=== PATIENT | female | born 1950 | race Caucasian/White ===

== ENCOUNTER 2021-09-20 12:46 | Inpatient (IN) | payer MEDICARE, OTHER ==
[2021-09-20] MEDS ORDERED: ALBUTEROL HFA INHALER INHALATION STA (13:18)
[2021-09-20] MEDS ORDERED: methylPREDNISolone SOD SUCCI 125 MG/2 ML VIAL IV STA (13:18)
--- NOTE | 2021-09-20 13:40 | ED ---
General Adult HPI - General Chief complaint: Shortness of Breath Stated complaint: SERGEI Time Seen by Provider: 09/20/21 13:00 Source: patient, RN notes reviewed, old records reviewed Mode of arrival: wheelchair Limitations: physical limitation - History of Present Illness Initial comments: Patient is a 71-year-old female with past medical history remarkable for pulmonary fibrosis, COPD, rheumatoid arthritis who support historian presents emergency Department complaining of progressively worsening shortness breath. This is been ongoing for multiple weeks to months. She is on 2 L nasal cannula at home. States that she gets worse shortness of breath with any form of movement at home. She states that her son made her come today for further evaluation and she has been having worsening shortness breath over the last few days. She was found to be mildly hypoxic in triage at 89%.Patient does endorse a history of COPD states she has been feeling more short of breath lately but is unable to say exactly how long she's been more short of breath. She believes it has been weeks. She was vaccinated with the initial 2 doses of she believes whether the visor COVID-19 vaccine. Did not receive a booster shot. No known sick contacts. Denies any fevers. Endorses very mild nonproductive cough. Denies any nausea, vomiting, abdominal pain, diarrhea. Does not believe she is on blood thinners no history of blood clots. Has no other acute complaint at this time. - Related Data Home Medications Medication Instructions Recorded Confirmed Apixaban [Eliquis] 5 mg PO BID 09/20/21 09/20/21 Budesonide [Pulmicort] 0.5 mg INHALATION RT-BID 09/20/21 09/20/21 predniSONE 10 mg PO BID 09/20/21 09/20/21 Allergies Allergy/AdvReac Type Severity Reaction Status Date / Time No Known Allergies Allergy Verified 09/20/21 15:13 Review of Systems ROS Statement: Those systems with pertinent positive or pertinent negative responses have been documented in the HPI. Review of Systems: CONST: Denies fever EYES: Denies blurry vision ENT: Denies nasal congestion C/V: Denies Chest pain RESP: Endorses shortness of breath GI: Denies abdominal pain : Denies dysuria SKIN: Denies rash. MSK: Denies joint pain. NEURO: Denies headache ROS Other: All systems not noted in ROS Statement are negative. Past Medical History Past Medical History: COPD, Rheumatoid Arthritis (RA) Additional Past Medical History / Comment(s): home oxygen use History of Any Multi-Drug Resistant Organisms: None Reported Past Surgical History: Section Past Psychological History: No Psychological Hx Reported Smoking Status: Former smoker Past Alcohol Use History: None Reported Past Drug Use History: None Reported General Exam - General Exam Comments Initial Comments: General: Appears in no acute distress. HEAD: Normal with no signs of head trauma. EYES: PERRLA, EOMI, conjunctiva normal, no discharge. ENT: Hearing grossly intact, normal oropharynx. RESPIRATORY: Mildly Increased work of breathing. Hypoxic on normal nasal cannula oxygen 2 L. Mild end expiratory wheezes bilaterally. No obvious rhonchi appreciated. C/V: Regular rate and rhythm. S1 and S2 auscultated, no edema, peripheral pulses 2+ and intact throughout ABD: Abd is soft, nontender, nondistended EXT: Normal range of motion, no obvious deformity SKIN: No rashes or lesions observed on exposed skin. NEURO: Alert and oriented 4. No focal deficits. Has underlying dementia per . Limitations: physical limitation Course Vital Signs 09/20/21 09/20/21 09/20/21 12:53 13:30 13:35 Temperature 98.2 F Pulse Rate 100 Respiratory 22 Rate Blood Pressure 111/70 O2 Sat by Pulse 89 L 70 L 92 L Oximetry 09/20/21 15:42 Temperature 98 F Pulse Rate 78 Respiratory 18 Rate Blood Pressure 118/97 O2 Sat by Pulse 92 L Oximetry Medical Decision Making - Medical Decision Making Based on the patient's presentation and physical exam, I'm concerned for acute infectious etiology for her current symptoms, including COVID-19 pneumonia. Cannot rule out influenza at this time either. This could just be chronic exacerbation of her pulmonary fibrosis. We will obtain a cardiac workup in addition to fluids Covid signs. She'll be given albuterol inhaler as well as IV steroids. D-dimer, troponin, BNP will be obtained. Patient was in agreement with this plan. Respiratory therapist will be monitoring the patient, she was placed on high flow, she did have an episode where she dropped onto 70% on room air. She removed her oxygen at that time. EKG showed no signs of acute ischemia. Chest x-ray revealed diffuse mild infiltrate bilaterally. Superimposed on chronic changes. Laboratory studies remarkable for an elevated d-dimer of 4.3. Patient has a troponin within normal limits at 0.031 as well as a BNP within normal limits at 1090. Patient will be started on maintenance IV fluids. Covid swab is positive, flu swab is negative. Remainder the patient's Covid 19 laboratory studies will be obtained.BNP is relatively normal at 1000. Patient does have an elevated LDH of 1200, and CRP of 18. I reevaluated the patient multiple times throughout her stay here. I spoke with the patient regarding her laboratory studies. She is Saturating 92% on high flow nasal cannula. Like to obtain CT imaging of her chest to a pulmonary embolism due to her elevated d-dimer and she was in agreement this plan. CT PE revealed no signs of pulmonary embolus. I updated the patient. Nursing staff up to the patient's . She'll be admitted to the hospital for further treatment. Pulmonology Dr. Avalos was consulted for her acute on chronic hypoxic respiratory failure as well as Covid 19 infection. She was started on twice a day Decadron, albuterol inhalers, Lovenox. Patient was in agreement this plan. I spoke with the admitting physi rima, Dr. Chan who is covering for Dr. Granados who accepted the patient. Patient was therefore admitted in serious condition. - Lab Data Result diagrams: 09/20/21 13:26 09/20/21 14:01 Lab Results 09/20/21 09/20/21 09/20/21 Range/Units 13:26 13:26 13:26 WBC 7.7 (3.8-10.6) k/uL RBC 4.81 (3.80-5.40) m/uL Hgb 14.1 (11.4-16.0) gm/dL Hct 45.2 (34.0-46.0) % MCV 94.0 (80.0-100.0) fL MCH 29.3 (25.0-35.0) pg MCHC 31.2 (31.0-37.0) g/dL RDW 14.9 (11.5-15.5) % Plt Count 297 (150-450) k/uL MPV 8.6 Neutrophils % 93 % Lymphocytes % 3 % Monocytes % 2 % Eosinophils % 0 % Basophils % 0 % Neutrophils # 7.2 (1.3-7.7) k/uL Lymphocytes # 0.2 L (1.0-4.8) k/uL Monocytes # 0.2 (0-1.0) k/uL Eosinophils # 0.0 (0-0.7) k/uL Basophils # 0.0 (0-0.2) k/uL Hypochromasia Moderate PT 11.6 (9.0-12.0) sec INR 1.1 (<1.2) APTT 27.2 (22.0-30.0) sec D-Dimer 4.31 H (<0.60) mg/L FEU Sodium (137-145) mmol/L Potassium (3.5-5.1) mmol/L Chloride (98-107) mmol/L Carbon Dioxide (22-30) mmol/L Anion Gap mmol/L BUN (7-17) mg/dL Creatinine (0.52-1.04) mg/dL Est GFR (CKD-EPI)AfAm (>60 ml/min/1.73 sqM) Est GFR (CKD-EPI)NonAf (>60 ml/min/1.73 sqM) Glucose (74-99) mg/dL Calcium (8.4-10.2) mg/dL Magnesium (1.6-2.3) mg/dL Total Bilirubin (0.2-1.3) mg/dL AST (14-36) U/L ALT (4-34) U/L Alkaline Phosphatase (38-126) U/L Lactate Dehydrogenase (313-618) U/L Troponin I (0.000-0.034) ng/mL C-Reactive Protein (<1.0) mg/dL NT-Pro-B Natriuret Pep 1090 pg/mL Total Protein (6.3-8.2) g/dL Albumin (3.5-5.0) g/dL Coronavirus (PCR) (Not Detectd) Influenza Type A RNA (Not Detectd) Influenza Type B (PCR) (Not Detectd) 09/20/21 09/20/21 09/20/21 Range/Units 13:26 13:26 14:01 WBC (3.8-10.6) k/uL RBC (3.80-5.40) m/uL Hgb (11.4-16.0) gm/dL Hct (34.0-46.0) % MCV (80.0-100.0) fL MCH (25.0-35.0) pg MCHC (31.0-37.0) g/dL RDW (11.5-15.5) % Plt Count (150-450) k/uL MPV Neutrophils % % Lymphocytes % % Monocytes % % Eosinophils % % Basophils % % Neutrophils # (1.3-7.7) k/uL Lymphocytes # (1.0-4.8) k/uL Monocytes # (0-1.0) k/uL Eosinophils # (0-0.7) k/uL Basophils # (0-0.2) k/uL Hypochromasia PT (9.0-12.0) sec INR (<1.2) APTT (22.0-30.0) sec D-Dimer (<0.60) mg/L FEU Sodium 136 L (137-145) mmol/L Potassium 4.4 (3.5-5.1) mmol/L Chloride 104 (98-107) mmol/L Carbon Dioxide 20 L (22-30) mmol/L Anion Gap 12 mmol/L BUN 19 H (7-17) mg/dL Creatinine 1.05 H (0.52-1.04) mg/dL Est GFR (CKD-EPI)AfAm 62 (>60 ml/min/1.73 sqM) Est GFR (CKD-EPI)NonAf 54 (>60 ml/min/1.73 sqM) Glucose 184 H (74-99) mg/dL Calcium 8.5 (8.4-10.2) mg/dL Magnesium 2.2 (1.6-2.3) mg/dL Total Bilirubin 0.7 (0.2-1.3) mg/dL AST 44 H (14-36) U/L ALT 18 (4-34) U/L Alkaline Phosphatase 69 (38-126) U/L Lactate Dehydrogenase (313-618) U/L Troponin I (0.000-0.034) ng/mL C-Reactive Protein (<1.0) mg/dL NT-Pro-B Natriuret Pep pg/mL Total Protein 8.1 (6.3-8.2) g/dL Albumin 3.7 (3.5-5.0) g/dL Coronavirus (PCR) Detected A (Not Detectd) Influenza Type A RNA Not Detected (Not Detectd) Influenza Type B (PCR) Not Detected (Not Detectd) 09/20/21 09/20/21 Range/Units 14:01 14:01 WBC (3.8-10.6) k/uL RBC (3.80-5.40) m/uL Hgb (11.4-16.0) gm/dL Hct (34.0-46.0) % MCV (80.0-100.0) fL MCH (25.0-35.0) pg MCHC (31.0-37.0) g/dL RDW (11.5-15.5) % Plt Count (150-450) k/uL MPV Neutrophils % % Lymphocytes % % Monocytes % % Eosinophils % % Basophils % % Neutrophils # (1.3-7.7) k/uL Lymphocytes # (1.0-4.8) k/uL Monocytes # (0-1.0) k/uL Eosinophils # (0-0.7) k/uL Basophils # (0-0.2) k/uL Hypochromasia PT (9.0-12.0) sec INR (<1.2) APTT (22.0-30.0) sec D-Dimer (<0.60) mg/L FEU Sodium (137-145) mmol/L Potassium (3.5-5.1) mmol/L Chloride (98-107) mmol/L Carbon Dioxide (22-30) mmol/L Anion Gap mmol/L BUN (7-17) mg/dL Creatinine (0.52-1.04) mg/dL Est GFR (CKD-EPI)AfAm (>60 ml/min/1.73 sqM) Est GFR (CKD-EPI)NonAf (>60 ml/min/1.73 sqM) Glucose (74-99) mg/dL Calcium (8.4-10.2) mg/dL Magnesium (1.6-2.3) mg/dL Total Bilirubin (0.2-1.3) mg/dL AST (14-36) U/L ALT (4-34) U/L Alkaline Phosphatase (38-126) U/L Lactate Dehydrogenase 1218 H (313-618) U/L Troponin I 0.031 (0.000-0.034) ng/mL C-Reactive Protein 18.6 H (<1.0) mg/dL NT-Pro-B Natriuret Pep pg/mL Total Protein (6.3-8.2) g/dL Albumin (3.5-5.0) g/dL Coronavirus (PCR) (Not Detectd) Influenza Type A RNA (Not Detectd) Influenza Type B (PCR) (Not Detectd) - EKG Data -: EKG Interpreted by Me EKG Comments: 12-lead Electrocardiogram Interpretation Note EKG was reviewed and interpreted by myself. 12-lead ECG performed at 1311 is interpreted by me as revealing normal sinus rhythm at a rate of 86 beats per minute. [place] is normal. OK interval is 119 ms, QRS duration is 78 ms, QTc is 454 ms.. There were no ST or T wave abnormalities to suggest myocardial ischemia or injury. R wave progression across the precordium was satisfactory. By my interpretation this EKG is non-diagnostic for acute ischemia. Critical Care Time Critical Care Time: Yes Total Critical Care Time: 35 Critical Care Time: Upon my evaluation, this patient had a high probability of imminent or life- threatening deterioration due to acute on chronic hypoxic respiratory failure, COVID-19 infection, which required my direct attention, intervention, and personal management. I have personally provided 35 minutes of critical care time exclusive of time spent on separately billable procedures. Time includes review of laboratory data, radiology results, discussion with consultants, and monitoring for potential decompensation. Interventions were performed as documented in my note. Disposition Clinical Impression: Pneumonia due to COVID-19 virus, Acute on chronic respiratory failure with hypoxia Disposition: ADMITTED IP TO THIS HOSP Condition: Serious Is patient prescribed a controlled substance at d/c from ED?: No Referrals: Lamont Granados MD [Primary Care Provider] - 1-2 days
[2021-09-20 13:51] LABS: Basophils % (A) 0 %; Eosinophils % (A) 0 %; HCT 45.2 % (34.0-46.0); HGB 14.1 gm/dL (11.4-16.0); Hypochromasia Moderate; Lymphocytes # (A) 0.2 k/uL (1.0-4.8); Lymphocytes % (A) 3 %; MCH 29.3 pg (25.0-35.0); MCHC 31.2 g/dL (31.0-37.0); Mean Platelet Volume 8.6; Monocytes # (A) 0.2 k/uL (0-1.0); Monocytes % (A) 2 %; Neutrophils # (A) 7.2 k/uL (1.3-7.7); Neutrophils % (A) 93 %; Platelet Count 297 k/uL (150-450); RBC 4.81 m/uL (3.80-5.40); RDW 14.9 % (11.5-15.5); WBC 7.7 k/uL (3.8-10.6)
--- NOTE | 2021-09-20 13:58 | XR ---
EXAMINATION TYPE: XR chest 2V DATE OF EXAM: 09/20/2021 COMPARISON: 07/04/2019 INDICATION: difficulty breathing TECHNIQUE: Frontal and lateral views of the chest are obtained. FINDINGS: The heart size is normal. The pulmonary vasculature is prominent. Diffuse increased lung markings are present bilaterally. Findings are nonspecific but can be related to atypical pneumonia. Underlying chronic changes may be present. IMPRESSION: 1. Diffuse mild infiltrate present bilaterally. Correlate for pulmonary edema or atypical pneumonia. This could be superimposed some chronic changes. Follow-up is recommended
[2021-09-20] MEDS ORDERED: ACETAMINOPHEN TAB 325 MG TAB PO PRN (14:31)
[2021-09-20 14:32] LABS: INR 1.1 (<1.2); Partial Thromboplastin Time 27.2 sec (22.0-30.0); Prothrombin Time 11.6 sec (9.0-12.0)
[2021-09-20 14:33] LABS: Albumin 3.7 g/dL (3.5-5.0); Calcium 8.5 mg/dL (8.4-10.2); Magnesium 2.2 mg/dL (1.6-2.3); Potassium 4.4 mmol/L (3.5-5.1); Total Bilirubin 0.7 mg/dL (0.2-1.3); Total Protein 8.1 g/dL (6.3-8.2)
[2021-09-20] MEDS ORDERED: SODIUM CHLORIDE 0.9% 1,000 ML IV STA (15:05)
[2021-09-20 15:29] LABS: C Reactive Protein 18.6 mg/dL (<1.0)
--- NOTE | 2021-09-20 15:49 | CT ---
EXAMINATION TYPE: CT chest angio for PE DATE OF EXAM: 09/20/2021 COMPARISON: Chest x-ray 09/20/2021 HISTORY: difficulty breathing, elevated dimer, covid CT DLP: 397.8 mGycm Automated exposure control for dose reduction was used. CONTRAST: CT Chest for pulmonary embolism performed with with IV Contrast, patient injected with 80 mL of Isovu e 370. Three-dimensional reconstructions performed on an alternate workstation. FINDINGS: LUNGS: There is extensive centrilobular and paraseptal emphysematous change. Interstitial changes are also present, suspect basilar honeycombing consistent with end-stage lung disease, pulmonary fibrosi s. No pleural effusion or pneumothorax. MEDIASTINUM: There is satisfactory enhancement of the pulmonary artery and its branches, there is no CT evidence for pulmonary embolism. Subcarinal soft tissue may represent an mass, adenopathy measurin g approximately 2.7 x 1.7 x 3.4 cm. No pericardial effusion is seen. AORTA: No additional significant abnormality is seen. OTHER: There is a spinal curvature, osteoporotic compression fractures are present at the mid and lo wer thoracic spine. There is a hiatal hernia with partial intrathoracic stomach. IMPRESSION: No evident pulmonary embolism. End-stage lung disease. Subcarinal adenopathy suspected. Paraesophagea l hiatal hernia. Additional findings above.
[2021-09-20] MEDS ORDERED: NALOXONE 0.4 MG/ML 1 ML VIAL IV PRN (15:51)
[2021-09-20] MEDS ORDERED: ENOXAPARIN 40 MG/0.4 ML SYRINGE SQ SCH (16:00)
--- NOTE | 2021-09-20 17:11 | P.CNPUL ---
History of Present Illness Consult date: 09/20/21 Requesting physician: Lamont Granados Reason for consult: dyspnea, hypoxemia, abnormal CXR/CT Chief complaint: Shortness of breath, altered mental status History of present illness: This is a 71-year-old female patient who follows with Dr. Gilmore as her primary care provider. She has a history of rheumatoid arthritis, previous chronic tobacco dependence, mild COPD, DVT of the left lower extremity and history of subacute massive pulmonary embolism maintained on lifelong anticoagulation in th e form of Eliquis. She also has chronic hypoxemic respiratory failure secondary to interstitial lung disease most likely related to her rheumatoid arthritis. She was last seen in our office in February 2020. Back then she had been on Xeljanz and Eliquis. She was brought into the emergency room today with hypoxemia with O2 saturations in the 60s and 70s according to the patient's . She is n ormally on oxygen at 2 L at home. She is seen today in consultation in the emergency room. She is currently sitting up in the stretcher. She has somewhat altered. Awake and alert but confused as to why she's even here in the hospital. She is currently on 15 L high flow nasal cannula to maintain O2 saturations in the low 90s. Chest x-ray shows diffuse mild infiltrate present bilaterally. CT angiogram ruled out pulmonary embolism. She does have evidence of end-stage lung disease and evidence of pulmonary fibrosis. Subcarinal adenopathy suspected. This is measuring 2.7 x 1.7 x 3.4 cm. Paraesophageal hiatal hernia. White count 7.7. Hemoglobin 14.1. Platelets 297. Lymphocytes 0.2. D-dimer 4.31. Sodium 136. Potassium 4.4. Creatinine 1.05. Glucose 184. LDH 1218. C-reactive protein 18.6. Her BMP 1090. Troponin 0.031. Rizo virus by PCR positive. She was initiated on Decadron and Lovenox. Review of Systems ROS unobtainable: due to mental status Past Medical History Past Medical History: COPD, Rheumatoid Arthritis (RA) Additional Past Medical History / Comment(s): home oxygen use History of Any Multi-Drug Resistant Organisms: None Reported Past Surgical History: Section Past Psychological History: No Psychological Hx Reported Smoking Status: Former smoker Past Alcohol Use History: None Reported Past Drug Use History: None Reported Medications and Allergies Home Medications Medication Instructions Recorded Confirmed Type Apixaban [Eliquis] 5 mg PO BID 09/20/21 09/20/21 History Budesonide [Pulmicort] 0.5 mg INHALATION RT-BID 09/20/21 09/20/21 History predniSONE 10 mg PO BID 09/20/21 09/20/21 History Allergies Allergy/AdvReac Type Severity Reaction Status Date / Time No Known Allergies Allergy Verified 09/20/21 15:13 Physical Exam Vitals: Vital Signs Temp Pulse Resp BP Pulse Ox 09/20/21 15:42 98 F 78 18 118/97 92 L 09/20/21 13:35 92 L 09/20/21 13:30 70 L 09/20/21 12:53 98.2 F 100 22 111/70 89 L Intake and Output 09/20/21 09/20/21 09/20/21 06:59 14:59 22:59 Other: Weight 68.039 kg GENERAL EXAM: Alert, doesn't, confused 71-year-old female patient, on 15 L high flow nasal cannula,, comfortable in no apparent distress. HEAD: Normocephalic. EYES: Normal reaction of pupils, equal size. NOSE: Clear with pink turbinates. THROAT: No erythema or exudates. NECK: No masses, no JVD. CHEST: No chest wall deformity. LUNGS: Equal air entry with coarse crackles in the bilateral bases. CVS: S1 and S2 normal with no audible murmur, regular rhythm. ABDOMEN: No hepatosplenomegaly, normal bowel sounds, no guarding or rigidity. SPINE: No scoliosis or deformity SKIN: No rashes CENTRAL NERVOUS SYSTEM: No focal deficits, tone is normal in all 4 extremities. EXTREMITIES: There is no peripheral edema. No clubbing, no cyanosis. Peripheral pulses are intact. Results - Laboratory Findings CBC and BMP: 09/20/21 13:26 09/20/21 14:01 PT/INR, D-dimer PT 11.6 sec (9.0-12.0) 09/20/21 13:26 INR 1.1 (<1.2) 09/20/21 13:26 D-Dimer 4.31 mg/L FEU (<0.60) H 09/20/21 13:26 Abnormal lab findings: Abnormal Labs 09/20/21 09/20/21 09/20/21 13:26 13:26 13:26 Lymphocytes # 0.2 L D-Dimer 4.31 H Sodium Carbon Dioxide BUN Creatinine Glucose AST Lactate Dehydrogenase C-Reactive Protein Coronavirus (PCR) Detected A 09/20/21 09/20/21 14:01 14:01 Lymphocytes # D-Dimer Sodium 136 L Carbon Dioxide 20 L BUN 19 H Creatinine 1.05 H Glucose 184 H AST 44 H Lactate Dehydrogenase 1218 H C-Reactive Protein 18.6 H Coronavirus (PCR) - Diagnostic Findings Chest x-ray: image reviewed CT scan - chest: image reviewed Assessment and Plan Assessment: 1 Acute on chronic hypoxemic respiratory failure secondary to acute COVID-19 pneumonia. The patient had previously been vaccinated. No booster. Unsure as to when her symptoms started. She is a poor historian. Currently on 15 L high flow nasal cannula. 2 Chronic hypoxemic respiratory failure secondary to interstitial lung disease, suspect secondary to rheumatoid arthritis, normally on 2 L nasal cannula 3 Rheumatoid arthritis previously on Xeljanz and Humira [place] for History of sub-acute massive pulmonary embolism. Recommended long-term anticoagulation and remains on Eliquis 4 History of left lower extremity DVT, currently on Eliquis 5 Chronic obstructive pulmonary disease 6 Previous history of chronic tobacco dependence Plan: The patient was seen and evaluated in the emergency department Chest x-ray, CAT scans and labs reviewed Continue Decadron at 6 mg daily Continue her Eliquis at 5 mg twice a day Add vitamin supplements Check a pro-calcitonin May benefit from Baricitinib Titrate the FiO2 as tolerated We will continue to follow and make further recommendations based on her clinical status I, the cosigning physician, performed a history & physical examination of the patient. Lungs sounds are coarse crackles in the posterior bases. Maintaining O2 saturations in the 90s on 15 L high flow nasal cannula. I discussed the ass essment and plan of care with my nurse practitioner, Suzy Donohue. I attest to the above consultation as dictated by her. Time with Patient: Greater than 30
[2021-09-20] MEDS: ASCORBIC ACID 500 MG TAB PO SCH (17:24)
[2021-09-20] MEDS: ZINC SULFATE 220 MG CAP PO SCH (17:24)
[2021-09-20] MEDS: CHOLECALCIFEROL 125 MCG (5000 IU) TABLET PO SCH (17:24)
[2021-09-20] MEDS ORDERED: DEXAMETHASONE SOD PHOSPHATE 10 MG/ML 1 ML VIAL IVP SCH (21:00)
[2021-09-20] MEDS ORDERED: METOPROLOL TARTRATE 25 MG TAB PO STA (21:49)
[2021-09-20] MEDS: APIXABAN 5 MG TAB PO SCH (22:05)
--- NOTE | 2021-09-20 23:20 | P.HPIM ---
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 Apparently patient was found to be hypoxic with pulse ox in the 60s to 70s according to her . Patient has been having worsening shortness of breath for the past few days. Denies any fever or chills. Cough without any sputum production. No nausea vomiting abdominal pain or diarrhea. Patient is vaccinated against COVID-19 with 2 doses. Not received a booster dose yet. Chest x-ray showed diffuse mild infiltrate present bilaterally. Correlate for pulmonary edema or atypical pneumonia. This could be superimposed some chronic changes. Follow-up is recommended. Laboratory data showed D-dimer level 4.[address] angiogram was done which showed no acute pulmonary embolism. End-stage lung disease. Subcarinal adenopathy suspected. Paraesophageal hiatal hernia. Extensive centrilobular and paraseptal emphysematous change. Interstitial changes are also present. Suspected basilar honeycombing consistent with end-stage lung disease. Laboratory showed no wheezing 7.7 hemoglobin 14.1 and platelets 297. Lymphocytes 0.2 D-dimer is 4.31 Sodium 136 potassium 4.4 chloride 104 bicarb is 20 BUN 19 and creatinine 1.05 and blood sugar is 184 lactic acid 4.1 AST 44 ALT 18 alk phos 69 LDH is 1218 troponin 0 0.031 and CRP 18.6 proBNP 1090 and coronavirus PCR detected Review of Systems Constitutional: Patient denies any fever or chills . Does have generalized weakness. No weight loss. Abdomen: Patient denied nausea vomiting and diarrhea and abdominal pain. Cardiovascular: Patient denies any chest pain. Positive short of breath no palpitations. Respiratory: Patient does have cough with minimal sputum production. Shortness of breath. Neurologic: Patient denied any numbness or tingling headache. Musculoskeletal: Patient denies any complaints of joint swelling or deformity. Skin: Negative Psychiatric: Negative Endocrine: No heat or cold intolerance. No recent weight gain. Genitourinary: No dysuria or hematuria. All other 14 point ROS negative except the above Past Medical History Past Medical History: COPD, Rheumatoid Arthritis (RA) Additional Past Medical History / Comment(s): home oxygen use History of Any Multi-Drug Resistant Organisms: None Reported Past Surgical History: Section Past Psychological History: No Psychological Hx Reported Smoking Status: Former smoker Past Alcohol Use History: None Reported Past Drug Use History: None Reported Medications and Allergies Home Medications Medication Instructions Recorded Confirmed Type Apixaban [Eliquis] 5 mg PO BID 09/20/21 09/20/21 History Budesonide [Pulmicort] 0.5 mg INHALATION RT-BID 09/20/21 09/20/21 History predniSONE 10 mg PO BID 09/20/21 09/20/21 History Allergies Allergy/AdvReac Type Severity Reaction Status Date / Time No Known Allergies Allergy Verified 09/20/21 15:13 Physical Exam Vitals: Vital Signs Temp Pulse Pulse Resp BP BP Pulse Ox 09/20/21 22:02 97.8 F 70 30 H 136/85 92 L 09/20/21 19:57 86 L 09/20/21 17:36 98.6 F 86 17 115/76 90 L 09/20/21 15:42 98 F 78 18 118/97 92 L 09/20/21 13:35 92 L 09/20/21 13:30 70 L 09/20/21 12:53 98.2 F 100 22 111/70 89 L Intake and Output 09/20/21 09/20/21 09/21/21 14:59 22:59 06:59 Other: Voiding Method Bedside Commode # Voids 1 Weight 68.039 kg 68.039 kg PHYSICAL EXAMINATION: Patient is lying in the bed comfortably, no acute distress, awake alert and oriented.. HEENT: Normocephalic. Neck is supple. Pupils reactive. Nostrils clear. Oral cavity is moist. Neck reveals no JVD, carotid bruits, or thyromegaly. CHEST EXAMINATION: Trachea is central. Symmetrical expansion.Bilateral fine crackles and diminished air sounds. No wheezing. Nonlabored breathing.. CARDIAC: Normal S1, S2 with no gallops. No murmurs ABDOMEN: Soft. Bowel sounds normal. No organomegaly. No abdominal bruits. Extremities: reveal no edema. No clubbing or cyanosis Neurologically awake, alert, oriented x3 with well-coordinated movements. Mild cognitive impairment. No focal deficits noted Skin: No rash or skin lesions. Psychiatric: Cooperative. Nonsuicidal Musculoskeletal: No joint swelling or deformity. Normal range of motion. Results CBC & Chem 7: 09/20/21 13:26 09/20/21 14:01 Labs: Abnormal Lab Results - Last 24 Hours (Table) 09/20/21 09/20/21 09/20/21 Range/Units 13:26 13:26 13:26 Lymphocytes # 0.2 L (1.0-4.8) k/uL D-Dimer 4.31 H (<0.60) mg/L FEU Sodium (137-145) mmol/L Carbon Dioxide (22-30) mmol/L BUN (7-17) mg/dL Creatinine (0.52-1.04) mg/dL Glucose (74-99) mg/dL Plasma Lactic Acid Reyes (0.7-2.0) mmol/L AST (14-36) U/L Lactate Dehydrogenase (313-618) U/L C-Reactive Protein (<1.0) mg/dL Coronavirus (PCR) Detected A (Not Detectd) 09/20/21 09/20/21 09/20/21 Range/Units 14:01 14:01 14:50 Lymphocytes # (1.0-4.8) k/uL D-Dimer (<0.60) mg/L FEU Sodium 136 L (137-145) mmol/L Carbon Dioxide 20 L (22-30) mmol/L BUN 19 H (7-17) mg/dL Creatinine 1.05 H (0.52-1.04) mg/dL Glucose 184 H (74-99) mg/dL Plasma Lactic Acid Reyes 4.1 H* (0.7-2.0) mmol/L AST 44 H (14-36) U/L Lactate Dehydrogenase 1218 H (313-618) U/L C-Reactive Protein 18.6 H (<1.0) mg/dL Coronavirus (PCR) (Not Detectd) 09/20/21 Range/Units 21:25 Lymphocytes # (1.0-4.8) k/uL D-Dimer (<0.60) mg/L FEU Sodium (137-145) mmol/L Carbon Dioxide (22-30) mmol/L BUN (7-17) mg/dL Creatinine (0.52-1.04) mg/dL Glucose (74-99) mg/dL Plasma Lactic Acid Reyes 2.5 H* (0.7-2.0) mmol/L AST (14-36) U/L Lactate Dehydrogenase (313-618) U/L C-Reactive Protein (<1.0) mg/dL Coronavirus (PCR) (Not Detectd) Thrombosis Risk Factor Assmnt - DVT/VTE Prophylaxis DVT/VTE Prophylaxis: Pharmacologic Prophylaxis ordered - Choose All That Apply Each Risk Factor Represents 2 Points: Age 61-74 years Each Risk Factor Represents 3 Points: History of DVT/PE Thrombosis Risk Factor Assessment Total Risk Factor Score: 5 Thrombosis Risk Factor Assessment Level: High Risk Assessment and Plan Assessment: Acute on chronic hypoxemic respiratory failure secondary to COVID-19 pneumonia. Patient is vaccinated with 2 doses. Awaiting both discharge. Currently requiring 15 L high flow oxygen via nasal cannula. Chronic hypoxic respiratory failure secondary to interstitial lung disease due to rheumatoid arthritis on 2 L oxygen via nasal cannula. 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 with Eliquis History of DVT left lower extremity COPD Prior history of smoking Plan: Patient will be continued on oxygen supplementation and titrate down FiO2 as tolerated. Patient was started on dexamethasone and continue with Eliquis. Continue with multivitamin supplementation. Pulmonary is on board and is considering baricitinib. Prognosis guarded. Continue to follow closely. Time with Patient: Greater than 30
[2021-09-21] MEDS: ASCORBIC ACID 500 MG TAB PO SCH (08:04)
[2021-09-21] MEDS: ZINC SULFATE 220 MG CAP PO SCH (08:04)
[2021-09-21] MEDS: CHOLECALCIFEROL 125 MCG (5000 IU) TABLET PO SCH (08:04)
[2021-09-21] MEDS: APIXABAN 5 MG TAB PO SCH ×2 (08:04→20:00)
[2021-09-21] MEDS: DEXAMETHASONE SOD PHOSPHATE 10 MG/ML 1 ML VIAL IVP SCH (08:05)
[2021-09-21 09:04] LABS: Basophils # (A) 0 X 10*3/uL (0.00-0.10); Basophils % (A) 0 %; Eosinophils # (A) 0 X 10*3/uL (0.04-0.35); Eosinophils % (A) 0 %; HCT 38.1 % (37.2-46.3); HGB 11.7 g/dL (12.0-15.0); Immature Grans, Automated 0.5 %; Lymphocytes # (A) 0.48 X 10*3/uL (0.90-5.00); Lymphocytes % (A) 11.2 %; MCH 27.9 pg (27.0-32.0); MCHC 30.7 g/dL (32.0-37.0); MCV 90.9 fL (80.0-97.0); Monocytes # (A) 0.31 X 10*3/uL (0.20-1.00); Monocytes % (A) 7.2 %; NRBC Per 100 WBC 0 /100 WBCS (0.0-0.0); Neutrophils # (A) 3.49 X 10*3/uL (1.80-7.70); Neutrophils % (A) 81.1 %; Platelet Count 272 X 10*3/uL (140-440); RBC 4.19 X 10*6/uL (4.10-5.20); RDW 14.7 % (11.5-14.5)
[2021-09-21 09:14] LABS: African American GFR (CKD) 86.6 (60.0-200.0); Anion Gap 14.8 mmol/L (10.00-18.00); BUN/Creat Ratio 18.88 Ratio (12.00-20.00); Blood Urea Nitrogen 15.1 mg/dL (9.0-27.0); Carbon Dioxide 18.2 mmol/L (20.0-27.5); Non-African American GFR(CKD) 74.7 (60.0-200.0); Potassium 4.1 mmol/L (3.5-5.5)
--- NOTE | 2021-09-21 16:17 | P.PN ---
Subjective Progress Note Date: 09/21/21 Principal diagnosis: Coronavirus pneumonia. This is a 71-year-old female patient who follows with Dr. Gilmore as her primary care provider. She has a history of rheumatoid arthritis, previous chronic tobacco dependence, mild COPD, DVT of the left lower extremity and history of subacute massive pulmonary embolism maintained on lifelong anticoagulation in the form of Eliquis. She also has chronic hypoxemic respiratory failure secondary to interstitial lung disease most likely related to her rheumatoid arthritis. She was last seen in our office in February 2020. Back then she had been on Xeljanz and Eliquis. She was brought into the emergency room today with hypoxemia with O2 saturations in the 60s and 70s according to the patient's . She is normally on oxygen at 2 L at home. She is seen today in consultation in the emergency room. She is currently sitting up in the stretcher. She has somewhat altered. Awake and alert but confused as to why she's even here in the hospital. She is currently on 15 L high flow nasal cannula to maintain O2 saturations in the low 90s. Chest x-ray shows diffuse mild infiltrate present bilaterally. CT angiogram ruled out pulmonary embolism. She does have evidence of end-stage lung disease and evidence of pulmonary fibr osis. Subcarinal adenopathy suspected. This is measuring 2.7 x 1.7 x 3.4 cm. Paraesophageal hiatal hernia. White count 7.7. Hemoglobin 14.1. Platelets 297. Lymphocytes 0.2. D-dimer 4.31. Sodium 136. Potassium 4.4. Creatinine 1.05. Glucose 184. LDH 1218. C-reactive protein 18.6. Her BMP 1090. Troponin 0.031. Rizo virus by PCR positive. She was initiated on Decadron and Lovenox. Progress note dated 09/21/2021. 71-year-old female seen yesterday in consultation. The patient has a history of rheumatoid arthritis, chronic tobacco use, COPD, DVT, and subacute massive pulmonary embolism, maintained on lifelong anticoagulation. The patient was admitted with a diagnosis of acute on chronic hypoxemic respiratory failure secondary to acute coronavirus pneumonia. The patient apparently has been previously vaccinated. The patient also has a history of rheumatoid arthritis as mentioned above. Currently, the patient's on 15 L high flow nasal O2. Typically, she is on 2 L at home. She's not a practically good historian and was very difficult getting any history from her. Today's laboratory data includes a white count of 4.3, hemoglobin 11.7, hematocrit 38.1, and platelet count of 272,000. Sodium 135, potassium 4.1, chlorides 102, CO2 18, anion gap is 15, BUN 15.1, and creatinine 0.8. Objective - Vital Signs Vital signs: Vital Signs Temp 97.7 F 09/21/21 14:00 Pulse 79 09/21/21 14:00 Resp 18 09/21/21 14:00 BP 120/74 09/21/21 14:00 Pulse Ox 92 L 09/21/21 14:00 Intake & Output 09/20/21 09/21/21 09/21/21 18:59 06:59 18:59 Intake Total 480 Balance 480 Weight 68.039 kg Intake: Oral 480 Other: Voiding Method Bedside Commode # Voids 1 - Exam No acute distress, oriented 3. Currently on 15 L high flow nasal cannula. The patient appears to be a bit confused. HEENT examination is grossly unremarkable. Neck supple. Full range of motion. No adenopathy thyromegaly or neck vein distention. Cardiovascular examination reveals regular rhythm rate. S1-S2 normal. No S3 or S4. No discernible murmur noted. Heart rate 88 bpm. Heart sounds are distant. Lungs reveal bibasilar rhonchi and crackles. Breath sounds equal. There are no wheezes. Abdomen soft bowel sounds are heard. No masses or tenderness. Extremities are intact. No cyanosis clubbing or edema. Skin is without rash or lesion. Neurologic examination is brief but nonfocal. - Labs CBC & Chem 7: 09/21/21 05:47 09/21/21 05:47 Labs: Abnormal Lab Results - Last 24 Hours (Table) 09/20/21 09/20/21 09/20/21 Range/Units 14:01 14:01 14:50 WBC (4.50-10.00) X 10*3/uL Hgb (12.0-15.0) g/dL MCHC (32.0-37.0) g/dL RDW (11.5-14.5) % Lymphocytes # (0.90-5.00) X 10*3/uL Eosinophils # (0.04-0.35) X 10*3/uL Carbon Dioxide (20.0-27.5) mmol/L Glucose (70-110) mg/dL Plasma Lactic Acid Reyes 4.1 H* (0.7-2.0) mmol/L Calcium (8.7-10.3) mg/dL Ferritin 342.0 H (10.0-291.0) ng/mL Procalcitonin 0.96 H (0.02-0.09) ng/mL 09/20/21 09/21/21 09/21/21 Range/Units 21:25 05:47 05:47 WBC 4.30 L (4.50-10.00) X 10*3/uL Hgb 11.7 L (12.0-15.0) g/dL MCHC 30.7 L (32.0-37.0) g/dL RDW 14.7 H (11.5-14.5) % Lymphocytes # 0.48 L (0.90-5.00) X 10*3/uL Eosinophils # 0 L (0.04-0.35) X 10*3/uL Carbon Dioxide 18.2 L (20.0-27.5) mmol/L Glucose 159 H (70-110) mg/dL Plasma Lactic Acid Reyes 2.5 H* (0.7-2.0) mmol/L Calcium 8.0 L (8.7-10.3) mg/dL Ferritin (10.0-291.0) ng/mL Procalcitonin (0.02-0.09) ng/mL Assessment and Plan Assessment: Acute on chronic hypoxemic respiratory failure secondary to coronavirus associat ed pneumonia. Chronic hypoxemic respiratory failure, secondary to interstitial lung disease, with possible rheumatoid arthritis associated pulmonary fibrosis. History of rheumatoid arthritis. History of subacute massive pulmonary embolism, on lifelong anticoagulation. History of left lower extremity DVT. History of COPD, secondary to chronic tobacco dependence. Plan: Plan dated 09/21/2021. The patient remains on an albuterol inhaler, vitamin C, vitamin D3, Decadron, zinc, and Eliquis chronically. The patient is currently on 15 L high flow nasal O2. She does not appear to be overwhelmingly short of breath despite her high oxygen requirements. Saturations are 92%. The rest of her vital signs are stable including a heart rate of 79 bpm, and a respiratory rate of between 16-18 breaths per minute. We will continue to follow make recommendations where appropriate. Prognosis is guarded. We had considered giving the patient LAILA, but we are concerned because her pro-calcitonin level was 0.96. Time with Patient: Less than 30
[2021-09-22] MEDS: ZINC SULFATE 220 MG CAP PO SCH (07:11)
[2021-09-22] MEDS: APIXABAN 5 MG TAB PO SCH ×2 (07:11→20:24)
[2021-09-22] MEDS: ASCORBIC ACID 500 MG TAB PO SCH (07:11)
[2021-09-22] MEDS: CHOLECALCIFEROL 125 MCG (5000 IU) TABLET PO SCH (07:12)
[2021-09-22] MEDS: DEXAMETHASONE SOD PHOSPHATE 10 MG/ML 1 ML VIAL IVP SCH (08:16)
[2021-09-22] MEDS: ONDANSETRON 4 MG/2 ML VIAL IVP PRN (08:19)
[2021-09-22 09:17] LABS: Basophils # (A) 0.01 X 10*3/uL (0.00-0.10); Basophils % (A) 0.1 %; Eosinophils # (A) 0 X 10*3/uL (0.04-0.35); Eosinophils % (A) 0 %; HCT 36.6 % (37.2-46.3); Immature Grans, Automated 0.6 %; Lymphocytes # (A) 0.44 X 10*3/uL (0.90-5.00); MCH 27.6 pg (27.0-32.0); MCHC 30.1 g/dL (32.0-37.0); MCV 91.7 fL (80.0-97.0); Mean Platelet Volume 10.4 fL (9.5-12.2); Monocytes # (A) 0.52 X 10*3/uL (0.20-1.00); Monocytes % (A) 3.6 %; NRBC Per 100 WBC 0 /100 WBCS (0.0-0.0); Neutrophils # (A) 13.49 X 10*3/uL (1.80-7.70); Neutrophils % (A) 92.7 %; Platelet Count 303 X 10*3/uL (140-440); RBC 3.99 X 10*6/uL (4.10-5.20); RDW 14.6 % (11.5-14.5); WBC 14.54 X 10*3/uL (4.50-10.00)
[2021-09-22 09:25] LABS: African American GFR (CKD) 88.7 (60.0-200.0); Anion Gap 13.5 mmol/L (10.00-18.00); BUN/Creat Ratio 28.57 Ratio (12.00-20.00); Blood Urea Nitrogen 22.4 mg/dL (9.0-27.0); Carbon Dioxide 18.4 mmol/L (20.0-27.5); Non-African American GFR(CKD) 76.5 (60.0-200.0); Potassium 3.6 mmol/L (3.5-5.5)
--- NOTE | 2021-09-22 13:00 | P.CRDCN ---
History of Present Illness Consult date: 09/22/21 Chief complaint: Shortness of breath History of present illness: The patient is a pleasant 71-year-old female patient with a past medical history significant for chronic hypoxic respiratory failure and also history of pulmonary fibrosis as well as chronic obstructive pulmonary disease and also history of DVT/PE who requested to see on the fourth floor for further evaluation off cardiac arrhythmia/atrial fibrillation. The patient is somewhat is a poor historian and she is confused as well. She presented to the hospital complaining of shortness of breath and she was hypoxic. Her oxygen saturation was in the 70s when she was evaluated in the emergency department. Denies any cough or sputum or fever or chills. The patient was tested positive for COVID- 19 infection and currently she is on isolation. She does not recall having any symptoms of chest pain or chest discomfort or dizziness or lightheadedness or any presyncope or syncope. We requested to see the patient for further evaluation of atrial fibrillation. The A. fib was noted on the monitor but the time an EKG was performed she was in sinus mechanism. So overall and no documentation of atrial fibrillation by 12 please EKG. Currently the patient is in sinus rhythm and sinus tachycardia and she is also slightly hypertensive. No history of paroxysmal atrial fibrillation. She currently on oral anticoagulation for DVT/PE. She underwent a workup including sodium of 136 and potassium of 4.4 and creatinine of 1.05. Her EKG showed sinus mechanism without any significant ST or T-wave abnormalities. At this point I'm going to start the patient on Toprol-XL at 25 mg by mouth daily. We will obtain an echocardiogram to evaluate the left ventricle systolic function. We'll continue following up with her. Past Medical History Past Medical History: COPD, Rheumatoid Arthritis (RA) Additional Past Medical History / Comment(s): home oxygen use History of Any Multi-Drug Resistant Organisms: None Reported Past Surgical History: Section Past Psychological History: No Psychological Hx Reported Smoking Status: Former smoker Past Alcohol Use History: None Reported Past Drug Use History: None Reported Medications and Allergies Home Medications Medication Instructions Recorded Confirmed Type Apixaban [Eliquis] 5 mg PO BID 09/20/21 09/20/21 History Budesonide [Pulmicort] 0.5 mg INHALATION RT-BID 09/20/21 09/20/21 History predniSONE 10 mg PO BID 09/20/21 09/20/21 History Allergies Allergy/AdvReac Type Severity Reaction Status Date / Time No Known Allergies Allergy Verified 09/20/21 15:13 Physical Exam Vitals: Vital Signs Temp Pulse Resp BP Pulse Ox 09/22/21 10:00 98.7 F 71 16 161/93 96 09/22/21 05:18 98.6 F 77 22 118/66 92 L 09/22/21 02:00 97.4 F L 73 19 151/89 91 L 09/21/21 21:06 97.6 F 63 17 139/94 96 09/21/21 18:00 97.8 F 78 15 124/77 90 L 09/21/21 14:00 97.7 F 79 18 120/74 92 L Intake and Output 09/21/21 09/22/21 09/22/21 22:59 06:59 14:59 Output Total 600 Balance -600 Output: Urine 600 Other: Voiding Method Bedside Commode # Bowel Movements 2 - Constitutional General appearance: no acute distress - Respiratory Respiratory: bilateral: diminished - Cardiovascular Rhythm: regular Heart sounds: normal: S1, S2 Results 09/22/21 06:05 09/22/21 06:05 CBC 09/22/21 Range/Units 06:05 WBC 14.54 H (4.50-10.00) X 10*3/uL RBC 3.99 L (4.10-5.20) X 10*6/uL Hgb 11.0 L (12.0-15.0) g/dL Hct 36.6 L (37.2-46.3) % Plt Count 303 (140-440) X 10*3/uL Comprehensive Metabolic Panel 09/22/21 Range/Units 06:05 Sodium 139 (135-145) mmol/L Potassium 3.6 (3.5-5.5) mmol/L Chloride 107 (96-109) mmol/L Carbon Dioxide 18.4 L (20.0-27.5) mmol/L BUN 22.4 (9.0-27.0) mg/dL Creatinine 0.8 (0.6-1.5) mg/dL Glucose 145 H (70-110) mg/dL Calcium 8.0 L (8.7-10.3) mg/dL Current Medications Generic Name Dose Route Start Last Admin Trade Name Freq PRN Reason Stop Dose Admin Acetaminophen 650 mg 09/20/21 14:31 Acetaminophen Tab 325 Mg Tab PO Q4HR PRN Fever>101 Albuterol Sulfate 2 puff 09/20/21 14:31 Albuterol Hfa Inhaler INHALATION RT-Q6H PRN Shortness Of Breath Or Wheezing Apixaban 5 mg 09/20/21 21:00 09/22/21 07:11 Apixaban 5 Mg Tab PO 5 mg BID SARAHI Administration Protocol Ascorbic Acid 1,000 mg 09/20/21 17:15 09/22/21 07:11 Ascorbic Acid 500 Mg Tab PO 1,000 mg DAILY SARAHI Administration Cholecalciferol 125 mcg 09/20/21 17:15 09/22/21 07:12 Cholecalciferol 125 Mcg (5000 Iu) Tablet PO 125 mcg DAILY SARAHI Administration Dexamethasone Sodium Phosphate 6 mg 09/21/21 09:00 09/22/21 08:16 Dexamethasone Sod Phosphate 10 Mg/Ml 1 Ml Vial IVP 6 mg DAILY SARAHI Administration Naloxone HCl 0.2 mg 09/20/21 15:51 Naloxone 0.4 Mg/Ml 1 Ml Vial IV Q2M PRN Opioid Reversal Ondansetron HCl 4 mg 09/22/21 08:15 09/22/21 08:19 Ondansetron 4 Mg/2 Ml Vial IVP 4 mg Q6HR PRN Administration Nausea And Vomiting Zinc Sulfate 220 mg 09/20/21 17:15 09/22/21 07:11 Zinc Sulfate 220 Mg Cap PO 220 mg DAILY SARAHI Administration Intake and Output 09/21/21 09/22/21 09/22/21 22:59 06:59 14:59 Output Total 600 Balance -600 Output: Urine 600 Other: Voiding Method Bedside Commode # Bowel Movements 2 09/22/21 06:05 09/22/21 06:05 Assessment and Plan Assessment: Assessment #1 acute on chronic hypoxic respiratory failure #2 COVID-19 infection #3 history of DVT/PE #4 cardiac arrhythmia in the term of paroxysmal atrial fibrillation #5 multiple comorbid conditions Plan #1 the patient is already on oral anticoagulation we'll continue that #2 consider starting her on beta karsten with Toprol-XL #3 obtain an echocardiogram was Doppler #4 follow-up with the patient
--- NOTE | 2021-09-22 14:29 | P.PN ---
Subjective Progress Note Date: 09/22/21 Principal diagnosis: Coronavirus pneumonia. This is a 71-year-old female patient who follows with Dr. Gilmore as her primary care provider. She has a history of rheumatoid arthritis, previous chronic tobacco dependence, mild COPD, DVT of the left lower extremity and history of subacute massive pulmonary embolism maintained on lifelong anticoagulation in the form of Eliquis. She also has chronic hypoxemic respiratory failure secondary to interstitial lung disease most likely related to her rheumatoid arthritis. She was last seen in our office in February 2020. Back then she had been on Xeljanz and Eliquis. She was brought into the emergency room today with hypoxemia with O2 saturations in the 60s and 70s according to the patient's . She is normally on oxygen at 2 L at home. She is seen today in consultation in the emergency room. She is currently sitting up in the stretcher. She has somewhat altered. Awake and alert but confused as to why she's even here in the hospital. She is currently on 15 L high flow nasal cannula to maintain O2 saturations in the low 90s. Chest x-ray shows diffuse mild infiltrate present bilaterally. CT angiogram ruled out pulmonary embolism. She does have evidence of end-stage lung disease and evidence of pulmonary fibr osis. Subcarinal adenopathy suspected. This is measuring 2.7 x 1.7 x 3.4 cm. Paraesophageal hiatal hernia. White count 7.7. Hemoglobin 14.1. Platelets 297. Lymphocytes 0.2. D-dimer 4.31. Sodium 136. Potassium 4.4. Creatinine 1.05. Glucose 184. LDH 1218. C-reactive protein 18.6. Her BMP 1090. Troponin 0.031. Rizo virus by PCR positive. She was initiated on Decadron and Lovenox. Progress note dated 09/21/2021. 71-year-old female seen yesterday in consultation. The patient has a history of rheumatoid arthritis, chronic tobacco use, COPD, DVT, and subacute massive pulmonary embolism, maintained on lifelong anticoagulation. The patient was admitted with a diagnosis of acute on chronic hypoxemic respiratory failure secondary to acute coronavirus pneumonia. The patient apparently has been previously vaccinated. The patient also has a history of rheumatoid arthritis as mentioned above. Currently, the patient's on 15 L high flow nasal O2. Typically, she is on 2 L at home. She's not a practically good historian and was very difficult getting any history from her. Today's laboratory data includes a white count of 4.3, hemoglobin 11.7, hematocrit 38.1, and platelet count of 272,000. Sodium 135, potassium 4.1, chlorides 102, CO2 18, anion gap is 15, BUN 15.1, and creatinine 0.8. Progress note dated 09/22/2021. 71-year-old female, seen in consultation 2 days ago. The patient has a history of rheumatoid arthritis, chronic tobacco use and COPD, deep venous thrombosis, and subacute massive pulmonary embolism, maintained on lifelong blood thinners. The patient was admitted with a diagnosis of acute hypoxemic respiratory failure secondary to coronavirus associated pneumonia. The patient has been on both a 15 they're high flow nasal cannula, and a nonrebreather mask, but apparently prefers a nonrebreather mask, as the cannula dries out her nose. She is resting comfortably in the bed. She's not receiving any IV fluids. White count 14.5, hemoglobin 11, hematocrit 36.6, and platelet count 303,000. Sodium 139, potassium 3.6, chlorides 107, CO2 18, anion gap 14, BUN 22, creatinine 0.8. Calcium 8.0. Blood cultures are negative. Objective - Vital Signs Vital signs: Vital Signs Temp 98.7 F 09/22/21 10:00 Pulse 71 09/22/21 10:00 Resp 16 09/22/21 10:00 BP 161/93 09/22/21 10:00 Pulse Ox 96 09/22/21 10:00 Intake & Output 09/21/21 09/22/21 09/22/21 18:59 06:59 18:59 Output Total 600 Balance -600 Output: Urine 600 Other: Voiding Method Bedside Commode # Bowel Movements 2 - Exam No acute distress, oriented 3. Currently on nonrebreather mask. She will use a 15 L high flow nasal cannula from time to time. HEENT examination is grossly unremarkable. Neck supple. Full range of motion. No adenopathy thyromegaly or neck vein distention. Cardiovascular examination reveals regular rhythm rate. S1-S2 normal. No S3 or S4. No discernible murmur noted. Heart rate 71 bpm. Heart sounds are distant. Lungs reveal bibasilar rhonchi and crackles. Breath sounds equal. There are no wheezes. Abdomen soft bowel sounds are heard. No masses or tenderness. Extremities are intact. No cyanosis clubbing or edema. Skin is without rash or lesion. Neurologic examination is brief but nonfocal. - Labs CBC & Chem 7: 09/22/21 06:05 09/22/21 06:05 Labs: Abnormal Lab Results - Last 24 Hours (Table) 09/22/21 09/22/21 Range/Units 06:05 06:05 WBC 14.54 H (4.50-10.00) X 10*3/uL RBC 3.99 L (4.10-5.20) X 10*6/uL Hgb 11.0 L (12.0-15.0) g/dL Hct 36.6 L (37.2-46.3) % MCHC 30.1 L (32.0-37.0) g/dL RDW 14.6 H (11.5-14.5) % Immature Gran # 0.08 H (0.00-0.04) X 10*3/uL Neutrophils # 13.49 H (1.80-7.70) X 10*3/uL Lymphocytes # 0.44 L (0.90-5.00) X 10*3/uL Eosinophils # 0 L (0.04-0.35) X 10*3/uL Carbon Dioxide 18.4 L (20.0-27.5) mmol/L BUN/Creatinine Ratio 28.57 H (12.00-20.00) Ratio Glucose 145 H (70-110) mg/dL Calcium 8.0 L (8.7-10.3) mg/dL Microbiology - Last 24 Hours (Table) 09/20/21 14:57 Blood Culture - Preliminary Blood No Growth after 24 hours 09/20/21 14:47 Blood Culture - Preliminary Blood No Growth after 24 hours Assessment and Plan Assessment: Acute on chronic hypoxemic respiratory failure secondary to coronavirus associated pneumonia. Chronic hypoxemic respiratory failure, secondary to interstitial lung disease, with possible rheumatoid arthritis associated pulmonary fibrosis. History of rheumatoid arthritis. History of subacute massive pulmonary embolism, on lifelong anticoagulation. History of left lower extremity DVT. History of COPD, secondary to chronic tobacco dependence. Plan: Plan dated 09/21/2021. The patient remains on an albuterol inhaler, vitamin C, vitamin D3, Decadron, zinc, and Eliquis chronically. The patient is currently on 15 L high flow nasal O2. She does not appear to be overwhelmingly short of breath despite her high oxygen requirements. Saturations are 92%. The rest of her vital signs are stable including a heart rate of 79 bpm, and a respiratory rate of between 16-18 breaths per minute. We will continue to follow make recommendations where appropriate. Prognosis is guarded. We had considered giving the patient LAILA, but we are concerned because her pro-calcitonin level was 0.96. Plan dated 09/22/2021. The patient remains on appropriate medications albuterol inhaler, vitamin C, vitamin D3, Decadron, zinc, and Eliquis, chronically. The patient is currently on a nonrebreather mask. She will sometimes using 15 L high flow nasal cannula, but that appears to irritate her nasal mucosa. She appears relatively comfortable. She never really complaining about being short of breath. We will continue to follow make recommendations where appropriate. She was not given LAILA, because of an elevated pro calcitonin level. Prognosis is guarded. We will continue to follow. Time with Patient: Less than 30
[2021-09-23] MEDS ORDERED: DILTIAZEM 5 MG/ML 5 ML VIAL IVP STA (00:52)
[2021-09-23] MEDS ORDERED: DILTIAZEM 125 MG in SODIUM CHLORIDE 0.9% 100 ML IV SCH (01:00)
--- NOTE | 2021-09-23 01:15 | P.PN ---
Subjective Progress Note Date: 09/21/21 Patient is a 71-year-old female with a known history of rheumatoid arthritis, pulmonary fibrosis, COPD and previous history of smoking, DVT of the left lower extremity and history of subacute massive pulmonary embolism maintained on lifelong anticoagulation with Eliquis and chronic hypoxic respiratory failure on home oxygen at 2 L due to interstitial lung disease related to rheumatoid arthritis presents to ER with complaints of hypoxia. Apparently patient was found to be hypoxic with pulse ox in the 60s to 70s according to her . Patient has been having worsening shortness of breath for the past few days. Denies any fever or chills. Cough without any sputum production. No nausea vomiting abdominal pain or diarrhea. Patient is vaccinated against COVID-19 with 2 doses. Not received a booster dose yet. Chest x-ray showed diffuse mild infiltrate present bilaterally. Correlate for pulmonary edema or atypical pneumonia. This could be superimposed some chronic changes. Follow-up is recommended. Laboratory data showed D-dimer level 4.[address] angiogram was done which showed no acute pulmonary embolism. End-stage lung disease. Subcarinal adenopathy suspected. Paraesophageal hiatal hernia. Extensive centrilobular and paraseptal emphysematous change. Interstitial changes are also present. Suspected basilar honeycombing consistent with end-stage lung disease. Laboratory showed no wheezing 7.7 hemoglobin 14.1 and platelets 297. Lymphocytes 0.2 D-dimer is 4.31 Sodium 136 potassium 4.4 chloride 104 bicarb is 20 BUN 19 and creatinine 1.05 and blood sugar is 184 lactic acid 4.1 AST 44 ALT 18 alk phos 69 LDH is 1218 troponin 0 0.031 and CRP 18.6 proBNP 1090 and coronavirus PCR detected 09/21/2021 Patient is currently in the surgical unit. Awake alert oriented x3. Admit to hospital due to acute hypoxic rest mylene failure secondary to COVID-19 pneumonia. Patient does have rheumatoid arthritis and chronic interstitial lung disease secondary to above Patient is currently requiring 15 L high flow oxygen via nasal cannula. Does have minimal cough. No chest pain. Patient has been afebrile. No headache or dizziness or lightheadedness. Tolerating oral diet slowly. Laboratory data showed WBC 4.3 hemoglobin 11.7 and platelets 272 Sodium 135 potassium 4.1 chloride 102 bicarb is 18.2 BUN 15.1 and creatinine 0.8 and calcium 8.0 Patient is being continued on dexamethasone, apixaban and multivitamins. Pulmonary is on board. Current medications reviewed. Objective - Vital Signs Vital signs: Vital Signs Temp 97.8 F 09/21/21 18:00 Pulse 78 09/21/21 18:00 Resp 15 09/21/21 18:00 BP 124/77 09/21/21 18:00 Pulse Ox 90 L 09/21/21 18:00 Intake & Output 09/21/21 09/21/21 09/22/21 06:59 18:59 06:59 Intake Total 480 Balance 480 Intake: Oral 480 Other: Voiding Method Bedside Commode # Voids 1 - Exam PHYSICAL EXAMINATION: Patient is lying in the bed comfortably, no acute distress, awake alert and oriented.. HEENT: Normocephalic. Neck is supple. Pupils reactive. Nostrils clear. Oral cavity is moist. Neck reveals no JVD, carotid bruits, or thyromegaly. CHEST EXAMINATION: Trachea is central. Symmetrical expansion.Bilateral fine crackles and diminished air sounds. No wheezing. Nonlabored breathing.. CARDIAC: Normal S1, S2 with no gallops. No murmurs ABDOMEN: Soft. Bowel sounds normal. No organomegaly. No abdominal bruits. Extremities: reveal no edema. No clubbing or cyanosis Neurologically awake, alert, oriented x3 with well-coordinated movements. Mild cognitive impairment. No focal deficits noted Skin: No rash or skin lesions. Psychiatric: Cooperative. Nonsuicidal Musculoskeletal: No joint swelling or deformity. Normal range of motion. - Labs CBC & Chem 7: 09/22/21 06:05 09/22/21 06:05 Labs: Abnormal Lab Results - Last 24 Hours (Table) 09/20/21 09/20/21 09/20/21 Range/Units 14:01 14:01 14:50 WBC (4.50-10.00) X 10*3/uL Hgb (12.0-15.0) g/dL MCHC (32.0-37.0) g/dL RDW (11.5-14.5) % Lymphocytes # (0.90-5.00) X 10*3/uL Eosinophils # (0.04-0.35) X 10*3/uL Carbon Dioxide (20.0-27.5) mmol/L Glucose (70-110) mg/dL Plasma Lactic Acid Reyes 4.1 H* (0.7-2.0) mmol/L Calcium (8.7-10.3) mg/dL Ferritin 342.0 H (10.0-291.0) ng/mL Procalcitonin 0.96 H (0.02-0.09) ng/mL 09/20/21 09/21/21 09/21/21 Range/Units 21:25 05:47 05:47 WBC 4.30 L (4.50-10.00) X 10*3/uL Hgb 11.7 L (12.0-15.0) g/dL MCHC 30.7 L (32.0-37.0) g/dL RDW 14.7 H (11.5-14.5) % Lymphocytes # 0.48 L (0.90-5.00) X 10*3/uL Eosinophils # 0 L (0.04-0.35) X 10*3/uL Carbon Dioxide 18.2 L (20.0-27.5) mmol/L Glucose 159 H (70-110) mg/dL Plasma Lactic Acid Reyes 2.5 H* (0.7-2.0) mmol/L Calcium 8.0 L (8.7-10.3) mg/dL Ferritin (10.0-291.0) ng/mL Procalcitonin (0.02-0.09) ng/mL Microbiology - Last 24 Hours (Table) 09/20/21 14:57 Blood Culture - Preliminary Blood No Growth after 24 hours 09/20/21 14:47 Blood Culture - Preliminary Blood No Growth after 24 hours Assessment and Plan Assessment: Acute on chronic hypoxemic respiratory failure secondary to COVID-19 pneumonia. Patient is vaccinated with 2 doses. Awaiting both discharge. Currently requiring 15 L high flow oxygen via nasal cannula. Chronic hypoxic respiratory failure secondary to interstitial lung disease due to rheumatoid arthritis on 2 L oxygen via nasal cannula. 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 with Eliquis History of DVT left lower extremity COPD Prior history of smoking Plan: Patient will be continued on oxygen supplementation and titrate down FiO2 as tolerated. Patient was started on dexamethasone and continue with Eliquis. Continue with multivitamin supplementation. Pulmonary is on board and is considering baricitinib. Prognosis guarded. Continue to follow closely. Time with Patient: Greater than 30
--- NOTE | 2021-09-23 01:18 | P.PN ---
Subjective Progress Note Date: 09/22/21 Patient is a 71-year-old female with a known history of rheumatoid arthritis, pulmonary fibrosis, COPD and previous history of smoking, DVT of the left lower extremity and history of subacute massive pulmonary embolism maintained on lifelong anticoagulation with Eliquis and chronic hypoxic respiratory failure on home oxygen at 2 L due to interstitial lung disease related to rheumatoid arthritis presents to ER with complaints of hypoxia. Apparently patient was found to be hypoxic with pulse ox in the 60s to 70s according to her . Patient has been having worsening shortness of breath for the past few days. Denies any fever or chills. Cough without any sputum production. No nausea vomiting abdominal pain or diarrhea. Patient is vaccinated against COVID-19 with 2 doses. Not received a booster dose yet. Chest x-ray showed diffuse mild infiltrate present bilaterally. Correlate for pulmonary edema or atypical pneumonia. This could be superimposed some chronic changes. Follow-up is recommended. Laboratory data showed D-dimer level 4.[address] angiogram was done which showed no acute pulmonary embolism. End-stage lung disease. Subcarinal adenopathy suspected. Paraesophageal hiatal hernia. Extensive centrilobular and paraseptal emphysematous change. Interstitial changes are also present. Suspected basilar honeycombing consistent with end-stage lung disease. Laboratory showed no wheezing 7.7 hemoglobin 14.1 and platelets 297. Lymphocytes 0.2 D-dimer is 4.31 Sodium 136 potassium 4.4 chloride 104 bicarb is 20 BUN 19 and creatinine 1.05 and blood sugar is 184 lactic acid 4.1 AST 44 ALT 18 alk phos 69 LDH is 1218 troponin 0 0.031 and CRP 18.6 proBNP 1090 and coronavirus PCR detected 09/21/2021 Patient is currently in the surgical unit. Awake alert oriented x3. Admit to hospital due to acute hypoxic rest mylene failure secondary to COVID-19 pneumonia. Patient does have rheumatoid arthritis and chronic interstitial lung disease secondary to above Patient is currently requiring 15 L high flow oxygen via nasal cannula. Does have minimal cough. No chest pain. Patient has been afebrile. No headache or dizziness or lightheadedness. Tolerating oral diet slowly. Laboratory data showed WBC 4.3 hemoglobin 11.7 and platelets 272 Sodium 135 potassium 4.1 chloride 102 bicarb is 18.2 BUN 15.1 and creatinine 0.8 and calcium 8.0 Patient is being continued on dexamethasone, apixaban and multivitamins. Pulmonary is on board. 09/22/2021 Patient is currently resting in the bed. Still requiring high flow oxygen 50 L via nasal cannula. Patient was admitted to the hospital due to acute on chronic hypoxic respiratory failure secondary to COVID-19 pneumonia. Patient has been afebrile. No headache or dizziness or lightheadedness. No fever no chills. No cough or sputum production. No chest pain. Patient went into atrial fibrillation with rapid A. Cardiology was consulted. Patient was started on Cardizem drip. Laboratory data showed WBC 14.54 hemoglobin 11.0 and platelets 303 sodium 139 potassium 3.6 chloride 107 bicarb is 18.4 BUN 22.4 and creatinine 0.8 Patient is being continued dexamethasone, Eliquis and multivitamins. Current medications reviewed. Objective - Vital Signs Vital signs: Vital Signs Temp 98.7 F 09/22/21 10:00 Pulse 71 09/22/21 10:00 Resp 16 09/22/21 10:00 BP 161/93 09/22/21 10:00 Pulse Ox 96 09/22/21 10:00 Intake & Output 09/21/21 09/22/21 09/22/21 18:59 06:59 18:59 Output Total 600 Balance -600 Output: Urine 600 Other: Voiding Method Bedside Commode # Bowel Movements 2 - Exam PHYSICAL EXAMINATION: Patient is lying in the bed comfortably, no acute distress, awake alert and oriented.. HEENT: Normocephalic. Neck is supple. Pupils reactive. Nostrils clear. Oral cavity is moist. Neck reveals no JVD, carotid bruits, or thyromegaly. CHEST EXAMINATION: Trachea is central. Symmetrical expansion.Bilateral fine crackles and diminished air sounds. No wheezing. Nonlabored breathing.. CARDIAC: Normal S1, S2 with no gallops. No murmurs ABDOMEN: Soft. Bowel sounds normal. No organomegaly. No abdominal bruits. Extremities: reveal no edema. No clubbing or cyanosis Neurologically awake, alert, oriented x3 with well-coordinated movements. Mild cognitive impairment. No focal deficits noted Skin: No rash or skin lesions. Psychiatric: Cooperative. Nonsuicidal Musculoskeletal: No joint swelling or deformity. Normal range of motion. - Labs CBC & Chem 7: 09/22/21 06:05 09/22/21 06:05 Labs: Abnormal Lab Results - Last 24 Hours (Table) 09/22/21 09/22/21 Range/Units 06:05 06:05 WBC 14.54 H (4.50-10.00) X 10*3/uL RBC 3.99 L (4.10-5.20) X 10*6/uL Hgb 11.0 L (12.0-15.0) g/dL Hct 36.6 L (37.2-46.3) % MCHC 30.1 L (32.0-37.0) g/dL RDW 14.6 H (11.5-14.5) % Immature Gran # 0.08 H (0.00-0.04) X 10*3/uL Neutrophils # 13.49 H (1.80-7.70) X 10*3/uL Lymphocytes # 0.44 L (0.90-5.00) X 10*3/uL Eosinophils # 0 L (0.04-0.35) X 10*3/uL Carbon Dioxide 18.4 L (20.0-27.5) mmol/L BUN/Creatinine Ratio 28.57 H (12.00-20.00) Ratio Glucose 145 H (70-110) mg/dL Calcium 8.0 L (8.7-10.3) mg/dL Microbiology - Last 24 Hours (Table) 09/20/21 14:57 Blood Culture - Preliminary Blood No Growth after 24 hours 09/20/21 14:47 Blood Culture - Preliminary Blood No Growth after 24 hours Assessment and Plan Assessment: Acute on chronic hypoxemic respiratory failure secondary to COVID-19 pneumonia. Patient is vaccinated with 2 doses. Awaiting both discharge. Currently requiring 15 L high flow oxygen via nasal cannula. Atrial fibrillation new onset. Chronic hypoxic respiratory failure secondary to interstitial lung disease due to rheumatoid arthritis on 2 L oxygen via nasal cannula. 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 with Eliquis History of DVT left lower extremity COPD Prior history of smoking Plan: Patient will be continued on oxygen supplementation and titrate down FiO2 as tolerated. Patient was started on dexamethasone and continue with Eliquis. Patient was started on Cardizem drip due to new onset atrial fibrillation with rapid ventricular rate. Cardiology was consulted.. Continue with multivitamin supplementation. Pulmonary is on board and is considering baricitinib. Prognosis guarded. Continue to follow closely. Time with Patient: Greater than 30
--- NOTE | 2021-09-23 07:26 | XR ---
EXAMINATION TYPE: XR chest 1V portable DATE OF EXAM: 09/23/2021 Comparison: 09/20/2021 Clinical History: 71-year-old female CoVID pneumonia Findings: Heart normal size. Atherosclerotic arch calcifications. Interstitial infiltrates and specially in the periphery of the mid and lower lungs persist. Interstitial changes in the upper lungs may be slightl y improved. No pleural effusion. Impression: Continued peripheral interstitial COVID infiltrates in the mid and lower lungs. Aeration in the upper lungs may be slightly improved.
[2021-09-23] MEDS: ALBUTEROL HFA INHALER INHALATION PRN (07:48)
[2021-09-23] MEDS: APIXABAN 5 MG TAB PO SCH ×2 (09:05→21:05)
[2021-09-23] MEDS: CHOLECALCIFEROL 125 MCG (5000 IU) TABLET PO SCH (09:05)
[2021-09-23] MEDS: ASCORBIC ACID 500 MG TAB PO SCH (09:05)
[2021-09-23] MEDS: METOPROLOL SUCCINATE (ER) 25 MG TAB.ER.24H PO SCH (09:05)
[2021-09-23] MEDS: DEXAMETHASONE SOD PHOSPHATE 10 MG/ML 1 ML VIAL IVP SCH (09:06)
[2021-09-23] MEDS: ZINC SULFATE 220 MG CAP PO SCH (09:06)
[2021-09-23 10:56] LABS: African American GFR (CKD) >90 (>60 ml/min/1.73 sqM); Anion Gap 6 mmol/L; Blood Urea Nitrogen 14 mg/dL (7-17); C Reactive Protein 3.7 mg/dL (<1.0); Calcium 8.1 mg/dL (8.4-10.2); Carbon Dioxide 25 mmol/L (22-30); Chloride 106 mmol/L (98-107); Glucose 137 mg/dL (74-99); LDH 1058 U/L (313-618); Non-African American GFR(CKD) 80 (>60 ml/min/1.73 sqM); Potassium 3.9 mmol/L (3.5-5.1); Sodium 137 mmol/L (137-145)
[2021-09-23 11:00] LABS: Basophils % (A) 0 %; Eosinophils % (A) 0 %; Hypochromasia Marked; Lymphocytes # (A) 0.4 k/uL (1.0-4.8); Lymphocytes % (A) 4 %; MCV 93.7 fL (80.0-100.0); Mean Platelet Volume 8.2; Monocytes # (A) 0.4 k/uL (0-1.0); Monocytes % (A) 4 %; Neutrophils # (A) 9.1 k/uL (1.3-7.7); Neutrophils % (A) 90 %; Platelet Count 281 k/uL (150-450); RBC 3.74 m/uL (3.80-5.40); RDW 14.8 % (11.5-15.5); WBC 10.1 k/uL (3.8-10.6)
[2021-09-23 11:15] LABS: HGB 10.8 gm/dL (11.4-16.0)
[2021-09-23 14:14] LABS: T4, Free (Free Thyroxine) 1.41 ng/dL (0.78-2.19)
--- NOTE | 2021-09-23 14:21 | P.PN ---
Subjective Progress Note Date: 09/23/21 CHIEF COMPLAINT: SOB HISTORY OF PRESENT ILLNESS: The patient is a pleasant 71-year-old female patient with a past medical history significant for chronic hypoxic respiratory failure and also history of pulmonary fibrosis as well as chronic obstructive pulmonary disease and also history of DVT/PE who requested to see on the fourth floor for further evaluation off cardiac arrhythmia/atrial fibrillation. The patient is somewhat is a poor historian and she is confused as well. She presented to the hospital complaining of shortness of breath and she was hypoxic. Her oxygen saturation was in the 70s when she was evaluated in the emergency department. Denies any cough or sputum or fever or chills. The patient was tested positive for COVID- 19 infection and currently she is on isolation. She does not recall having any symptoms of chest pain or chest discomfort or dizziness or lightheadedness or any presyncope or syncope. We requested to see the patient for further evaluation of atrial fibrillation. The A. fib was noted on the monitor but the time an EKG was performed she was in sinus mechanism. So overall and no documentation of atrial fibrillation by 12 please EKG. Currently the patient is in sinus rhythm and sinus tachycardia and she is also slightly hypertensive. No history of paroxysmal atrial fibrillation. She currently on oral anticoagulation for DVT/PE. She underwent a workup including sodium of 136 and potassium of 4.4 and creatinine of 1.05. Her EKG showed sinus mechanism without any significant ST or T-wave abnormalities. At this point I'm going to start the patient on Toprol-XL at 25 mg by mouth daily. We will obtain an echocardiogram to evaluate the left ventricle systolic function. We'll continue following up with her. 09/23/2021 Patient remains hospitalized on 3S. Telemetry reveals sinus mechanism. She denies chest pain or pressure. She is on high flow nasal cannula. Blood pressure stable. She is anticoagulated with Eliquis. PHYSICAL EXAM: Thorough physical exam not completed secondary to limited evaluation/examination and due to Covid19 ASSESSMENT: Covid 19 New-onset paroxysmal atrial fibrillation with RVR, currently maintaining sinus mechanism Acute on chronic hypoxic respiratory failure Pulmonary fibrosis COPD History of DVT/PE PLAN: Obtain 2-D echo to assess cardiac structure and function Obtain TSH Continue Eliquis Continue metoprolol Continue telemetry monitoring Further recommendations pending patient course Nurse practitioner note has been reviewed by physician. Signing provider agrees with the documented findings, assessment, and plan of care. Objective - Vital Signs Vital signs: Vital Signs Temp 97.0 F L 09/23/21 12:00 Pulse 58 L 09/23/21 12:00 Resp 18 09/23/21 12:00 BP 133/72 09/23/21 12:00 Pulse Ox 96 09/23/21 12:00 Intake & Output 09/22/21 09/23/21 09/23/21 18:59 06:59 18:59 Intake Total 900 Balance 900 Intake: Oral 900 Other: Voiding Method Bedpan # Voids 3 - Labs CBC & Chem 7: 09/23/21 10:03 09/23/21 10:03 Labs: Abnormal Lab Results - Last 24 Hours (Table) 09/23/21 09/23/21 09/23/21 Range/Units 10:03 10:03 10:03 RBC 3.74 L (3.80-5.40) m/uL Hgb 10.8 L D (11.4-16.0) gm/dL Neutrophils # 9.1 H (1.3-7.7) k/uL Lymphocytes # 0.4 L (1.0-4.8) k/uL Glucose 137 H (74-99) mg/dL Calcium 8.1 L (8.4-10.2) mg/dL Lactate Dehydrogenase 1058 H (313-618) U/L C-Reactive Protein 3.7 H (<1.0) mg/dL TSH 0.224 L (0.465-4.680) mIU/L Microbiology - Last 24 Hours (Table) 09/20/21 14:57 Blood Culture - Preliminary Blood No Growth after 48 hours 09/20/21 14:47 Blood Culture - Preliminary Blood No Growth after 48 hours
--- NOTE | 2021-09-23 14:52 | P.PN ---
Subjective Progress Note Date: 09/23/21 This is a 71-year-old female admitted with acute Covid pneumonia, acute on chronic hypoxic respiratory failure, new onset atrial fibrillation and multiple other medical issues. Patient developed atrial fibrillation with RVR last night transferred to telemetry and converted back to sinus rhythm prior to initiation of Cardizem drip. Anticoagulated with Eliquis. Denies chest pain, palpitations or chest pressure. Maintained on covid cocktail. Continues on 15 L high flow nasal cannula to maintain O2 sats in the 90s. Afebrile. Labs pending. Objective - Vital Signs Vital signs: Vital Signs Temp 97.0 F L 09/23/21 12:00 Pulse 58 L 09/23/21 12:00 Resp 18 09/23/21 12:00 BP 133/72 09/23/21 12:00 Pulse Ox 96 09/23/21 12:00 Intake & Output 09/22/21 09/23/21 09/23/21 18:59 06:59 18:59 Intake Total 900 Output Total 425 Balance 475 Intake: Oral 900 Output: Urine 425 Other: Voiding Method Bedpan # Voids 3 - Exam PHYSICAL EXAMINATION: Patient is lying in the bed comfortably, no acute distress, awake alert and oriented. HEENT: Normocephalic. Neck is supple. Pupils reactive. Wearing mask. Neck: Supple, no JVD CHEST EXAMINATION: Nonlabored, Symmetrical expansion.Bilateral fine crackles and diminished air sounds. No wheezing. Loose congested cough CARDIAC: Normal S1, S2 with no gallops. No murmurs. ABDOMEN: Soft. Bowel sounds normal. No organomegaly. No abdominal bruits. +BS. Extremities: no edema. No clubbing or cyanosis. Neurologically awake, alert, oriented x3 with well-coordinated movements. No focal deficits noted Skin: No rash, warm and dry - Labs CBC & Chem 7: 09/23/21 10:03 09/23/21 10:03 Labs: Abnormal Lab Results - Last 24 Hours (Table) 09/23/21 09/23/21 09/23/21 Range/Units 10:03 10:03 10:03 RBC 3.74 L (3.80-5.40) m/uL Hgb 10.8 L D (11.4-16.0) gm/dL Neutrophils # 9.1 H (1.3-7.7) k/uL Lymphocytes # 0.4 L (1.0-4.8) k/uL Glucose 137 H (74-99) mg/dL Calcium 8.1 L (8.4-10.2) mg/dL Lactate Dehydrogenase 1058 H (313-618) U/L C-Reactive Protein 3.7 H (<1.0) mg/dL TSH 0.224 L (0.465-4.680) mIU/L Microbiology - Last 24 Hours (Table) 09/20/21 14:57 Blood Culture - Preliminary Blood No Growth after 48 hours 09/20/21 14:47 Blood Culture - Preliminary Blood No Growth after 48 hours Assessment and Plan Assessment: Acute on chronic hypoxemic respiratory failure secondary to COVID-19 pneumonia. Patient is vaccinated with 2 doses. Currently requiring 15 L high flow oxygen via nasal cannula. Atrial fibrillation new onset. Chronic hypoxic respiratory failure secondary to interstitial lung disease due to rheumatoid arthritis on 2 L oxygen via nasal cannula. 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 Maintain Covid Cocktail, follow closely with pulmonary. Antiarrhythmics as per cardiology. Prognosis guarded given multiple complex medical issues. The impression and plan of care has been dictated as directed. : I performed a history and examination of this patient, discussed the same with the dictator. I agree with the dictator's note ,documented as a scribe. Any additional findings or plans will be noted.
--- NOTE | 2021-09-23 15:00 | P.PN ---
Subjective Progress Note Date: 09/23/21 09/23/2021, seeing this patient for a follow-up. The patient is a case of pulmonary fibrosis secondary to underlying rheumatoid arthritis and the patient has chronic interstitial lung disease/fibrosis involving the lung bases. The patient also has had a previous history of masses/submassive unprovoked p ulmonary embolism requiring catheter directed thrombolytic therapy and the patient has been on long-term and coagulation since. The patient is also known to have COPD, previous history of pulmonary embolism, produces 7 left lower extremity DVT for which she has been maintained on long-term medical condition with Eliquis. In terms of her rheumatoid arthritis, due to financial problems, she has been on a combination of Humira and Xaljenz pparently both of these medications have been discontinued.. The patient is currently hospitalized for an acute hypoxic respiratory failure secondary to COVID 19 related infection with interval worsening in her oxygenation. She is currently on Decadron. S he'll phone and to coagulation with Lovenox. The patient had negative blood cultures. Blood work is essentially stable with a normal renal function. The patient remains on a 10 L oxygen by nasal cannula in addition to the 100% nonrebreather facemask on her current pulse ox on a 96%. She is afebrile. The white cell count is at 10.1 with hemoglobin of 10.8 and a platelet count of 281. BUN is at 14 with a creatinine of 0.7. Sodium level is at 137 . The TSH is at 0.224 with a free T4 of 1.4. LDH level was 1058 with a CRP level of 3.7. Rest of the blood work and electrodes are all within normal limits. the BUN is a 40 with a creatinine of 0.76. Objective - Vital Signs Vital signs: Vital Signs Temp 97.0 F L 09/23/21 12:00 Pulse 58 L 09/23/21 12:00 Resp 18 09/23/21 12:00 BP 133/72 09/23/21 12:00 Pulse Ox 96 09/23/21 12:00 Intake & Output 09/22/21 09/23/21 09/23/21 18:59 06:59 18:59 Intake Total 900 Output Total 425 Balance 475 Intake: Oral 900 Output: Urine 425 Other: Voiding Method Bedpan # Voids 3 - Exam No acute distress, oriented 3. Currently on nonrebreather mask. She will use a 10 L nasal cannula without with 100% nonrebreather facemask. HEENT examination is grossly unremarkable. Neck supple. Full range of motion. No adenopathy thyromegaly or neck vein di stention. Cardiovascular examination reveals regular rhythm rate. S1-S2 normal. No S3 or S4. No discernible murmur noted. Heart rate 71 bpm. Heart sounds are distant. Lungs reveal bibasilar rhonchi and crackles. The patient has coarse crackles in lung bases bilaterally especially in the lower lung uhrt bilaterally. Breath sounds equal. There are no wheezes. Abdomen soft bowel sounds are heard. No masses or tenderness. Extremities are intact. No cyanosis clubbing or edema. The patient has joint deformities related to rheumatoid arthritis. Skin is without rash or lesion. Neurologic examination is brief but nonfocal. - Labs CBC & Chem 7: 09/23/21 10:03 09/23/21 10:03 Labs: Abnormal Lab Results - Last 24 Hours (Table) 09/23/21 09/23/21 09/23/21 Range/Units 10:03 10:03 10:03 RBC 3.74 L (3.80-5.40) m/uL Hgb 10.8 L D (11.4-16.0) gm/dL Neutrophils # 9.1 H (1.3-7.7) k/uL Lymphocytes # 0.4 L (1.0-4.8) k/uL Glucose 137 H (74-99) mg/dL Calcium 8.1 L (8.4-10.2) mg/dL Lactate Dehydrogenase 1058 H (313-618) U/L C-Reactive Protein 3.7 H (<1.0) mg/dL TSH 0.224 L (0.465-4.680) mIU/L Microbiology - Last 24 Hours (Table) 09/20/21 14:57 Blood Culture - Preliminary Blood No Growth after 48 hours 09/20/21 14:47 Blood Culture - Preliminary Blood No Growth after 48 hours Assessment and Plan Plan: Acute on chronic hypoxemic respiratory failure secondary to coronavirus associated pneumonia. The patient has evidence of chronic interstitial lung disease and there has been interval worsening in her oxygenation. The COVID 19 related infection/pneumonia. As such, her hypoxic respiratory failure is multifactorial and a decompensating fact that is the acute community related pneumonia. Note that the patient is also been immunosuppressed with a combination of Humira and Xalgenz on outpatient basis. Currently on Decadron. Currently on anticoagulation with Lovenox. Chronic hypoxemic respiratory failure, secondary to interstitial lung disease, with possible rheumatoid arthritis associated pulmonary fibrosis. History of rheumatoid arthritis. History of subacute massive pulmonary embolism, on lifelong anticoagulation. The patient to maintain on Eliquis on outpatient basis History of left lower extremity DVT. History of COPD, secondary to chronic tobacco dependence. Plan: Continue Decadron 6 mg IV every 24 hours Continue to coagulation with Eliquis Monitor oxygenation gradually wean off the oxygen flow to maintain a saturation above 90% Chest x-ray from today showing peripheral interstitial pulmonary infiltrates consistent with community related infection. Aeration in the upper lobes have improved Patient is a full CODE STATUS Inflammatory markers show some improvement in the LDH. CRP level is low. D- dimer is at 4.31 We'll continue to follow
[2021-09-23 20:40] LABS: Glucose,Whole Blood 166 mg/dL (75-99)
[2021-09-23] MEDS: INSULIN ASPART (NovoLOG) 100 UNIT/ML VIAL SQ SCH (21:05)
[2021-09-24 06:25] LABS: Glucose,Whole Blood 133 mg/dL (75-99)
[2021-09-24] MEDS: INSULIN ASPART (NovoLOG) 100 UNIT/ML VIAL SQ SCH ×4 (06:44→20:16)
[2021-09-24] MEDS: ASCORBIC ACID 500 MG TAB PO SCH (09:19)
[2021-09-24] MEDS: APIXABAN 5 MG TAB PO SCH ×2 (09:19→20:16)
[2021-09-24] MEDS: CHOLECALCIFEROL 125 MCG (5000 IU) TABLET PO SCH (09:20)
[2021-09-24] MEDS: ZINC SULFATE 220 MG CAP PO SCH (09:20)
[2021-09-24] MEDS: METOPROLOL SUCCINATE (ER) 25 MG TAB.ER.24H PO SCH (09:20)
[2021-09-24] MEDS: DEXAMETHASONE SOD PHOSPHATE 10 MG/ML 1 ML VIAL IVP SCH (09:20)
--- NOTE | 2021-09-24 11:10 | ECHOF ---
Referral Reason:Lv function, afib MEASUREMENTS -------- HEIGHT: 157.5 cm WEIGHT: 68.0 kg BP: RVIDd: 3.2 cm (< 3.3) IVSd: 1.1 cm (0.6 - 1.1) LVIDd: 3.7 cm (3.9 - 5.3) LVPWd: 0.9 cm (0.6 - 1.1) IVSs: 1.4 cm LVIDs: 3.7 cm LVPWs: 1.4 cm LA Diam: 3.0 cm (2.7 - 3.8) RAP: 5.00 mmHg RVSP: 17.74 mmHg FINDINGS -------- Sinus rhythm. Limited study due to Covid 19 exposure. LV size, wall thickness and systolic function are normal, with an EF greater than 55%. The left carolyn tricular size is normal. The right ventricle is mild to moderately enlarged. The left atrial size is normal. Echo free space indicative of a pericardial fat pad. CONCLUSIONS -------- 1. Limited study due to Covid 19 exposure. 2. LV size, wall thickness and systolic function are normal, with an EF greater than 55%. 3. The left ventricular size is normal. 4. The right ventricle is mild to moderately enlarged. 5. The left atrial size is normal. 6. Echo free space indicative of a pericardial fat pad. [employer]: Lynette Chawla RDCS
--- NOTE | 2021-09-24 11:31 | P.PN ---
Subjective Progress Note Date: 09/24/21 09/23/2021, seeing this patient for a follow-up. The patient is a case of pulmonary fibrosis secondary to underlying rheumatoid arthritis and the patient has chronic interstitial lung disease/fibrosis involving the lung bases. The patient also has had a previous history of masses/submassive unprovoked p ulmonary embolism requiring catheter directed thrombolytic therapy and the patient has been on long-term and coagulation since. The patient is also known to have COPD, previous history of pulmonary embolism, produces 7 left lower extremity DVT for which she has been maintained on long-term medical condition with Eliquis. In terms of her rheumatoid arthritis, due to financial problems, she has been on a combination of Humira and Xaljenz pparently both of these medications have been discontinued.. The patient is currently hospitalized for an acute hypoxic respiratory failure secondary to COVID 19 related infection with interval worsening in her oxygenation. She is currently on Decadron. S he'll phone and to coagulation with Lovenox. The patient had negative blood cultures. Blood work is essentially stable with a normal renal function. The patient remains on a 10 L oxygen by nasal cannula in addition to the 100% nonrebreather facemask on her current pulse ox on a 96%. She is afebrile. The white cell count is at 10.1 with hemoglobin of 10.8 and a platelet count of 281. BUN is at 14 with a creatinine of 0.7. Sodium level is at 137 . The TSH is at 0.224 with a free T4 of 1.4. LDH level was 1058 with a CRP level of 3.7. Rest of the blood work and electrodes are all within normal limits. the BUN is a 40 with a creatinine of 0.76. 09/24/2021, the patient is quite stable. She remains on high flow oxygen at 15 L along with 100% on facemask. The patient denies having any worsening shortness of breath. She has occasional cough. No significant sputum production. The patient is known to me. The patient has history of ILD, rheumatoid lung and the patient also has history of unprovoked submassive pulmonary embolism. She was receiving Imuran suppression outpatient basis. For now, the patient remains on Decadron 6 mg IV every 24 hours. The patient is also on long-term medical condition with Eliquis 5 mg by mouth twice a day. The patient has a LDH level of 1058 with a CRP level of 3.7. No altered mentation. No other new complaints otherwise for now. His resting comfortably in bed. I made the suggestion suspicious patient to high flow oxygen and discontinue the 100% nonrebreather facemask. Objective - Vital Signs Vital signs: Vital Signs Temp 97.1 F L 09/24/21 08:00 Pulse 77 09/24/21 08:00 Resp 18 09/24/21 08:00 BP 112/54 09/24/21 08:00 Pulse Ox 92 L 09/24/21 08:06 Intake & Output 09/23/21 09/24/21 09/24/21 18:59 06:59 18:59 Intake Total 1440 Output Total 425 775 Balance 1015 -775 Intake: Oral 1440 Output: Urine 425 775 Other: Voiding Method Bedside Commode Bedside Commode Bedside Commode - Exam No acute distress, oriented 3. Currently on nonrebreather mask. She will use a 10 L nasal cannula without with 100% nonrebreather facemask. HEENT examination is grossly unremarkable. Neck supple. Full range of motion. No adenopathy thyromegaly or neck vein distention. Cardiovascular examination reveals regular rhythm rate. S1-S2 normal. No S3 or S4. No discernible murmur noted. Heart rate 71 bpm. Heart sounds are distant. Lungs reveal bibasilar rhonchi and crackles. The patient has coarse crackles in lung bases bilaterally especially in the lower lung hurt bilaterally. Breath sounds equal. There are no wheezes. Abdomen soft bowel sounds are heard. No masses or tenderness. Extremities are intact. No cyanosis clubbing or edema. The patient has joint deformities related to rheumatoid arthritis. Skin is without rash or lesion. Neurologic examination is brief but nonfocal. - Labs CBC & Chem 7: 09/23/21 10:03 09/23/21 10:03 Labs: Abnormal Lab Results - Last 24 Hours (Table) 09/23/21 09/23/21 09/23/21 Range/Units 10:03 10:03 20:39 POC Glucose (mg/dL) 166 H (75-99) mg/dL Procalcitonin 0.21 H (0.02-0.09) ng/mL TSH 0.224 L (0.465-4.680) mIU/L 09/24/21 Range/Units 06:24 POC Glucose (mg/dL) 133 H (75-99) mg/dL Procalcitonin (0.02-0.09) ng/mL TSH (0.465-4.680) mIU/L Microbiology - Last 24 Hours (Table) 09/20/21 14:57 Blood Culture - Preliminary Blood No Growth after 72 hours 09/20/21 14:47 Blood Culture - Preliminary Blood No Growth after 72 hours Assessment and Plan Plan: Acute on chronic hypoxemic respiratory failure secondary to coronavirus associated pneumonia. The patient has evidence of chronic interstitial lung disease and there has been interval worsening in her oxygenation. The COVID 19 related infection/pneumonia. As such, her hypoxic respiratory failure is multifactorial and a decompensating fact that is the acute community related pneumonia. Note that the patient is also been immunosuppressed with a combination of Humira and Xalgenz on outpatient basis. Currently on Decadron. Currently on anticoagulation with Lovenox. The patient is clinically stable. The patient remains on 100% nonrebreather facemask along with oxygen at 10 L. I felt it was reasonable to switch the patient unable. Chronic hypoxemic respiratory failure, secondary to interstitial lung disease, with possible rheumatoid arthritis associated pulmonary fibrosis. History of rheumatoid arthritis. History of subacute massive pulmonary embolism, on lifelong anticoagulation. The patient to maintain on Eliquis on outpatient basis History of left lower extremity DVT. History of COPD, secondary to chronic tobacco dependence. Plan: Switch this patient to Airvo, high flow oxygen and make appropriate adjustments. We are going to start up with a flow of 55 L and FiO2 will be titrated to maintain a saturation above 90%. Continue Decadron 6 mg IV every 24 hours Continue to coagulation with Eliquis Monitor oxygenation gradually wean off the oxygen flow to maintain a saturation above 90% Chest x-ray from today showing peripheral interstitial pulmonary infiltrates consistent with COVID 19 related infection. Aeration in the upper lobes have improved Patient is a full CODE STATUS Inflammatory markers show some improvement in the LDH. CRP level is low. D- dimer is at 4.31 Repeat chest x-ray with next 24 hours We'll continue to follow
[2021-09-24 11:44] LABS: Glucose,Whole Blood 157 mg/dL (75-99)
--- NOTE | 2021-09-24 12:15 | P.PN ---
Subjective Progress Note Date: 09/24/21 CHIEF COMPLAINT: SOB HISTORY OF PRESENT ILLNESS: The patient is a pleasant 71-year-old female patient with a past medical history significant for chronic hypoxic respiratory failure and also history of pulmonary fibrosis as well as chronic obstructive pulmonary disease and also history of DVT/PE who requested to see on the fourth floor for further evaluation off cardiac arrhythmia/atrial fibrillation. The patient is somewhat is a poor historian and she is confused as well. She presented to the hospital complaining of shortness of breath and she was hypoxic. Her oxygen saturation was in the 70s when she was evaluated in the emergency department. Denies any cough or sputum or fever or chills. The patient was tested positive for COVID- 19 infection and currently she is on isolation. She does not recall having any symptoms of chest pain or chest discomfort or dizziness or lightheadedness or any presyncope or syncope. We requested to see the patient for further evaluation of atrial fibrillation. The A. fib was noted on the monitor but the time an EKG was performed she was in sinus mechanism. So overall and no documentation of atrial fibrillation by 12 please EKG. Currently the patient is in sinus rhythm and sinus tachycardia and she is also slightly hypertensive. No history of paroxysmal atrial fibrillation. She currently on oral anticoagulation for DVT/PE. She underwent a workup including sodium of 136 and potassium of 4.4 and creatinine of 1.05. Her EKG showed sinus mechanism without any significant ST or T-wave abnormalities. At this point I'm going to start the patient on Toprol-XL at 25 mg by mouth daily. We will obtain an echocardiogram to evaluate the left ventricle systolic function. We'll continue following up with her. 09/23/2021 Patient remains hospitalized on 3S. Telemetry reveals sinus mechanism. She denies chest pain or pressure. She is on high flow nasal cannula. Blood pressure stable. She is anticoagulated with Eliquis. 09/24/2021 Patient remains hospitalized on 3S. She denies chest pain or pressure. She is on high flow nasal cannula. She reports SOB. Telemetry reveals sinus mechanism. Blood pressure stable. She is anticoagulated with Eliquis. TSH 0.224. Free T4 1 0.41. Echocardiogram completed revealing ejection fraction 55%, right ventricle mild to moderately enlarged. PHYSICAL EXAM: Thorough physical exam not completed secondary to limited evaluation/examination and due to Covid19 ASSESSMENT: Covid 19 New-onset paroxysmal atrial fibrillation with RVR, currently maintaining sinus mechanism Acute on chronic hypoxic respiratory failure Pulmonary fibrosis COPD History of DVT/PE PLAN: Continue Eliquis and metoprolol Continue telemetry monitoring Patient currently stable from a cardiac standpoint Further recommendations pending patient course Nurse practitioner note has been reviewed by physician. Signing provider agrees with the documented findings, assessment, and plan of care. Objective - Vital Signs Vital signs: Vital Signs Temp 97.1 F L 09/24/21 08:00 Pulse 77 09/24/21 08:00 Resp 18 09/24/21 08:00 BP 112/54 09/24/21 08:00 Pulse Ox 92 L 09/24/21 08:06 Intake & Output 09/23/21 09/24/21 09/24/21 18:59 06:59 18:59 Intake Total 1440 Output Total 425 775 Balance 1015 -775 Intake: Oral 1440 Output: Urine 425 775 Other: Voiding Method Bedside Commode Bedside Commode Bedside Commode - Labs CBC & Chem 7: 09/23/21 10:03 09/23/21 10:03 Labs: Abnormal Lab Results - Last 24 Hours (Table) 09/23/21 09/23/21 09/23/21 Range/Units 10:03 10:03 20:39 POC Glucose (mg/dL) 166 H (75-99) mg/dL Procalcitonin 0.21 H (0.02-0.09) ng/mL TSH 0.224 L (0.465-4.680) mIU/L 09/24/21 09/24/21 Range/Units 06:24 11:43 POC Glucose (mg/dL) 133 H 157 H (75-99) mg/dL Procalcitonin (0.02-0.09) ng/mL TSH (0.465-4.680) mIU/L Microbiology - Last 24 Hours (Table) 09/20/21 14:57 Blood Culture - Preliminary Blood No Growth after 72 hours 09/20/21 14:47 Blood Culture - Preliminary Blood No Growth after 72 hours
[2021-09-24 13:00] VITALS: BMI 27.4
[2021-09-24 16:53] LABS: Glucose,Whole Blood 199 mg/dL (75-99)
--- NOTE | 2021-09-24 17:38 | P.PN ---
Subjective Progress Note Date: 09/24/21 This is a 71-year-old female admitted with acute Covid pneumonia, acute on chronic hypoxic respiratory failure, new onset atrial fibrillation and multiple other medical issues. Patient developed atrial fibrillation with RVR last night transferred to telemetry and converted back to sinus rhythm prior to initiation of Cardizem drip. Anticoagulated with Eliquis. Denies chest pain, palpitations or chest pressure. Maintained on covid cocktail. Continues on 15 L high flow nasal cannula to maintain O2 sats in the 90s. Afebrile. Labs pending. 09/24/2021 maintained on COVID cocktail. Anticoagulated with Eliquis. continues on high flow nasal cannula 15 L/100% facemask maintaining O2 sats in the low 9 0s. Reports nonproductive cough. Denies increased shortness of breath.LDL decreased to 1058, CRP down to 3.7. Maintain sinus rhythm. Denies chest pain, chest pressure or palpitations. Echo pending. Objective - Vital Signs Vital signs: Vital Signs Temp 97.4 F L 09/24/21 15:53 Pulse 71 09/24/21 15:53 Resp 18 09/24/21 15:53 BP 130/75 09/24/21 15:53 Pulse Ox 94 L 09/24/21 16:20 Intake & Output 09/23/21 09/24/21 09/24/21 18:59 06:59 18:59 Intake Total 1440 Output Total 425 775 Balance 1015 -775 Weight 68.039 kg Intake: Oral 1440 Output: Urine 425 775 Other: Voiding Method Bedside Commode Bedside Commode Bedside Commode # Voids 2 - Exam PHYSICAL EXAMINATION: Patient is sitting up in bed comfortably, no acute distress, awake alert and oriented. HEENT: Normocephalic. Neck is supple. Pupils reactive. Neck: Supple, no JVD CHEST EXAMINATION: Nonlabored, Symmetrical expansion.scattered rhonchi with Bilateral crackles and diminished air sounds. No wheezing. CARDIAC: Normal S1, S2 with no gallops. No murmurs. ABDOMEN: Soft. Bowel sounds normal. No organomegaly. No abdominal bruits. +BS. Extremities: no edema. No clubbing or cyanosis. Neurologically awake, alert, oriented x3 with well-coordinated movements. No focal deficits noted Skin: No rash, warm and dry - Labs CBC & Chem 7: 09/23/21 10:03 09/23/21 10:03 Labs: Abnormal Lab Results - Last 24 Hours (Table) 09/23/21 09/24/21 09/24/21 Range/Units 20:39 06:24 11:43 POC Glucose (mg/dL) 166 H 133 H 157 H (75-99) mg/dL 09/24/21 Range/Units 16:52 POC Glucose (mg/dL) 199 H (75-99) mg/dL Microbiology - Last 24 Hours (Table) 09/20/21 14:57 Blood Culture - Preliminary Blood No Growth after 96 hours 09/20/21 14:47 Blood Culture - Preliminary Blood No Growth after 96 hours Assessment and Plan Assessment: Acute on chronic hypoxemic respiratory failure secondary to COVID-19 pneumonia. Patient is vaccinated with 2 doses. Currently requiring 15 L high flow oxygen via nasal cannula. Atrial fibrillation new onset. Chronic hypoxic respiratory failure secondary to interstitial lung disease due to rheumatoid arthritis on 2 L oxygen via nasal cannula. 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 Maintain Covid Cocktail. Echo pending. Prognosis guarded given multiple complex medical issues. The impression and plan of care has been dictated as directed. : I performed a history and examination of this patient, discussed the same with the dictator. I agree with the dictator's note ,documented as a scribe. Any a dditional findings or plans will be noted.
[2021-09-24 19:55] LABS: Glucose,Whole Blood 250 mg/dL (75-99)
[2021-09-24] MEDS: ONDANSETRON 4 MG/2 ML VIAL IVP PRN (21:31)
[2021-09-25 06:24] LABS: Glucose,Whole Blood 118 mg/dL (75-99)
[2021-09-25] MEDS: INSULIN ASPART (NovoLOG) 100 UNIT/ML VIAL SQ SCH ×4 (06:42→20:11)
[2021-09-25] MEDS: ASCORBIC ACID 500 MG TAB PO SCH (09:13)
[2021-09-25] MEDS: CHOLECALCIFEROL 125 MCG (5000 IU) TABLET PO SCH (09:14)
[2021-09-25] MEDS: APIXABAN 5 MG TAB PO SCH ×2 (09:14→20:11)
[2021-09-25] MEDS: ZINC SULFATE 220 MG CAP PO SCH (09:14)
[2021-09-25] MEDS: DEXAMETHASONE SOD PHOSPHATE 10 MG/ML 1 ML VIAL IVP SCH (09:14)
[2021-09-25] MEDS: METOPROLOL SUCCINATE (ER) 25 MG TAB.ER.24H PO SCH (09:14)
--- NOTE | 2021-09-25 11:26 | P.PN ---
Subjective Progress Note Date: 09/25/21 This is a 71-year-old female admitted with acute Covid pneumonia, acute on chronic hypoxic respiratory failure, new onset atrial fibrillation and multiple other medical issues. Patient developed atrial fibrillation with RVR last night transferred to telemetry and converted back to sinus rhythm prior to initiation of Cardizem drip. Anticoagulated with Eliquis. Denies chest pain, palpitations or chest pressure. Maintained on covid cocktail. Continues on 15 L high flow nasal cannula to maintain O2 sats in the 90s. Afebrile. Labs pending. 09/24/2021 maintained on COVID cocktail. Anticoagulated with Eliquis. continues on high flow nasal cannula 15 L/100% facemask maintaining O2 sats in the low 9 0s. Reports nonproductive cough. Denies increased shortness of breath.LDL decreased to 1058, CRP down to 3.7. Maintain sinus rhythm. Denies chest pain, chest pressure or palpitations. Echo pending. 09/25/21 maintaining O2 sats in the low 90s on airflow 55/75 FIO2. Continues on covid cocktail. Sitting up in bed, denies chest pain, chest pressure, or cough. Denies nausea vomiting or diarrhea. Reports she's freezing -room is cold. Afebrile. Limited echo reporting normal LV function, right ventricle mild to moderately enlarged. Objective - Vital Signs Vital signs: Vital Signs Temp 97.9 F 09/25/21 08:00 Pulse 97 09/25/21 08:00 Resp 18 09/25/21 08:00 BP 102/71 09/25/21 08:00 Pulse Ox 94 L 09/25/21 08:04 Intake & Output 09/24/21 09/25/21 09/25/21 18:59 06:59 18:59 Weight 68.039 kg Other: Voiding Method Bedside Commode Bedside Commode # Voids 2 2 - Exam PHYSICAL EXAMINATION: GENERAL: Alert and oriented 3 ,sitting up in bed comfortably. HEENT: Normocephalic. Neck is supple. Pupils reactive. Neck: Supple, no JVD CHEST EXAMINATION: Nonlabored, Symmetrical expansion. Diminished air sounds. CARDIAC: Normal S1, S2 with no gallops. No murmurs. ABDOMEN: Soft. Bowel sounds normal. No organomegaly. No guarding, +BS. Extremities: no edema. No clubbing or cyanosis. Neurological: Cranial nerves II-12 grossly intact .No focal deficits noted Skin: No rash, warm and dry - Labs CBC & Chem 7: 09/23/21 10:03 09/23/21 10:03 Labs: Abnormal Lab Results - Last 24 Hours (Table) 09/24/21 09/24/21 09/24/21 Range/Units 11:43 16:52 19:53 POC Glucose (mg/dL) 157 H 199 H 250 H (75-99) mg/dL 09/25/21 Range/Units 06:21 POC Glucose (mg/dL) 118 H (75-99) mg/dL Microbiology - Last 24 Hours (Table) 09/20/21 14:57 Blood Culture - Preliminary Blood No Growth after 96 hours 09/20/21 14:47 Blood Culture - Preliminary Blood No Growth after 96 hours Assessment and Plan Assessment: Acute on chronic hypoxemic respiratory failure secondary to COVID-19 pneumonia. Patient is vaccinated X 2 doses. Currently requiring 15 L high flow oxygen via nasal cannula. Atrial fibrillation new onset. Chronic hypoxic respiratory failure secondary to interstitial lung disease due to rheumatoid arthritis on 2 L oxygen via nasal cannula. 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 Maintain Covid Cocktail. Patient encouraged to sit up in chair today. Prognosis guarded given multiple complex medical issues. The impression and plan of care has been dictated as directed. : I performed a history and examination of this patient, discussed the same with the dictator. I agree with the dictator's note ,documented as a scribe. Any additional findings or plans will be noted.
[2021-09-25 11:30] LABS: Glucose,Whole Blood 218 mg/dL (75-99)
--- NOTE | 2021-09-25 12:19 | P.PN ---
Subjective Progress Note Date: 09/25/21 CHIEF COMPLAINT: SOB HISTORY OF PRESENT ILLNESS: The patient is a pleasant 71-year-old female patient with a past medical history significant for chronic hypoxic respiratory failure and also history of pulmonary fibrosis as well as chronic obstructive pulmonary disease and also history of DVT/PE who requested to see on the fourth floor for further evaluation off cardiac arrhythmia/atrial fibrillation. The patient is somewhat is a poor historian and she is confused as well. She presented to the hospital complaining of shortness of breath and she was hypoxic. Her oxygen saturation was in the 70s when she was evaluated in the emergency department. Denies any cough or sputum or fever or chills. The patient was tested positive for COVID- 19 infection and currently she is on isolation. She does not recall having any symptoms of chest pain or chest discomfort or dizziness or lightheadedness or any presyncope or syncope. We requested to see the patient for further evaluation of atrial fibrillation. The A. fib was noted on the monitor but the time an EKG was performed she was in sinus mechanism. So overall and no documentation of atrial fibrillation by 12 please EKG. Currently the patient is in sinus rhythm and sinus tachycardia and she is also slightly hypertensive. No history of paroxysmal atrial fibrillation. She currently on oral anticoagulation for DVT/PE. She underwent a workup including sodium of 136 and potassium of 4.4 and creatinine of 1.05. Her EKG showed sinus mechanism without any significant ST or T-wave abnormalities. At this point I'm going to start the patient on Toprol-XL at 25 mg by mouth daily. We will obtain an echocardiogram to evaluate the left ventricle systolic function. We'll continue following up with her. 09/23/2021 Patient remains hospitalized on 3S. Telemetry reveals sinus mechanism. She denies chest pain or pressure. She is on high flow nasal cannula. Blood pressure stable. She is anticoagulated with Eliquis. 09/24/2021 Patient remains hospitalized on 3S. She denies chest pain or pressure. She is on high flow nasal cannula. She reports SOB. Telemetry reveals sinus mechanism. Blood pressure stable. She is anticoagulated with Eliquis. TSH 0.224. Free T4 1 0.41. Echocardiogram completed revealing ejection fraction 55%, right ventricle mild to moderately enlarged. 09/25/2021 Patient remains hospitalized on 3S. She denies chest pain or pressure. She is on AIRVO. Telemetry reveals sinus mechanism. Patient remains on Eliquis. She is also receiving metoprolol. PHYSICAL EXAM: Thorough physical exam not completed secondary to limited evaluation/examination and due to Covid19 ASSESSMENT: Covid 19 New-onset paroxysmal atrial fibrillation with RVR, currently maintaining sinus mechanism Acute on chronic hypoxic respiratory failure Pulmonary fibrosis COPD History of DVT/PE PLAN: Continue Eliquis and metoprolol Continue telemetry monitoring Patient currently stable from a cardiac standpoint We will sign off. Please reconsult if needed. Nurse practitioner note has been reviewed by physician. Signing provider agrees with the documented findings, assessment, and plan of care. Objective - Vital Signs Vital signs: Vital Signs Temp 97.8 F 09/25/21 12:00 Pulse 94 09/25/21 12:00 Resp 18 09/25/21 12:03 BP 108/64 09/25/21 12:00 Pulse Ox 98 09/25/21 12:00 Intake & Output 09/24/21 09/25/21 09/25/21 18:59 06:59 18:59 Weight 68.039 kg Other: Voiding Method Bedside Commode Bedside Commode # Voids 2 2 - Labs CBC & Chem 7: 09/23/21 10:03 09/23/21 10:03 Labs: Abnormal Lab Results - Last 24 Hours (Table) 09/24/21 09/24/21 09/25/21 Range/Units 16:52 19:53 06:21 POC Glucose (mg/dL) 199 H 250 H 118 H (75-99) mg/dL 09/25/21 Range/Units 11:28 POC Glucose (mg/dL) 218 H (75-99) mg/dL Microbiology - Last 24 Hours (Table) 09/20/21 14:57 Blood Culture - Preliminary Blood No Growth after 96 hours 09/20/21 14:47 Blood Culture - Preliminary Blood No Growth after 96 hours
--- NOTE | 2021-09-25 15:26 | P.PN ---
Subjective Progress Note Date: 09/25/21 09/23/2021, seeing this patient for a follow-up. The patient is a case of pulmonary fibrosis secondary to underlying rheumatoid arthritis and the patient has chronic interstitial lung disease/fibrosis involving the lung bases. The patient also has had a previous history of masses/submassive unprovoked p ulmonary embolism requiring catheter directed thrombolytic therapy and the patient has been on long-term and coagulation since. The patient is also known to have COPD, previous history of pulmonary embolism, produces 7 left lower extremity DVT for which she has been maintained on long-term medical condition with Eliquis. In terms of her rheumatoid arthritis, due to financial problems, she has been on a combination of Humira and Xaljenz pparently both of these medications have been discontinued.. The patient is currently hospitalized for an acute hypoxic respiratory failure secondary to COVID 19 related infection with interval worsening in her oxygenation. She is currently on Decadron. S he'll phone and to coagulation with Lovenox. The patient had negative blood cultures. Blood work is essentially stable with a normal renal function. The patient remains on a 10 L oxygen by nasal cannula in addition to the 100% nonrebreather facemask on her current pulse ox on a 96%. She is afebrile. The white cell count is at 10.1 with hemoglobin of 10.8 and a platelet count of 281. BUN is at 14 with a creatinine of 0.7. Sodium level is at 137 . The TSH is at 0.224 with a free T4 of 1.4. LDH level was 1058 with a CRP level of 3.7. Rest of the blood work and electrodes are all within normal limits. the BUN is a 40 with a creatinine of 0.76. 09/24/2021, the patient is quite stable. She remains on high flow oxygen at 15 L along with 100% on facemask. The patient denies having any worsening shortness of breath. She has occasional cough. No significant sputum production. The patient is known to me. The patient has history of ILD, rheumatoid lung and the patient also has history of unprovoked submassive pulmonary embolism. She was receiving Imuran suppression outpatient basis. For now, the patient remains on Decadron 6 mg IV every 24 hours. The patient is also on long-term medical condition with Eliquis 5 mg by mouth twice a day. The patient has a LDH level of 1058 with a CRP level of 3.7. No altered mentation. No other new complaints otherwise for now. His resting comfortably in bed. I made the suggestion suspicious patient to high flow oxygen and discontinue the 100% nonrebreather facemask. 09/25/2021, seeing the patient for a follow-up. The patient is currently on Airvo and the patient has been placed on Airvo at 55 L with an FiO2 of 70%. Her current pulse ox around 94-98%. She seems to be much more comfortable on Airvo compared to the 100% on a beta facemask. The patient is not having any worsening shortness of breath. She has labored breathing but she is not any worse compared to yesterday. The patient is afebrile. The patient's h emodynamically stable. The patient is able to sit up on a chair. No new labs are available from today. Blood sugars of 218. No recent chest x-ray. Inflammatory markers and the blood work and a chest x-ray will be repeated for tomorrow. Remains on Decadron 6 mg IV every 24 hours. He remains on Eliquis 5 mg by mouth twice a day. Remains on examination of vitamin C and vitamin D and zinc. No other significant events overnight pH is communicating and altered mentation. Objective - Vital Signs Vital signs: Vital Signs Temp 97.8 F 09/25/21 12:00 Pulse 94 09/25/21 12:00 Resp 18 09/25/21 12:03 BP 108/64 09/25/21 12:00 Pulse Ox 98 09/25/21 12:00 Intake & Output 09/24/21 09/25/21 09/25/21 18:59 06:59 18:59 Weight 68.039 kg Other: Voiding Method Bedside Commode Bedside Commode # Voids 2 2 - Exam No acute distress, oriented 3. Currently on nonrebreather mask. She will use Airvo 55 L with an FiO2 of 70%. HEENT examination is grossly unremarkable. Neck supple. Full range of motion. No adenopathy thyromegaly or neck vein distention. Cardiovascular examination reveals regular rhythm rate. S1-S2 normal. No S3 or S4. No discernible murmur noted. Heart rate 71 bpm. Heart sounds are distant. Lungs reveal bibasilar rhonchi and crackles. The patient has coarse crackles in lung bases bilaterally especially in the lower lung hurt bilaterally. Breath sounds equal. There are no wheezes. Abdomen soft bowel sounds are heard. No masses or tenderness. Extremities are intact. No cyanosis clubbing or edema. The patient has joint deformities related to rheumatoid arthritis. Skin is without rash or lesion. Neurologic examination is brief but nonfocal. - Labs CBC & Chem 7: 09/23/21 10:03 09/23/21 10:03 Labs: Abnormal Lab Results - Last 24 Hours (Table) 09/24/21 09/24/21 09/25/21 Range/Units 16:52 19:53 06:21 POC Glucose (mg/dL) 199 H 250 H 118 H (75-99) mg/dL 09/25/21 Range/Units 11:28 POC Glucose (mg/dL) 218 H (75-99) mg/dL Microbiology - Last 24 Hours (Table) 09/20/21 14:57 Blood Culture - Preliminary Blood No Growth after 96 hours 09/20/21 14:47 Blood Culture - Preliminary Blood No Growth after 96 hours Assessment and Plan Plan: Acute on chronic hypoxemic respiratory failure secondary to coronavirus associated pneumonia. The patient has evidence of chronic interstitial lung disease and there has been interval worsening in her oxygenation. The COVID 19 related infection/pneumonia. As such, her hypoxic respiratory failure is multifactorial and a decompensating fact that is the acute community related pneumonia. Note that the patient is also been immunosuppressed with a combination of Humira and Xalgenz on outpatient basis. Currently on Decadron. Currently on anticoagulation with Lovenox. The patient is clinically stable. The patient was taken off the 100% on a beta facemask and the patient was placed on Airvo with a flow of 55 L an FiO2 of 70%. The patient is comfortable on the setting. Pulse ox is ranging between 94 and 98%. Inflammatory markers and the chest exit needs to be repeated for tomorrow. He remains on Decadron. She is on long-term anticoagulation with Eliquis. Chronic hypoxemic respiratory failure, secondary to interstitial lung disease, with possible rheumatoid arthritis associated pulmonary fibrosis. History of rheumatoid arthritis. History of subacute massive pulmonary embolism, on lifelong anticoagulation. The patient to maintain on Eliquis on outpatient basis History of left lower extremity DVT. History of COPD, secondary to chronic tobacco dependence. Plan: Continue Airvo for now with a flow of 6 L an FiO2 of 70% repeat chest x-ray in the morning Repeat inflammatory markers in the morning Continue Decadron 6 mg IV every 24 hours Continue to coagulation with Eliquis Patient is a full CODE STATUS Repeat chest x-ray with next 24 hours We'll continue to follow
[2021-09-25 16:32] LABS: Glucose,Whole Blood 166 mg/dL (75-99)
[2021-09-25 19:58] LABS: Glucose,Whole Blood 236 mg/dL (75-99)
[2021-09-26 06:37] LABS: Glucose,Whole Blood 92 mg/dL (75-99)
[2021-09-26] MEDS: INSULIN ASPART (NovoLOG) 100 UNIT/ML VIAL SQ SCH ×4 (06:39→21:51)
--- NOTE | 2021-09-26 07:44 | XR ---
EXAMINATION TYPE: XR chest 1V DATE OF EXAM: 09/26/2021 COMPARISON: 09/23/2021 HISTORY: 71 year-old female follow-up pneumonia TECHNIQUE: Single frontal view of the chest is obtained. FINDINGS: Heart normal size. Interstitial prominence and reticular infiltrates in the periphery of t he lungs and at the lung bases, left greater than right. Overall unchanged. IMPRESSION: Similar interstitial infiltrates, left greater than right.
[2021-09-26 08:43] LABS: ALT 33 U/L (4-34); AST 30 U/L (14-36); African American GFR (CKD) >90 (>60 ml/min/1.73 sqM); Albumin 3.2 g/dL (3.5-5.0); Alkaline Phosphatase 70 U/L (38-126); Anion Gap 4 mmol/L; Blood Urea Nitrogen 24 mg/dL (7-17); C Reactive Protein 0.7 mg/dL (<1.0); Calcium 8.8 mg/dL (8.4-10.2); Carbon Dioxide 29 mmol/L (22-30); Chloride 102 mmol/L (98-107); Glucose 88 mg/dL (74-99); LDH 853 U/L (313-618); Non-African American GFR(CKD) 78 (>60 ml/min/1.73 sqM); Potassium 4.4 mmol/L (3.5-5.1); Sodium 135 mmol/L (137-145); Total Bilirubin 0.5 mg/dL (0.2-1.3); Total Protein 6.7 g/dL (6.3-8.2)
[2021-09-26 08:57] LABS: Basophils % (A) 0 %; Eosinophils % (A) 0 %; HCT 37.9 % (34.0-46.0); HGB 11.8 gm/dL (11.4-16.0); Hypochromasia Moderate; Lymphocytes # (A) 0.8 k/uL (1.0-4.8); Lymphocytes % (A) 7 %; MCH 28.9 pg (25.0-35.0); MCHC 31.1 g/dL (31.0-37.0); MCV 92.9 fL (80.0-100.0); Mean Platelet Volume 8.5; Monocytes # (A) 0.6 k/uL (0-1.0); Monocytes % (A) 5 %; Neutrophils # (A) 9.3 k/uL (1.3-7.7); Neutrophils % (A) 85 %; Platelet Count 312 k/uL (150-450); RBC 4.08 m/uL (3.80-5.40)
[2021-09-26] MEDS: DEXAMETHASONE SOD PHOSPHATE 10 MG/ML 1 ML VIAL IVP SCH (11:50)
[2021-09-26] MEDS: CHOLECALCIFEROL 125 MCG (5000 IU) TABLET PO SCH (11:50)
[2021-09-26] MEDS: ASCORBIC ACID 500 MG TAB PO SCH (11:50)
[2021-09-26] MEDS: ZINC SULFATE 220 MG CAP PO SCH (11:50)
[2021-09-26] MEDS: APIXABAN 5 MG TAB PO SCH ×2 (11:50→21:50)
[2021-09-26] MEDS: METOPROLOL SUCCINATE (ER) 25 MG TAB.ER.24H PO SCH (11:50)
[2021-09-26 11:57] LABS: Glucose,Whole Blood 186 mg/dL (75-99)
--- NOTE | 2021-09-26 14:48 | P.PN ---
Subjective Progress Note Date: 09/26/21 09/23/2021, seeing this patient for a follow-up. The patient is a case of pulmonary fibrosis secondary to underlying rheumatoid arthritis and the patient has chronic interstitial lung disease/fibrosis involving the lung bases. The patient also has had a previous history of masses/submassive unprovoked p ulmonary embolism requiring catheter directed thrombolytic therapy and the patient has been on long-term and coagulation since. The patient is also known to have COPD, previous history of pulmonary embolism, produces 7 left lower extremity DVT for which she has been maintained on long-term medical condition with Eliquis. In terms of her rheumatoid arthritis, due to financial problems, she has been on a combination of Humira and Xaljenz pparently both of these medications have been discontinued.. The patient is currently hospitalized for an acute hypoxic respiratory failure secondary to COVID 19 related infection with interval worsening in her oxygenation. She is currently on Decadron. S he'll phone and to coagulation with Lovenox. The patient had negative blood cultures. Blood work is essentially stable with a normal renal function. The patient remains on a 10 L oxygen by nasal cannula in addition to the 100% nonrebreather facemask on her current pulse ox on a 96%. She is afebrile. The white cell count is at 10.1 with hemoglobin of 10.8 and a platelet count of 281. BUN is at 14 with a creatinine of 0.7. Sodium level is at 137 . The TSH is at 0.224 with a free T4 of 1.4. LDH level was 1058 with a CRP level of 3.7. Rest of the blood work and electrodes are all within normal limits. the BUN is a 40 with a creatinine of 0.76. 09/24/2021, the patient is quite stable. She remains on high flow oxygen at 15 L along with 100% on facemask. The patient denies having any worsening shortness of breath. She has occasional cough. No significant sputum production. The patient is known to me. The patient has history of ILD, rheumatoid lung and the patient also has history of unprovoked submassive pulmonary embolism. She was receiving Imuran suppression outpatient basis. For now, the patient remains on Decadron 6 mg IV every 24 hours. The patient is also on long-term medical condition with Eliquis 5 mg by mouth twice a day. The patient has a LDH level of 1058 with a CRP level of 3.7. No altered mentation. No other new complaints otherwise for now. His resting comfortably in bed. I made the suggestion suspicious patient to high flow oxygen and discontinue the 100% nonrebreather facemask. 09/25/2021, seeing the patient for a follow-up. The patient is currently on Airvo and the patient has been placed on Airvo at 55 L with an FiO2 of 70%. Her current pulse ox around 94-98%. She seems to be much more comfortable on Airvo compared to the 100% on a beta facemask. The patient is not having any worsening shortness of breath. She has labored breathing but she is not any worse compared to yesterday. The patient is afebrile. The patient's h emodynamically stable. The patient is able to sit up on a chair. No new labs are available from today. Blood sugars of 218. No recent chest x-ray. Inflammatory markers and the blood work and a chest x-ray will be repeated for tomorrow. Remains on Decadron 6 mg IV every 24 hours. He remains on Eliquis 5 mg by mouth twice a day. Remains on examination of vitamin C and vitamin D and zinc. No other significant events overnight pH is communicating and altered mentation. 09/26/2021, the patient is being seen for a follow-up. The patient remains on high flow oxygen with Airvo 55 L and FiO2 of 70% and the same setting as yesterday. Pulse ox is ranging between 88-91%. She reports essentially being the same. No worsening shortness of breath since yesterday. Currently stable. Breathing is nonlabored according to her. The patient remains on treatment with Decadron 6 mg IV every 24 hours. She is also on long-term medical condition with Eliquis 5 mg by mouth twice a day. Her white cell count is at 11 with a hemoglobin of 11.8. D-dimer is at 5.2. Sodium is at 135 with a potassium level of 4.4 and a mean of 24 with a creatinine of 0.7. LFTs are normal. LDH level is at a 853 and this is improved from 1058 on 09/23/2021. CRP level is down to 0.7 which is also improved. She is afebrile. She is hemodynamically stable. She is known to fibrosis related to ILD/RA. She has noticed immunosuppression treatment on outpatient basis. She has also COPD. Objective - Vital Signs Vital signs: Vital Signs Temp 97.8 F 09/26/21 11:55 Pulse 82 09/26/21 11:55 Resp 20 09/26/21 11:55 BP 108/74 09/26/21 11:55 Pulse Ox 88 L 09/26/21 11:55 Intake & Output 09/25/21 09/26/21 09/26/21 18:59 06:59 18:59 Intake Total 400 120 Balance 400 120 Intake: Oral 400 120 Other: Voiding Method Bedside Commode Bedside Commode # Voids 2 - Exam No acute distress, oriented 3. Currently on nonrebreather mask. She will use Airvo 55 L with an FiO2 of 70%. HEENT examination is grossly unremarkable. Neck supple. Full range of motion. No adenopathy thyromegaly or neck vein distention. Cardiovascular examination reveals regular rhythm rate. S1-S2 normal. No S3 or S4. No discernible murmur noted. Heart rate 71 bpm. Heart sounds are distant. Lungs reveal bibasilar rhonchi and crackles. The patient has coarse crackles in lung bases bilaterally especially in the lower lung hurt bilaterally. Breath sounds equal. There are no wheezes. Abdomen soft bowel sounds are heard. No masses or tenderness. Extremities are intact. No cyanosis clubbing or edema. The patient has joint deformities related to rheumatoid arthritis. Skin is without rash or lesion. Neurologic examination is brief but nonfocal. - Labs CBC & Chem 7: 09/26/21 07:33 09/26/21 07:33 Labs: Abnormal Lab Results - Last 24 Hours (Table) 09/25/21 09/25/21 09/26/21 Range/Units 16:31 19:56 07:33 WBC 11.0 H (3.8-10.6) k/uL Neutrophils # 9.3 H (1.3-7.7) k/uL Lymphocytes # 0.8 L (1.0-4.8) k/uL D-Dimer (<0.60) mg/L FEU Sodium (137-145) mmol/L BUN (7-17) mg/dL POC Glucose (mg/dL) 166 H 236 H (75-99) mg/dL Lactate Dehydrogenase (313-618) U/L Albumin (3.5-5.0) g/dL 09/26/21 09/26/21 09/26/21 Range/Units 07:33 07:33 11:56 WBC (3.8-10.6) k/uL Neutrophils # (1.3-7.7) k/uL Lymphocytes # (1.0-4.8) k/uL D-Dimer 5.20 H (<0.60) mg/L FEU Sodium 135 L (137-145) mmol/L BUN 24 H (7-17) mg/dL POC Glucose (mg/dL) 186 H (75-99) mg/dL Lactate Dehydrogenase 853 H (313-618) U/L Albumin 3.2 L (3.5-5.0) g/dL Microbiology - Last 24 Hours (Table) 09/20/21 14:47 Blood Culture - Preliminary Blood No Growth after 120 hours 09/20/21 14:57 Blood Culture - Preliminary Blood No Growth after 120 hours Assessment and Plan Plan: Acute on chronic hypoxemic respiratory failure secondary to coronavirus associated pneumonia. The patient has evidence of chronic interstitial lung disease and there has been interval worsening in her oxygenation. The COVID 19 related infection/pneumonia. As such, her hypoxic respiratory failure is multifactorial and a decompensating fact that is the acute community related pneumonia. Note that the patient is also been immunosuppressed with a combination of Humira and Xalgenz on outpatient basis. Currently on Decadron. Currently on anticoagulation with Lovenox. The patient is clinically stable. The patient placed on Airvo with a flow of 55 L an FiO2 of 70%. The patient is comfortable on the setting. Clinically stable and unchanged compared to . Inflammatory markers are all improving and the patient remains on anticoagulation with Eliquis. Chronic hypoxemic respiratory failure, secondary to interstitial lung disease, with possible rheumatoid arthritis associated pulmonary fibrosis. History of rheumatoid arthritis. History of subacute massive pulmonary embolism, on lifelong anticoagulation. The patient to maintain on Eliquis on outpatient basis History of left lower extremity DVT. History of COPD, secondary to chronic tobacco dependence. Plan: Continue Airvo for now with a flow of 55 L an FiO2 of 70% repeat chest x-ray from today was noted and shows similar interstitial infi ltrates left more than right, essentially unchanged Repeat inflammatory markers in the morning, levels are improving Continue Decadron 6 mg IV every 24 hours Continue to coagulation with Eliquis Patient is a full CODE STATUS We'll continue to follow
[2021-09-26] MEDS: ALBUTEROL HFA INHALER INHALATION PRN (15:18)
--- NOTE | 2021-09-26 16:00 | P.PN ---
Subjective Progress Note Date: 09/26/21 This is a 71-year-old female admitted with acute Covid pneumonia, acute on chronic hypoxic respiratory failure, new onset atrial fibrillation and multiple other medical issues. Patient developed atrial fibrillation with RVR last night transferred to telemetry and converted back to sinus rhythm prior to initiation of Cardizem drip. Anticoagulated with Eliquis. Denies chest pain, palpitations or chest pressure. Maintained on covid cocktail. Continues on 15 L high flow nasal cannula to maintain O2 sats in the 90s. Afebrile. Labs pending. 09/24/2021 maintained on COVID cocktail. Anticoagulated with Eliquis. continues on high flow nasal cannula 15 L/100% facemask maintaining O2 sats in the low 9 0s. Reports nonproductive cough. Denies increased shortness of breath.LDL decreased to 1058, CRP down to 3.7. Maintain sinus rhythm. Denies chest pain, chest pressure or palpitations. Echo pending. 09/25/21 maintaining O2 sats in the low 90s on airflow 55/75 FIO2. Continues on covid cocktail. Sitting up in bed, denies chest pain, chest pressure, or cough. Denies nausea vomiting or diarrhea. Reports she's freezing -room is cold. Afebrile. Limited echo reporting normal LV function, right ventricle mild to moderately enlarged. 09/26/2021 continues on Covid Cocktail. continues to feel well, denies cough. Afebrile, denies any chills. Maintaining O2 sats in the low 90s to high 80s on airvo 55 L/70% Fio2. Denies any chest pain, chest pressure palpitations or increasing shortness of breath. Afebrile, d-dimer 5.2 LDH, CRP improving. Chest x-ray reports unchanged. Objective - Vital Signs Vital signs: Vital Signs Temp 97.8 F 09/26/21 11:55 Pulse 82 09/26/21 11:55 Resp 20 09/26/21 11:55 BP 108/74 09/26/21 11:55 Pulse Ox 88 L 09/26/21 11:55 Intake & Output 09/25/21 09/26/21 09/26/21 18:59 06:59 18:59 Intake Total 400 120 Balance 400 120 Intake: Oral 400 120 Other: Voiding Method Bedside Commode Bedside Commode # Voids 2 - Exam PHYSICAL EXAMINATION: GENERAL: Alert and oriented 3 ,sitting up in bed comfortably. HEENT: Normocephalic. Neck is supple. Pupils reactive. Neck: Supple, no JVD CHEST EXAMINATION: Nonlabored, Symmetrical expansion. Diminished air sounds. Coarse bibasilar crackles CARDIAC: Normal S1, S2 with no gallops. No murmurs. ABDOMEN: Soft. Bowel sounds normal. No organomegaly. No guarding, +BS. Extremities: no edema. No clubbing or cyanosis. Neurological: Cranial nerves II-12 grossly intact .No focal deficits noted Skin: No rash, warm and dry - Labs CBC & Chem 7: 09/26/21 07:33 09/26/21 07:33 Labs: Abnormal Lab Results - Last 24 Hours (Table) 09/25/21 09/25/21 09/26/21 Range/Units 16:31 19:56 07:33 WBC 11.0 H (3.8-10.6) k/uL Neutrophils # 9.3 H (1.3-7.7) k/uL Lymphocytes # 0.8 L (1.0-4.8) k/uL D-Dimer (<0.60) mg/L FEU Sodium (137-145) mmol/L BUN (7-17) mg/dL POC Glucose (mg/dL) 166 H 236 H (75-99) mg/dL Lactate Dehydrogenase (313-618) U/L Albumin (3.5-5.0) g/dL 09/26/21 09/26/21 09/26/21 Range/Units 07:33 07:33 11:56 WBC (3.8-10.6) k/uL Neutrophils # (1.3-7.7) k/uL Lymphocytes # (1.0-4.8) k/uL D-Dimer 5.20 H (<0.60) mg/L FEU Sodium 135 L (137-145) mmol/L BUN 24 H (7-17) mg/dL POC Glucose (mg/dL) 186 H (75-99) mg/dL Lactate Dehydrogenase 853 H (313-618) U/L Albumin 3.2 L (3.5-5.0) g/dL Microbiology - Last 24 Hours (Table) 09/20/21 14:47 Blood Culture - Preliminary Blood No Growth after 120 hours 09/20/21 14:57 Blood Culture - Preliminary Blood No Growth after 120 hours Assessment and Plan Assessment: Acute on chronic hypoxemic respiratory failure secondary to COVID-19 pneumonia. Patient is vaccinated X 2 doses. Currently requiring 15 L high flow oxygen via nasal cannula. Atrial fibrillation new onset. Chronic hypoxic respiratory failure secondary to interstitial lung disease due to rheumatoid arthritis on 2 L oxygen via nasal cannula. 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 Maintain Covid Cocktail,Airvo. Anticoagulated with eliquis. Patient encouraged to sit up in chair today. Prognosis guarded given multiple complex medical issues. The impression and plan of care has been dictated as directed. : I performed a history and examination of this patient, discussed the same with the dictator. I agree with the dictator's note ,documented as a scribe. Any additional findings or plans will be noted.
[2021-09-26 16:42] LABS: Glucose,Whole Blood 159 mg/dL (75-99)
[2021-09-26 20:11] LABS: Glucose,Whole Blood 370 mg/dL (75-99)
[2021-09-26] MEDS ORDERED: INSULIN DETEMIR (LEVEMIR) 100 UNIT/ML SYR SQ SCH (21:00)
[2021-09-27] MEDS: INSULIN ASPART (NovoLOG) 100 UNIT/ML VIAL SQ SCH ×4 (06:19→20:00)
[2021-09-27 06:22] LABS: Glucose,Whole Blood 120 mg/dL (75-99)
[2021-09-27] MEDS: ALBUTEROL HFA INHALER INHALATION PRN ×2 (07:30→11:35)
[2021-09-27] MEDS: METOPROLOL SUCCINATE (ER) 25 MG TAB.ER.24H PO SCH (10:28)
[2021-09-27] MEDS: CHOLECALCIFEROL 125 MCG (5000 IU) TABLET PO SCH (10:29)
[2021-09-27] MEDS: ASCORBIC ACID 500 MG TAB PO SCH (10:29)
[2021-09-27] MEDS: DEXAMETHASONE SOD PHOSPHATE 10 MG/ML 1 ML VIAL IVP SCH (10:29)
[2021-09-27] MEDS: APIXABAN 5 MG TAB PO SCH ×2 (10:29→20:00)
[2021-09-27] MEDS: ZINC SULFATE 220 MG CAP PO SCH (10:29)
[2021-09-27 11:38] LABS: HCT 39.6 % (34.0-46.0); HGB 12.3 gm/dL (11.4-16.0); Hypochromasia Moderate; MCH 29.1 pg (25.0-35.0); MCHC 31.2 g/dL (31.0-37.0); MCV 93.4 fL (80.0-100.0); Mean Platelet Volume 9.3; Platelet Count 333 k/uL (150-450); RBC 4.24 m/uL (3.80-5.40); RDW 14.6 % (11.5-15.5); WBC 16.1 k/uL (3.8-10.6)
[2021-09-27 11:47] LABS: Calcium 9.4 mg/dL (8.4-10.2); Potassium 4.3 mmol/L (3.5-5.1)
[2021-09-27 11:49] LABS: Glucose,Whole Blood 204 mg/dL (75-99)
--- NOTE | 2021-09-27 15:23 | P.PN ---
Subjective Progress Note Date: 09/27/21 09/23/2021, seeing this patient for a follow-up. The patient is a case of pulmonary fibrosis secondary to underlying rheumatoid arthritis and the patient has chronic interstitial lung disease/fibrosis involving the lung bases. The patient also has had a previous history of masses/submassive unprovoked p ulmonary embolism requiring catheter directed thrombolytic therapy and the patient has been on long-term and coagulation since. The patient is also known to have COPD, previous history of pulmonary embolism, produces 7 left lower extremity DVT for which she has been maintained on long-term medical condition with Eliquis. In terms of her rheumatoid arthritis, due to financial problems, she has been on a combination of Humira and Xaljenz pparently both of these medications have been discontinued.. The patient is currently hospitalized for an acute hypoxic respiratory failure secondary to COVID 19 related infection with interval worsening in her oxygenation. She is currently on Decadron. S he'll phone and to coagulation with Lovenox. The patient had negative blood cultures. Blood work is essentially stable with a normal renal function. The patient remains on a 10 L oxygen by nasal cannula in addition to the 100% nonrebreather facemask on her current pulse ox on a 96%. She is afebrile. The white cell count is at 10.1 with hemoglobin of 10.8 and a platelet count of 281. BUN is at 14 with a creatinine of 0.7. Sodium level is at 137 . The TSH is at 0.224 with a free T4 of 1.4. LDH level was 1058 with a CRP level of 3.7. Rest of the blood work and electrodes are all within normal limits. the BUN is a 40 with a creatinine of 0.76. 09/24/2021, the patient is quite stable. She remains on high flow oxygen at 15 L along with 100% on facemask. The patient denies having any worsening shortness of breath. She has occasional cough. No significant sputum production. The patient is known to me. The patient has history of ILD, rheumatoid lung and the patient also has history of unprovoked submassive pulmonary embolism. She was receiving Imuran suppression outpatient basis. For now, the patient remains on Decadron 6 mg IV every 24 hours. The patient is also on long-term medical condition with Eliquis 5 mg by mouth twice a day. The patient has a LDH level of 1058 with a CRP level of 3.7. No altered mentation. No other new complaints otherwise for now. His resting comfortably in bed. I made the suggestion suspicious patient to high flow oxygen and discontinue the 100% nonrebreather facemask. 09/25/2021, seeing the patient for a follow-up. The patient is currently on Airvo and the patient has been placed on Airvo at 55 L with an FiO2 of 70%. Her current pulse ox around 94-98%. She seems to be much more comfortable on Airvo compared to the 100% on a beta facemask. The patient is not having any worsening shortness of breath. She has labored breathing but she is not any worse compared to yesterday. The patient is afebrile. The patient's h emodynamically stable. The patient is able to sit up on a chair. No new labs are available from today. Blood sugars of 218. No recent chest x-ray. Inflammatory markers and the blood work and a chest x-ray will be repeated for tomorrow. Remains on Decadron 6 mg IV every 24 hours. He remains on Eliquis 5 mg by mouth twice a day. Remains on examination of vitamin C and vitamin D and zinc. No other significant events overnight pH is communicating and altered mentation. 09/26/2021, the patient is being seen for a follow-up. The patient remains on high flow oxygen with Airvo 55 L and FiO2 of 70% and the same setting as yesterday. Pulse ox is ranging between 88-91%. She reports essentially being the same. No worsening shortness of breath since yesterday. Currently stable. Breathing is nonlabored according to her. The patient remains on treatment with Decadron 6 mg IV every 24 hours. She is also on long-term medical condition with Eliquis 5 mg by mouth twice a day. Her white cell count is at 11 with a hemoglobin of 11.8. D-dimer is at 5.2. Sodium is at 135 with a potassium level of 4.4 and a mean of 24 with a creatinine of 0.7. LFTs are normal. LDH level is at a 853 and this is improved from 1058 on 09/23/2021. CRP level is down to 0.7 which is also improved. She is afebrile. She is hemodynamically stable. She is known to fibrosis related to ILD/RA. She has noticed immunosuppression treatment on outpatient basis. She has also COPD. 09/27/2021, seeing the patient for a follow-up. The patient remains on high flow oxygen 55 L with an FiO2 of 70% which is essentially the same setting as yesterday. Doing well. Pulse ox and order of 93%. No worsening shortness of breath. Resting comfortable. She feels clinically improved. Oxygenation remains unchanged however. The blood work from today shows a sodium 133, BUN is at 33 with a creatinine of 0.8 and a blood sugars at 28. The white cell count is 16. Most recent LDH level is at a 53. CRP level is at 0.7. D-dimer is at 5.2. She remains on Decadron. She remains on Eliquis 5 mg by mouth twice a day. She has previous history of DVT and pulmonary embolism, unprovoked and the patient has been lifelong anticoagulation. Objective - Vital Signs Vital signs: Vital Signs Temp 97.3 F L 09/27/21 12:00 Pulse 75 09/27/21 12:00 Resp 19 09/27/21 12:00 BP 115/74 09/27/21 12:00 Pulse Ox 93 L 09/27/21 12:00 Intake & Output 09/26/21 09/27/21 09/27/21 18:59 06:59 18:59 Intake Total 480 360 Output Total 300 Balance 180 360 Intake: Oral 480 360 Output: Urine 300 Other: Voiding Method Bedside Commode Bedside Commode Bedside Commode # Voids 1 - Exam No acute distress, oriented 3. Currently on nonrebreather mask. She will use Airvo 55 L with an FiO2 of 70%. HEENT examination is grossly unremarkable. Neck supple. Full range of motion. No adenopathy thyromegaly or neck vein distention. Cardiovascular examination reveals regular rhythm rate. S1-S2 normal. No S3 or S4. No discernible murmur noted. Heart rate 71 bpm. Heart sounds are distant. Lungs reveal bibasilar rhonchi and crackles. The patient has coarse crackles in lung bases bilaterally especially in the lower lung hurt bilaterally. Breath sounds equal. There are no wheezes. Abdomen soft bowel sounds are heard. No masses or tenderness. Extremities are intact. No cyanosis clubbing or edema. The patient has joint deformities related to rheumatoid arthritis. Skin is without rash or lesion. Neurologic examination is brief but nonfocal. - Labs CBC & Chem 7: 09/27/21 11:28 09/27/21 11:28 Labs: Abnormal Lab Results - Last 24 Hours (Table) 09/26/21 09/26/21 09/27/21 Range/Units 16:41 20:09 06:18 WBC (3.8-10.6) k/uL Sodium (137-145) mmol/L BUN (7-17) mg/dL Glucose (74-99) mg/dL POC Glucose (mg/dL) 159 H 370 H 120 H (75-99) mg/dL 09/27/21 09/27/21 09/27/21 Range/Units 11:28 11:28 11:47 WBC 16.1 H (3.8-10.6) k/uL Sodium 133 L (137-145) mmol/L BUN 33 H (7-17) mg/dL Glucose 208 H (74-99) mg/dL POC Glucose (mg/dL) 204 H (75-99) mg/dL Microbiology - Last 24 Hours (Table) 09/20/21 14:57 Blood Culture - Final Blood No Growth after 144 hours 09/20/21 14:47 Blood Culture - Final Blood No Growth after 144 hours Assessment and Plan Plan: Acute on chronic hypoxemic respiratory failure secondary to coronavirus assoc iated pneumonia. The patient has evidence of chronic interstitial lung disease and there has been interval worsening in her oxygenation. The COVID 19 related infection/pneumonia. As such, her hypoxic respiratory failure is multifactorial and a decompensating fact that is the acute community related pneumonia. Note that the patient is also been immunosuppressed with a combination of Humira and Xalgenz on outpatient basis. Currently on Decadron. Currently on anticoagulation with Lovenox. The patient is clinically stable. The patient placed on Airvo with a flow of 55 L an FiO2 of 70%. The patient is comfortable on the setting. Clinically stable and unchanged compared to yesterday. I nflammatory markers are all improving and the patient remains on anticoagulation with Eliquis. Chronic hypoxemic respiratory failure, secondary to interstitial lung disease, with possible rheumatoid arthritis associated pulmonary fibrosis. History of rheumatoid arthritis. History of subacute massive pulmonary embolism, on lifelong anticoagulation. The patient to maintain on Eliquis on outpatient basis History of left lower extremity DVT. History of COPD, secondary to chronic tobacco dependence. Plan: Continue Airvo for now with a flow of 55 L an FiO2 of 70% , continue the same oxygen flow P is clinically unchanged compared to yesterday. Her condition is stable maintaining saturation above 90% on this high flow oxygen setting. repeat chest x-ray from yesterday was noted and shows similar interstitial infiltrates left more than right, essentially unchanged Repeat inflammatory markers in the morning, levels are improving Continue Decadron 6 mg IV every 24 hours Continue to coagulation with Eliquis Patient is a full CODE STATUS We'll continue to follow
[2021-09-27] MEDS ORDERED: CALCIUM CARBONATE 500 MG CHEWABLE PO PRN (16:05)
[2021-09-27 16:31] LABS: Glucose,Whole Blood 266 mg/dL (75-99)
--- NOTE | 2021-09-27 17:12 | P.PN ---
Subjective Progress Note Date: 09/27/21 This is a 71-year-old female admitted with acute Covid pneumonia, acute on chronic hypoxic respiratory failure, new onset atrial fibrillation and multiple other medical issues. Patient developed atrial fibrillation with RVR last night transferred to telemetry and converted back to sinus rhythm prior to initiation of Cardizem drip. Anticoagulated with Eliquis. Denies chest pain, palpitations or chest pressure. Maintained on covid cocktail. Continues on 15 L high flow nasal cannula to maintain O2 sats in the 90s. Afebrile. Labs pending. 09/24/2021 maintained on COVID cocktail. Anticoagulated with Eliquis. continues on high flow nasal cannula 15 L/100% facemask maintaining O2 sats in the low 9 0s. Reports nonproductive cough. Denies increased shortness of breath.LDL decreased to 1058, CRP down to 3.7. Maintain sinus rhythm. Denies chest pain, chest pressure or palpitations. Echo pending. 09/25/21 maintaining O2 sats in the low 90s on airflow 55/75 FIO2. Continues on covid cocktail. Sitting up in bed, denies chest pain, chest pressure, or cough. Denies nausea vomiting or diarrhea. Reports she's freezing -room is cold. Afebrile. Limited echo reporting normal LV function, right ventricle mild to moderately enlarged. 09/26/2021 continues on Covid Cocktail. continues to feel well, denies cough. Afebrile, denies any chills. Maintaining O2 sats in the low 90s to high 80s on airvo 55 L/70% Fio2. Denies any chest pain, chest pressure palpitations or increasing shortness of breath. Afebrile, d-dimer 5.2 LDH, CRP improving. Chest x-ray reports unchanged. 09/27/2021 Feels better today ,reports able to deep breath easier. Denies cough.Maintaining O2 sats in the 90s on flow rate 55/ 70 Fio2. Continues on Covid cocktail .Afebrile, WBC 16.1. Anticoagulated on Eliquis. Objective - Vital Signs Vital signs: Vital Signs Temp 98.1 F 09/27/21 08:00 Pulse 76 09/27/21 08:00 Resp 18 09/27/21 08:00 BP 102/64 09/27/21 08:00 Pulse Ox 93 L 09/27/21 08:00 Intake & Output 09/26/21 09/27/21 09/27/21 18:59 06:59 18:59 Intake Total 480 360 Output Total 300 Balance 180 360 Intake: Oral 480 360 Output: Urine 300 Other: Voiding Method Bedside Commode Bedside Commode Bedside Commode # Voids 1 - Exam PHYSICAL EXAMINATION: GENERAL: Alert and oriented 3 ,sitting up in bed comfortably. HEENT: Normocephalic. Neck is supple. Pupils reactive. Neck: Supple, no JVD CHEST EXAMINATION: Nonlabored, Symmetrical expansion. Diminished air sounds. Coarse bibasilar crackles CARDIAC: Normal S1, S2 with no gallops. No murmurs. ABDOMEN: Soft. Bowel sounds normal. No organomegaly. No guarding, +BS. Extremities: no edema. No clubbing or cyanosis. Neurological: Cranial nerves II-12 grossly intact .No focal deficits noted Skin: No rash, warm and dry - Labs CBC & Chem 7: 09/27/21 11:28 09/27/21 11:28 Labs: Abnormal Lab Results - Last 24 Hours (Table) 09/26/21 09/26/21 09/27/21 Range/Units 16:41 20:09 06:18 WBC (3.8-10.6) k/uL Sodium (137-145) mmol/L BUN (7-17) mg/dL Glucose (74-99) mg/dL POC Glucose (mg/dL) 159 H 370 H 120 H (75-99) mg/dL 09/27/21 09/27/21 09/27/21 Range/Units 11:28 11:28 11:47 WBC 16.1 H (3.8-10.6) k/uL Sodium 133 L (137-145) mmol/L BUN 33 H (7-17) mg/dL Glucose 208 H (74-99) mg/dL POC Glucose (mg/dL) 204 H (75-99) mg/dL Microbiology - Last 24 Hours (Table) 09/20/21 14:57 Blood Culture - Final Blood No Growth after 144 hours 09/20/21 14:47 Blood Culture - Final Blood No Growth after 144 hours Assessment and Plan Assessment: Acute on chronic hypoxemic respiratory failure secondary to COVID-19 pneumonia. Patient is vaccinated X 2 doses. Currently requiring 15 L high flow oxygen via nasal cannula. Atrial fibrillation new onset. Chronic hypoxic respiratory failure secondary to interstitial lung disease due to rheumatoid arthritis on 2 L oxygen via nasal cannula. 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 Covid Cocktail,Airvo, anticoagulation with eliquis.encouraged to sit up in chair more compared to sitting up in bed.Prognosis guarded given multiple complex medical issues. The impression and plan of care has been dictated as directed. : I performed a history and examination of this patient, discussed the same with the dictator. I agree with the dictator's note ,documented as a scribe. Any additional findings or plans will be noted.
[2021-09-27 19:52] LABS: Glucose,Whole Blood 280 mg/dL (75-99)
[2021-09-27] MEDS: INSULIN DETEMIR (LEVEMIR) 100 UNIT/ML SYR SQ SCH (21:20)
[2021-09-28] MEDS ORDERED: METOPROLOL TARTRATE 25 MG TAB PO STA (05:53)
[2021-09-28] MEDS: INSULIN ASPART (NovoLOG) 100 UNIT/ML VIAL SQ SCH ×4 (05:58→20:39)
[2021-09-28 06:30] LABS: Glucose,Whole Blood 122 mg/dL (75-99)
[2021-09-28] MEDS: ASCORBIC ACID 500 MG TAB PO SCH (08:10)
[2021-09-28] MEDS: CHOLECALCIFEROL 125 MCG (5000 IU) TABLET PO SCH (08:10)
[2021-09-28] MEDS: DEXAMETHASONE SOD PHOSPHATE 10 MG/ML 1 ML VIAL IVP SCH (08:10)
[2021-09-28] MEDS: METOPROLOL SUCCINATE (ER) 25 MG TAB.ER.24H PO SCH (08:10)
[2021-09-28] MEDS: ZINC SULFATE 220 MG CAP PO SCH (08:10)
[2021-09-28] MEDS: APIXABAN 5 MG TAB PO SCH ×2 (08:11→20:39)
[2021-09-28] MEDS: ALBUTEROL HFA INHALER INHALATION PRN ×3 (08:15→16:02)
[2021-09-28 11:34] LABS: Glucose,Whole Blood 256 mg/dL (75-99)
--- NOTE | 2021-09-28 13:07 | P.PN ---
Subjective 09/28/2021 Patient is admitted for: 90 pneumonia and patient remains on airvo with the oxygen flow rate of 55 L/m and FiO2 of 70%. Patient feels much better. Constitutional: Denied any fatigue denied any fever. Cardio vascular: denied any chest pain, palpitations Gastrointestinal denied any nausea vomiting Pulmonary: Denied any shortness of breath cough Neurologic denied any new focal deficits All inpatient medications were reviewed and appropriate changes in these medications as dictated in the interval history and assessment and plan. PHYSICAL EXAMINATION: GENERAL: The patient is alert and oriented x3, not in any acute distress. Well developed, well nourished. On oxygen as mentioned above HEENT: Pupils are round and equally reacting to light. EOMI. No scleral icterus. No conjunctival pallor. Normocephalic, atraumatic. No pharyngeal erythema. No thyromegaly. CARDIOVASCULAR: S1 and S2 present. No murmurs, rubs, or gallops. PULMONARY: Chest is clear to auscultation, no wheezing or crackles. ABDOMEN: Soft, nontender, nondistended, normoactive bowel sounds. No palpable organomegaly. MUSCULOSKELETAL: No joint swelling or deformity. EXTREMITIES: No cyanosis, clubbing, or pedal edema. NEUROLOGICAL: Gross neurological examination did not reveal any focal deficits. SKIN: No rashes. Assessment and plan Acute on chronic hypoxic respiratory failure secondary to COVID-19 pneumonia. On above-mentioned oxygen Atrial fibrillation new onset. On anticoagulation Chronic hypoxic respiratory failure secondary to interstitial lung disease due to rheumatoid arthritis on 2 L oxygen via nasal cannula. 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 with Eliquis History of DVT left lower extremity COPD, without any acute exacerbation Objective - Vital Signs Vital signs: Vital Signs Temp 97.8 F 09/28/21 12:00 Pulse 67 09/28/21 12:00 Resp 20 09/28/21 12:00 BP 103/60 09/28/21 12:00 Pulse Ox 90 L 09/28/21 12:00 Intake & Output 09/27/21 09/28/21 09/28/21 18:59 06:59 18:59 Intake Total 360 Output Total 500 Balance -140 Intake: Oral 360 Output: Urine 500 Other: Voiding Method Bedside Commode Bedside Commode # Voids 0 - Labs CBC & Chem 7: 09/27/21 11:28 09/27/21 11:28 Labs: Abnormal Lab Results - Last 24 Hours (Table) 09/27/21 09/27/21 09/28/21 Range/Units 16:27 19:51 05:49 POC Glucose (mg/dL) 266 H 280 H 122 H (75-99) mg/dL 09/28/21 Range/Units 11:33 POC Glucose (mg/dL) 256 H (75-99) mg/dL
--- NOTE | 2021-09-28 13:38 | P.PN ---
Subjective Progress Note Date: 09/28/21 09/23/2021, seeing this patient for a follow-up. The patient is a case of pulmonary fibrosis secondary to underlying rheumatoid arthritis and the patient has chronic interstitial lung disease/fibrosis involving the lung bases. The patient also has had a previous history of masses/submassive unprovoked p ulmonary embolism requiring catheter directed thrombolytic therapy and the patient has been on long-term and coagulation since. The patient is also known to have COPD, previous history of pulmonary embolism, produces 7 left lower extremity DVT for which she has been maintained on long-term medical condition with Eliquis. In terms of her rheumatoid arthritis, due to financial problems, she has been on a combination of Humira and Xaljenz pparently both of these medications have been discontinued.. The patient is currently hospitalized for an acute hypoxic respiratory failure secondary to COVID 19 related infection with interval worsening in her oxygenation. She is currently on Decadron. S he'll phone and to coagulation with Lovenox. The patient had negative blood cultures. Blood work is essentially stable with a normal renal function. The patient remains on a 10 L oxygen by nasal cannula in addition to the 100% nonrebreather facemask on her current pulse ox on a 96%. She is afebrile. The white cell count is at 10.1 with hemoglobin of 10.8 and a platelet count of 281. BUN is at 14 with a creatinine of 0.7. Sodium level is at 137 . The TSH is at 0.224 with a free T4 of 1.4. LDH level was 1058 with a CRP level of 3.7. Rest of the blood work and electrodes are all within normal limits. the BUN is a 40 with a creatinine of 0.76. 09/24/2021, the patient is quite stable. She remains on high flow oxygen at 15 L along with 100% on facemask. The patient denies having any worsening shortness of breath. She has occasional cough. No significant sputum production. The patient is known to me. The patient has history of ILD, rheumatoid lung and the patient also has history of unprovoked submassive pulmonary embolism. She was receiving Imuran suppression outpatient basis. For now, the patient remains on Decadron 6 mg IV every 24 hours. The patient is also on long-term medical condition with Eliquis 5 mg by mouth twice a day. The patient has a LDH level of 1058 with a CRP level of 3.7. No altered mentation. No other new complaints otherwise for now. His resting comfortably in bed. I made the suggestion suspicious patient to high flow oxygen and discontinue the 100% nonrebreather facemask. 09/25/2021, seeing the patient for a follow-up. The patient is currently on Airvo and the patient has been placed on Airvo at 55 L with an FiO2 of 70%. Her current pulse ox around 94-98%. She seems to be much more comfortable on Airvo compared to the 100% on a beta facemask. The patient is not having any worsening shortness of breath. She has labored breathing but she is not any worse compared to yesterday. The patient is afebrile. The patient's h emodynamically stable. The patient is able to sit up on a chair. No new labs are available from today. Blood sugars of 218. No recent chest x-ray. Inflammatory markers and the blood work and a chest x-ray will be repeated for tomorrow. Remains on Decadron 6 mg IV every 24 hours. He remains on Eliquis 5 mg by mouth twice a day. Remains on examination of vitamin C and vitamin D and zinc. No other significant events overnight pH is communicating and altered mentation. 09/26/2021, the patient is being seen for a follow-up. The patient remains on high flow oxygen with Airvo 55 L and FiO2 of 70% and the same setting as yesterday. Pulse ox is ranging between 88-91%. She reports essentially being the same. No worsening shortness of breath since yesterday. Currently stable. Breathing is nonlabored according to her. The patient remains on treatment with Decadron 6 mg IV every 24 hours. She is also on long-term medical condition with Eliquis 5 mg by mouth twice a day. Her white cell count is at 11 with a hemoglobin of 11.8. D-dimer is at 5.2. Sodium is at 135 with a potassium level of 4.4 and a mean of 24 with a creatinine of 0.7. LFTs are normal. LDH level is at a 853 and this is improved from 1058 on 09/23/2021. CRP level is down to 0.7 which is also improved. She is afebrile. She is hemodynamically stable. She is known to fibrosis related to ILD/RA. She has noticed immunosuppression treatment on outpatient basis. She has also COPD. 09/27/2021, seeing the patient for a follow-up. The patient remains on high flow oxygen 55 L with an FiO2 of 70% which is essentially the same setting as yesterday. Doing well. Pulse ox and order of 93%. No worsening shortness of breath. Resting comfortable. She feels clinically improved. Oxygenation remains unchanged however. The blood work from today shows a sodium 133, BUN is at 33 with a creatinine of 0.8 and a blood sugars at 28. The white cell count is 16. Most recent LDH level is at a 53. CRP level is at 0.7. D-dimer is at 5.2. She remains on Decadron. She remains on Eliquis 5 mg by mouth twice a day. She has previous history of DVT and pulmonary embolism, unprovoked and the patient has been lifelong anticoagulation. 09/28/2021, the patient is stable. Remains on Airvo 55 L an FiO2 of 70%. No change in her condition in general. She is still in bed. She remains on Decadron 6 g IV every 24 hours. She is also on multivitamins pH is taking Levemir insulin 10 units for blood sugar control and she is also on a sliding scale coverage. No other significant events overnight. Her pulse ox is currently at 90%. She is afebrile. No new labs. Labs from yesterday was noted. LDH wasn't a 53 with a CRP of 0.7. D-dimer was at 5.2. She remains on long-term articulation with Eliquis. Essentially, no major change in her condition. Objective - Vital Signs Vital signs: Vital Signs Temp 97.8 F 09/28/21 12:00 Pulse 67 09/28/21 12:00 Resp 20 09/28/21 12:00 BP 103/60 09/28/21 12:00 Pulse Ox 90 L 09/28/21 12:00 Intake & Output 09/27/21 09/28/21 09/28/21 18:59 06:59 18:59 Intake Total 360 Output Total 500 Balance -140 Intake: Oral 360 Output: Urine 500 Other: Voiding Method Bedside Commode Bedside Commode # Voids 0 - Exam No acute distress, oriented 3. Currently on nonrebreather mask. She will use Airvo 55 L with an FiO2 of 70%. HEENT examination is grossly unremarkable. Neck supple. Full range of motion. No adenopathy thyromegaly or neck vein distention. Cardiovascular examination reveals regular rhythm rate. S1-S2 normal. No S3 or S4. No discernible murmur noted. Heart rate 71 bpm. Heart sounds are distant. Lungs reveal bibasilar rhonchi and crackles. The patient has coarse crackles in lung bases bilaterally especially in the lower lung hurt bilaterally. Breath sounds equal. There are no wheezes. Abdomen soft bowel sounds are heard. No masses or tenderness. Extremities are intact. No cyanosis clubbing or edema. The patient has joint deformities related to rheumatoid arthritis. Skin is without rash or lesion. Neurologic examination is brief but nonfocal. - Labs CBC & Chem 7: 09/27/21 11:28 09/27/21 11:28 Labs: Abnormal Lab Results - Last 24 Hours (Table) 09/27/21 09/27/21 09/28/21 Range/Units 16:27 19:51 05:49 POC Glucose (mg/dL) 266 H 280 H 122 H (75-99) mg/dL 09/28/21 Range/Units 11:33 POC Glucose (mg/dL) 256 H (75-99) mg/dL Assessment and Plan Plan: Acute on chronic hypoxemic respiratory failure secondary to coronavirus associat ed pneumonia. The patient has evidence of chronic interstitial lung disease and there has been interval worsening in her oxygenation. The COVID 19 related infection/pneumonia. As such, her hypoxic respiratory failure is multifactorial and a decompensating fact that is the acute community related pneumonia. Note that the patient is also been immunosuppressed with a combination of Humira and Xalgenz on outpatient basis. Currently on Decadron. Currently on anticoagulation with Lovenox. The patient is clinically stable. The patient placed on Airvo with a flow of 55 L an FiO2 of 70%. The patient is comfortable on the setting. Clinically stable and unchanged compared to yesterday. Infl ammatory markers are all improving and the patient remains on anticoagulation with Eliquis. She remains clinically stable on today's evaluation without a change in her condition Chronic hypoxemic respiratory failure, secondary to interstitial lung disease, with possible rheumatoid arthritis associated pulmonary fibrosis. History of rheumatoid arthritis. History of subacute massive pulmonary embolism, on lifelong anticoagulation. The patient to maintain on Eliquis on outpatient basis History of left lower extremity DVT. History of COPD, secondary to chronic tobacco dependence. Plan: Continue Airvo for now with a flow of 55 L an FiO2 of 70% , may try to attempt to wean the FiO2 slightly Repeat inflammatory markers in the morning, levels are improving Continue Decadron 6 mg IV every 24 hours Continue to coagulation with Eliquis Patient is a full CODE STATUS We'll continue to follow
[2021-09-28 17:06] LABS: Glucose,Whole Blood 190 mg/dL (75-99)
[2021-09-28] MEDS: INSULIN DETEMIR (LEVEMIR) 100 UNIT/ML SYR SQ SCH (20:39)
[2021-09-28 20:43] LABS: Glucose,Whole Blood 240 mg/dL (75-99)
[2021-09-29 06:42] LABS: Glucose,Whole Blood 83 mg/dL (75-99)
[2021-09-29] MEDS: INSULIN ASPART (NovoLOG) 100 UNIT/ML VIAL SQ SCH ×4 (06:56→20:56)
[2021-09-29] MEDS: ZINC SULFATE 220 MG CAP PO SCH (07:57)
[2021-09-29] MEDS: APIXABAN 5 MG TAB PO SCH ×2 (07:57→20:38)
[2021-09-29] MEDS: DEXAMETHASONE SOD PHOSPHATE 10 MG/ML 1 ML VIAL IVP SCH (07:57)
[2021-09-29] MEDS: METOPROLOL SUCCINATE (ER) 25 MG TAB.ER.24H PO SCH (07:57)
[2021-09-29] MEDS: ASCORBIC ACID 500 MG TAB PO SCH (07:57)
[2021-09-29] MEDS: CHOLECALCIFEROL 125 MCG (5000 IU) TABLET PO SCH (07:57)
--- NOTE | 2021-09-29 09:42 | P.PN ---
Subjective 09/28/2021 Patient is admitted for: 90 pneumonia and patient remains on airvo with the oxygen flow rate of 55 L/m and FiO2 of 70%. Patient feels much better. 09/29/2021 Patient has slight improvement in oxygen requirements I'm expecting that patient was significantly improved next 3-4 days and probably bring her oxygen down to around 5 L. Patient is bit hyponatremic will be started on gentle hydration. Constitutional: Denied any fatigue denied any fever. Cardio vascular: denied any chest pain, palpitations Gastrointestinal denied any nausea vomiting Pulmonary: Denied any shortness of breath cough Neurologic denied any new focal deficits All inpatient medications were reviewed and appropriate changes in these medications as dictated in the interval history and assessment and plan. PHYSICAL EXAMINATION: GENERAL: The patient is alert and oriented x3, not in any acute distress. Well developed, well nourished. On oxygen as mentioned above HEENT: Pupils are round and equally reacting to light. EOMI. No scleral icterus. No conjunctival pallor. Normocephalic, atraumatic. No pharyngeal erythema. No thyromegaly. CARDIOVASCULAR: S1 and S2 present. No murmurs, rubs, or gallops. PULMONARY: Chest is clear to auscultation, no wheezing or crackles. ABDOMEN: Soft, nontender, nondistended, normoactive bowel sounds. No palpable or ganomegaly. MUSCULOSKELETAL: No joint swelling or deformity. EXTREMITIES: No cyanosis, clubbing, or pedal edema. NEUROLOGICAL: Gross neurological examination did not reveal any focal deficits. SKIN: No rashes. Assessment and plan Acute on chronic hypoxic respiratory failure secondary to COVID-19 pneumonia. On above-mentioned oxygen Atrial fibrillation new onset. On anticoagulation Chronic hypoxic respiratory failure secondary to interstitial lung disease due to rheumatoid arthritis on 2 L oxygen via nasal cannula. 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 with Eliquis History of DVT left lower extremity COPD, without any acute exacerbation Objective - Vital Signs Vital signs: Vital Signs Temp 97.7 F 09/29/21 03:30 Pulse 58 L 09/29/21 03:30 Resp 20 09/29/21 03:30 BP 115/63 09/29/21 03:30 Pulse Ox 95 09/29/21 03:30 Intake & Output 09/28/21 09/29/21 09/29/21 18:59 06:59 18:59 Other: Voiding Method Bedside Commode # Voids 2 1 - Labs CBC & Chem 7: 09/27/21 11:28 09/27/21 11:28 Labs: Abnormal Lab Results - Last 24 Hours (Table) 09/28/21 09/28/21 09/28/21 Range/Units 11:33 17:05 20:36 POC Glucose (mg/dL) 256 H 190 H 240 H (75-99) mg/dL
[2021-09-29] MEDS: ALBUTEROL HFA INHALER INHALATION PRN ×2 (10:50→15:28)
[2021-09-29 11:43] LABS: Glucose,Whole Blood 118 mg/dL (75-99)
--- NOTE | 2021-09-29 14:32 | P.PN ---
Subjective Progress Note Date: 09/29/21 09/23/2021, seeing this patient for a follow-up. The patient is a case of pulmonary fibrosis secondary to underlying rheumatoid arthritis and the patient has chronic interstitial lung disease/fibrosis involving the lung bases. The patient also has had a previous history of masses/submassive unprovoked p ulmonary embolism requiring catheter directed thrombolytic therapy and the patient has been on long-term and coagulation since. The patient is also known to have COPD, previous history of pulmonary embolism, produces 7 left lower extremity DVT for which she has been maintained on long-term medical condition with Eliquis. In terms of her rheumatoid arthritis, due to financial problems, she has been on a combination of Humira and Xaljenz pparently both of these medications have been discontinued.. The patient is currently hospitalized for an acute hypoxic respiratory failure secondary to COVID 19 related infection with interval worsening in her oxygenation. She is currently on Decadron. S he'll phone and to coagulation with Lovenox. The patient had negative blood cultures. Blood work is essentially stable with a normal renal function. The patient remains on a 10 L oxygen by nasal cannula in addition to the 100% nonrebreather facemask on her current pulse ox on a 96%. She is afebrile. The white cell count is at 10.1 with hemoglobin of 10.8 and a platelet count of 281. BUN is at 14 with a creatinine of 0.7. Sodium level is at 137 . The TSH is at 0.224 with a free T4 of 1.4. LDH level was 1058 with a CRP level of 3.7. Rest of the blood work and electrodes are all within normal limits. the BUN is a 40 with a creatinine of 0.76. 09/24/2021, the patient is quite stable. She remains on high flow oxygen at 15 L along with 100% on facemask. The patient denies having any worsening shortness of breath. She has occasional cough. No significant sputum production. The patient is known to me. The patient has history of ILD, rheumatoid lung and the patient also has history of unprovoked submassive pulmonary embolism. She was receiving Imuran suppression outpatient basis. For now, the patient remains on Decadron 6 mg IV every 24 hours. The patient is also on long-term medical condition with Eliquis 5 mg by mouth twice a day. The patient has a LDH level of 1058 with a CRP level of 3.7. No altered mentation. No other new complaints otherwise for now. His resting comfortably in bed. I made the suggestion suspicious patient to high flow oxygen and discontinue the 100% nonrebreather facemask. 09/25/2021, seeing the patient for a follow-up. The patient is currently on Airvo and the patient has been placed on Airvo at 55 L with an FiO2 of 70%. Her current pulse ox around 94-98%. She seems to be much more comfortable on Airvo compared to the 100% on a beta facemask. The patient is not having any worsening shortness of breath. She has labored breathing but she is not any worse compared to yesterday. The patient is afebrile. The patient's h emodynamically stable. The patient is able to sit up on a chair. No new labs are available from today. Blood sugars of 218. No recent chest x-ray. Inflammatory markers and the blood work and a chest x-ray will be repeated for tomorrow. Remains on Decadron 6 mg IV every 24 hours. He remains on Eliquis 5 mg by mouth twice a day. Remains on examination of vitamin C and vitamin D and zinc. No other significant events overnight pH is communicating and altered mentation. 09/26/2021, the patient is being seen for a follow-up. The patient remains on high flow oxygen with Airvo 55 L and FiO2 of 70% and the same setting as yesterday. Pulse ox is ranging between 88-91%. She reports essentially being the same. No worsening shortness of breath since yesterday. Currently stable. Breathing is nonlabored according to her. The patient remains on treatment with Decadron 6 mg IV every 24 hours. She is also on long-term medical condition with Eliquis 5 mg by mouth twice a day. Her white cell count is at 11 with a hemoglobin of 11.8. D-dimer is at 5.2. Sodium is at 135 with a potassium level of 4.4 and a mean of 24 with a creatinine of 0.7. LFTs are normal. LDH level is at a 853 and this is improved from 1058 on 09/23/2021. CRP level is down to 0.7 which is also improved. She is afebrile. She is hemodynamically stable. She is known to fibrosis related to ILD/RA. She has noticed immunosuppression treatment on outpatient basis. She has also COPD. 09/27/2021, seeing the patient for a follow-up. The patient remains on high flow oxygen 55 L with an FiO2 of 70% which is essentially the same setting as yesterday. Doing well. Pulse ox and order of 93%. No worsening shortness of breath. Resting comfortable. She feels clinically improved. Oxygenation remains unchanged however. The blood work from today shows a sodium 133, BUN is at 33 with a creatinine of 0.8 and a blood sugars at 28. The white cell count is 16. Most recent LDH level is at a 53. CRP level is at 0.7. D-dimer is at 5.2. She remains on Decadron. She remains on Eliquis 5 mg by mouth twice a day. She has previous history of DVT and pulmonary embolism, unprovoked and the patient has been lifelong anticoagulation. 09/28/2021, the patient is stable. Remains on Airvo 55 L an FiO2 of 70%. No change in her condition in general. She is still in bed. She remains on Decadron 6 g IV every 24 hours. She is also on multivitamins pH is taking Levemir insulin 10 units for blood sugar control and she is also on a sliding scale coverage. No other significant events overnight. Her pulse ox is currently at 90%. She is afebrile. No new labs. Labs from yesterday was noted. LDH wasn't a 53 with a CRP of 0.7. D-dimer was at 5.2. She remains on long-term articulation with Eliquis. Essentially, no major change in her condition. 09/29/2021, the patient is on Airvo 50 L of an FiO2 of 60%. Doing well. No significant shortness of breath and she feels that she is gradually improving. She remains on Decadron 6 mg IV every 24 hours. No new complaints otherwise for now. She remains on long-term articulation with Eliquis. No significant hyperglycemia. No new labs otherwise from today. No altered mentation. No chest pain. No cough or sputum production. Objective - Vital Signs Vital signs: Vital Signs Temp 97.8 F 09/29/21 08:00 Pulse 68 09/29/21 12:00 Resp 20 09/29/21 12:00 BP 120/62 09/29/21 12:00 Pulse Ox 90 L 09/29/21 12:00 Intake & Output 09/28/21 09/29/21 09/29/21 18:59 06:59 18:59 Other: Voiding Method Bedside Commode # Voids 2 1 - Exam No acute distress, oriented 3. Currently on nonrebreather mask. She will use Airvo 15 L with an FiO2 of 60% HEENT examination is grossly unremarkable. Neck supple. Full range of motion. No adenopathy thyromegaly or neck vein distention. Cardiovascular examination reveals regular rhythm rate. S1-S2 normal. No S3 or S4. No discernible murmur noted. Heart sounds are distant. Lungs reveal bibasilar rhonchi and crackles. The patient has coarse crackles in lung bases bilaterally especially in the lower lung hurt bilaterally. Breath sounds equal. There are no wheezes. Abdomen soft bowel sounds are heard. No masses or tenderness. Extremities are intact. No cyanosis clubbing or edema. The patient has joint deformities related to rheumatoid arthritis. Skin is without rash or lesion. Neurologic examination is brief but nonfocal. - Labs CBC & Chem 7: 09/27/21 11:28 09/27/21 11:28 Labs: Abnormal Lab Results - Last 24 Hours (Table) 09/28/21 09/28/21 09/29/21 Range/Units 17:05 20:36 11:42 POC Glucose (mg/dL) 190 H 240 H 118 H (75-99) mg/dL Assessment and Plan Plan: Acute on chronic hypoxemic respiratory failure secondary to coronavirus associ ated pneumonia. The patient has evidence of chronic interstitial lung disease and there has been interval worsening in her oxygenation. The COVID 19 related infection/pneumonia. As such, her hypoxic respiratory failure is multifactorial and a decompensating fact that is the acute community related pneumonia. Note that the patient is also been immunosuppressed with a combination of Humira and Xalgenz on outpatient basis. Currently on Decadron. Currently on anticoagulation with Lovenox. The patient is clinically stable. The patient placed on Airvo with a flow of 50 L with an FiO2 of 60%. The patient is comfortable on the setting. Clinically stable and unchanged compared to yesterday. Inflammatory markers are all improving and the patient remains on anticoagulation with Eliquis. She remains clinically stable on today's evaluation without a change in her condition. The patient overall is doing well although recovery has been slow. Chronic hypoxemic respiratory failure, secondary to interstitial lung disease, with possible rheumatoid arthritis associated pulmonary fibrosis. History of rheumatoid arthritis. History of subacute massive pulmonary embolism, on lifelong anticoagulation. The patient to maintain on Eliquis on outpatient basis History of left lower extremity DVT. History of COPD, secondary to chronic tobacco dependence. Plan: Continue Airvo for now with a flow of 50 L with an FiO2 of 60%, may try to attempt to wean the FiO2 slightly Repeat inflammatory markers in the morning, levels are improving Continue Decadron 6 mg IV every 24 hours Continue to coagulation with Eliquis Patient is a full CODE STATUS We'll continue to follow
[2021-09-29 16:40] LABS: Glucose,Whole Blood 347 mg/dL (75-99)
[2021-09-29] MEDS: SODIUM CHLORIDE 0.9% 1,000 ML IV SCH ×2 (18:05→22:57)
[2021-09-29] MEDS: INSULIN DETEMIR (LEVEMIR) 100 UNIT/ML SYR SQ SCH (20:56)
[2021-09-29 21:19] LABS: Glucose,Whole Blood 99 mg/dL (75-99)
[2021-09-30 06:20] LABS: Glucose,Whole Blood 102 mg/dL (75-99)
[2021-09-30] MEDS: INSULIN ASPART (NovoLOG) 100 UNIT/ML VIAL SQ SCH ×4 (06:22→21:13)
[2021-09-30] MEDS: METOPROLOL SUCCINATE (ER) 25 MG TAB.ER.24H PO SCH (08:41)
[2021-09-30] MEDS: APIXABAN 5 MG TAB PO SCH ×2 (08:41→21:13)
[2021-09-30] MEDS: DEXAMETHASONE SOD PHOSPHATE 10 MG/ML 1 ML VIAL IVP SCH (08:41)
[2021-09-30] MEDS: ZINC SULFATE 220 MG CAP PO SCH (08:41)
[2021-09-30] MEDS: ASCORBIC ACID 500 MG TAB PO SCH (08:41)
[2021-09-30] MEDS: CHOLECALCIFEROL 125 MCG (5000 IU) TABLET PO SCH (08:41)
[2021-09-30] MEDS: ALBUTEROL HFA INHALER INHALATION PRN ×3 (09:14→20:49)
--- NOTE | 2021-09-30 11:44 | P.PN ---
Subjective Progress Note Date: 09/30/21 This is a 71-year-old female admitted with acute Covid pneumonia, acute on chronic hypoxic respiratory failure, new onset atrial fibrillation and multiple other medical issues. Patient developed atrial fibrillation with RVR last night transferred to telemetry and converted back to sinus rhythm prior to initiation of Cardizem drip. Anticoagulated with Eliquis. Denies chest pain, palpitations or chest pressure. Maintained on covid cocktail. Continues on 15 L high flow nasal cannula to maintain O2 sats in the 90s. Afebrile. Labs pending. 09/24/2021 maintained on COVID cocktail. Anticoagulated with Eliquis. continues on high flow nasal cannula 15 L/100% facemask maintaining O2 sats in the low 9 0s. Reports nonproductive cough. Denies increased shortness of breath.LDL decreased to 1058, CRP down to 3.7. Maintain sinus rhythm. Denies chest pain, chest pressure or palpitations. Echo pending. 09/25/21 maintaining O2 sats in the low 90s on airflow 55/75 FIO2. Continues on covid cocktail. Sitting up in bed, denies chest pain, chest pressure, or cough. Denies nausea vomiting or diarrhea. Reports she's freezing -room is cold. Afebrile. Limited echo reporting normal LV function, right ventricle mild to moderately enlarged. 09/26/2021 continues on Covid Cocktail. continues to feel well, denies cough. Afebrile, denies any chills. Maintaining O2 sats in the low 90s to high 80s on airvo 55 L/70% Fio2. Denies any chest pain, chest pressure palpitations or increasing shortness of breath. Afebrile, d-dimer 5.2 LDH, CRP improving. Chest x-ray reports unchanged. 09/27/2021 Feels better today ,reports able to deep breath easier. Denies cough.Maintaining O2 sats in the 90s on flow rate 55/ 70 Fio2. Continues on Covid cocktail .Afebrile, WBC 16.1. Anticoagulated on Eliquis. 09/30/2021 maintained on airflow, flow rate 50, FiO2 55%, maintaining O2 sat in the low 90s. Denies any increased shortness of breath.Denies nausea vomiting, denies cough. Afebrile. Complains of constipation. Denies chest pain, palpitations or chest pressure. Denies lightheadedness dizziness or focal deficits. Objective - Vital Signs Vital signs: Vital Signs Temp 97.6 F 09/30/21 08:00 Pulse 84 09/30/21 08:00 Resp 18 09/30/21 08:00 BP 111/63 09/30/21 08:00 Pulse Ox 92 L 09/30/21 08:00 Intake & Output 09/29/21 09/30/21 09/30/21 18:59 06:59 18:59 Intake Total 660 Output Total 500 Balance -500 660 Intake: Oral 660 Output: Urine 500 Other: Voiding Method Bedside Commode # Voids 1 1 # Bowel Movements 1 - Exam PHYSICAL EXAMINATION: GENERAL: Alert and oriented 3 ,sitting up in bed comfortably. HEENT: Normocephalic. Neck is supple. Pupils reactive. Neck: Supple, no JVD CHEST EXAMINATION: Nonlabored, Symmetrical expansion. Diminished air sounds. CARDIAC: Normal S1, S2 with no gallops. No murmurs. ABDOMEN: Soft. Bowel sounds normal. No organomegaly. No guarding, +BS. Extremities: no edema. No clubbing or cyanosis. Neurological: Cranial nerves II-12 grossly intact .No focal deficits noted Skin: No rash, warm and dry - Labs CBC & Chem 7: 09/27/21 11:28 09/27/21 11:28 Labs: Abnormal Lab Results - Last 24 Hours (Table) 09/29/21 09/29/21 09/30/21 Range/Units 11:42 16:38 06:10 POC Glucose (mg/dL) 118 H 347 H 102 H (75-99) mg/dL Assessment and Plan Assessment: Acute on chronic hypoxemic respiratory failure secondary to COVID-19 pneumonia. Patient is vaccinated X 2 doses. Currently requiring 15 L high flow oxygen via nasal cannula. Atrial fibrillation new onset. Chronic hypoxic respiratory failure secondary to interstitial lung disease due to rheumatoid arthritis on 2 L oxygen via nasal cannula. 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 Follow labs ordered for a.m. Maintain Covid Cocktail,Airvo, anticoagulation with eliquis.Prognosis guarded given multiple complex medical issues. The impression and plan of care has been dictated as directed. : I performed a history and examination of this patient, discussed the same with the dictator. I agree with the dictator's note ,documented as a scribe. Any ad ditional findings or plans will be noted.
[2021-09-30 11:50] LABS: Glucose,Whole Blood 190 mg/dL (75-99)
[2021-09-30 16:31] LABS: Glucose,Whole Blood 139 mg/dL (75-99)
[2021-09-30] MEDS: SODIUM CHLORIDE 0.9% 1,000 ML IV SCH (16:39)
--- NOTE | 2021-09-30 18:09 | P.PN ---
Subjective Progress Note Date: 09/30/21 Principal diagnosis: Acute on chronic hypoxic respiratory failure secondary to COVID-19 pneumonia and underlying interstitial lung disease/rheumatoid lungs. 09/28/2021, the patient is stable. Remains on Airvo 55 L an FiO2 of 70%. No change in her condition in general. She is still in bed. She remains on Decadron 6 g IV every 24 hours. She is also on multivitamins pH is taking Levemir insulin 10 units for blood sugar control and she is also on a sliding scale coverage. No other significant events overnight. Her pulse ox is currently at 90%. She is afebrile. No new labs. Labs from yesterday was noted. LDH wasn't a 53 with a CRP of 0.7. D-dimer was at 5.2. She remains on long-term articulation with Eliquis. Essentially, no major change in her condition. 09/29/2021, the patient is on Airvo 50 L of an FiO2 of 60%. Doing well. No significant shortness of breath and she feels that she is gradually improving. She remains on Decadron 6 mg IV every 24 hours. No new complaints otherwise for now. She remains on long-term articulation with Eliquis. No significant hyperglycemia. No new labs otherwise from today. No altered mentation. No chest pain. No cough or sputum production. Reevaluated today on 09/30/2021, patient remains on high flow oxygen, on airvo and nonrebreather mask. And O2 saturation is 96%. Patient is feeling better today, hardly any cough, but she does have shortness of breath. No labs were noted today. Last chest x-ray was from 09/26 hence a follow-up chest x-ray was ordered to be done tomorrow. Objective - Vital Signs Vital signs: Vital Signs Temp 97.4 F L 09/30/21 17:12 Pulse 74 09/30/21 17:12 Resp 20 09/30/21 17:12 BP 118/64 09/30/21 17:12 Pulse Ox 96 09/30/21 17:12 Intake & Output 09/29/21 09/30/21 09/30/21 18:59 06:59 18:59 Intake Total 900 Output Total 500 Balance -500 900 Intake: Oral 900 Output: Urine 500 Other: Voiding Method Bedside Commode # Voids 1 1 3 # Bowel Movements 1 2 - Exam Physical Exam: Revealed a 71-year-old female in no distress, she is on high flow oxygen utilizing airvo and nonrebreather mask. Head: Atraumatic, normocephalic. HEENT:[Neck is supple.] [No neck masses.] [No thyromegaly.] [No JVD.] Chest: [Symmetrical chest expansion, crackles at the bases. No rhonchi and no wheezes. Cardiac Exam: [Normal S1 and S2, no S3 gallop, no murmur.] Abdomen: [Soft, nontender, no megaly, no rebound, no guarding, normal bowel sounds.] Extremities: [No clubbing, no edema, no cyanosis.] Neurological Exam: [No focal neurologic deficit.] Psychiatric: Normal mood affect and normal mental status examination. Skin: No rashes. - Labs CBC & Chem 7: 09/27/21 11:28 09/27/21 11:28 Labs: Abnormal Lab Results - Last 24 Hours (Table) 09/30/21 09/30/21 09/30/21 Range/Units 06:10 11:43 16:29 POC Glucose (mg/dL) 102 H 190 H 139 H (75-99) mg/dL Assessment and Plan Assessment: Impression: Acute on chronic hypoxic respiratory failure secondary to COVID-19 pneumonia and underlying interstitial lung disease/rheumatoid lungs. 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 Recommendation: Continue oxygen and titrate accordingly Continue to monitor inflammatory markers. Continue Decadron. Continue Eliquis. We'll continue to follow not quite ready for any discharge planning. Time with Patient: Less than 30
[2021-09-30 20:19] LABS: Glucose,Whole Blood 192 mg/dL (75-99)
[2021-09-30] MEDS: SENNOSIDES-DOCUSATE SODIUM 1 EACH TAB PO SCH (21:13)
[2021-09-30] MEDS: INSULIN DETEMIR (LEVEMIR) 100 UNIT/ML SYR SQ SCH (21:13)
[2021-10-01] MEDS: SODIUM CHLORIDE 0.9% 1,000 ML IV SCH ×2 (02:47→17:53)
[2021-10-01 05:56] LABS: Glucose,Whole Blood 79 mg/dL (75-99)
[2021-10-01] MEDS: INSULIN ASPART (NovoLOG) 100 UNIT/ML VIAL SQ SCH ×4 (06:09→20:45)
[2021-10-01] MEDS: ALBUTEROL HFA INHALER INHALATION PRN ×5 (08:06→20:56)
--- NOTE | 2021-10-01 08:17 | XR ---
EXAMINATION TYPE: XR chest 1V portable DATE OF EXAM: 10/01/2021 COMPARISON: Chest x-ray 09/26/2021 HISTORY: Shortness of breath TECHNIQUE: Single frontal view of the chest is obtained. FINDINGS: There is no evident pneumothorax or pleural effusion. Interstitial and groundglass opacity changes persist within the lungs. Cardiac mediastinal silhouette is stable. Aorta is dense. There ar e overlying artifacts. IMPRESSION: Similar to prior exam. Correlate for pneumonia, pulmonary fibrosis, there is underlying emphysema
[2021-10-01 08:28] LABS: ALT 31 U/L (4-34); AST 30 U/L (14-36); African American GFR (CKD) >90 (>60 ml/min/1.73 sqM); Albumin 3.3 g/dL (3.5-5.0); Alkaline Phosphatase 81 U/L (38-126); Anion Gap 6 mmol/L; Blood Urea Nitrogen 21 mg/dL (7-17); C Reactive Protein 3.5 mg/dL (<1.0); Calcium 8.6 mg/dL (8.4-10.2); Carbon Dioxide 27 mmol/L (22-30); Chloride 100 mmol/L (98-107); Glucose 92 mg/dL (74-99); LDH 892 U/L (313-618); Non-African American GFR(CKD) 86 (>60 ml/min/1.73 sqM); Sodium 133 mmol/L (137-145); Total Bilirubin 0.8 mg/dL (0.2-1.3); Total Protein 6.8 g/dL (6.3-8.2)
[2021-10-01 08:46] LABS: Basophils % (A) 0 %; Eosinophils # (A) 0.1 k/uL (0-0.7); Eosinophils % (A) 0 %; HCT 41.2 % (34.0-46.0); HGB 12.7 gm/dL (11.4-16.0); Hypochromasia Moderate; Lymphocytes # (A) 0.6 k/uL (1.0-4.8); Lymphocytes % (A) 5 %; MCH 28.4 pg (25.0-35.0); MCHC 30.7 g/dL (31.0-37.0); MCV 92.4 fL (80.0-100.0); Mean Platelet Volume 8.5; Monocytes # (A) 0.4 k/uL (0-1.0); Monocytes % (A) 3 %; Neutrophils # (A) 11.5 k/uL (1.3-7.7); Neutrophils % (A) 91 %; Platelet Count 330 k/uL (150-450); RBC 4.46 m/uL (3.80-5.40); RDW 15.3 % (11.5-15.5); WBC 12.7 k/uL (3.8-10.6)
[2021-10-01] MEDS: METOPROLOL SUCCINATE (ER) 25 MG TAB.ER.24H PO SCH (09:59)
[2021-10-01] MEDS: APIXABAN 5 MG TAB PO SCH ×2 (09:59→20:45)
[2021-10-01] MEDS: ZINC SULFATE 220 MG CAP PO SCH (09:59)
[2021-10-01] MEDS: DEXAMETHASONE SOD PHOSPHATE 10 MG/ML 1 ML VIAL IVP SCH ×2 (09:59→20:45)
[2021-10-01] MEDS: CHOLECALCIFEROL 125 MCG (5000 IU) TABLET PO SCH (09:59)
[2021-10-01] MEDS: ASCORBIC ACID 500 MG TAB PO SCH (09:59)
[2021-10-01] MEDS: polyethylene glycoL 3350 17 GM POWD.PACK PO SCH (10:06)
[2021-10-01 11:37] LABS: Glucose,Whole Blood 174 mg/dL (75-99)
--- NOTE | 2021-10-01 12:10 | P.PN ---
Subjective Progress Note Date: 10/01/21 Principal diagnosis: COVID-19 pneumonia On 10/01/2021 patient seen in follow-up on selective care unit, she currently remains on irritable at 50% FiO2 of 50% and a nonrebreather mask, and her pulse ox is 94%, still continues to require high flow oxygen, however she denies any w orsening dyspnea, patient is able to talk in full sentences, she has been speaking quite extensively on the phone, tolerates it quite well. However she states her chest feels a little tight today and she feels as if she cannot take a deep breath. No fever or chills, vital signs have been stable, no cough, no phlegm production, no hemoptysis. She currently remains on Decadron 6 mg daily, she remains on multivitamins, she is on oral anticoagulation in the form of Eliquis. Sounds reveal diffuse coarse crackles, follow-up chest x-ray today showing interstitial and groundglass opacities persisting within the lungs. No change from prior exam. His labs have been reviewed, her white blood cell count was 12.7, hemoglobin is 12.7, sodium is 133, rest of electrolytes were within normal limits, B1 is 21 creatinine 0.72. Inflammatory markers are improving, LDH is 892, and CRP is 3.5 on today's labs, denies any nausea vomiting or diarrhea, she is tolerating oral intake. Objective - Vital Signs Vital signs: Vital Signs Temp 97.5 F L 10/01/21 08:00 Pulse 85 10/01/21 08:00 Resp 20 10/01/21 08:00 BP 99/68 10/01/21 08:00 Pulse Ox 94 L 10/01/21 08:05 Intake & Output 09/30/21 10/01/21 10/01/21 18:59 06:59 18:59 Intake Total 1140 500 Balance 1140 500 Intake: Oral 1140 500 Other: Voiding Method Bedside Commode Bedside Commode # Voids 3 1 # Bowel Movements 2 1 - Exam GENERAL EXAM: Alert, very pleasant, 71-year-old white female, on Airvo at 50 L and FiO2 of 50% and 100% nonrebreather mask with a pulse ox of 94% comfortable in no apparent distress. HEAD: Normocephalic/atraumatic. EYES: Normal reaction of pupils, equal size. Conjunctiva pink, sclera white. NOSE: Clear with pink turbinates. THROAT: No erythema or exudates. NECK: No masses, no JVD, no thyroid enlargement, no adenopathy. CHEST: No chest wall deformity. Symmetrical expansion. LUNGS: Equal air entry with diffuse coarse crackles bilaterally CVS: Regular rate and rhythm, normal S1 and S2, no gallops, no murmurs, no rubs ABDOMEN: Soft, nontender. No hepatosplenomegaly, normal bowel sounds, no guarding or rigidity. EXTREMITIES: No clubbing, no edema, no cyanosis, 2+ pulses and upper and lower extremities. MUSCULOSKELETAL: Muscle strength and tone normal. SPINE: No scoliosis or deformity SKIN: No rashes CENTRAL NERVOUS SYSTEM: Alert and oriented -3. No focal deficits, tone is normal in all 4 extremities. PSYCHIATRIC: Alert and oriented -3. Appropriate affect. Intact judgment and insight. - Labs CBC & Chem 7: 10/01/21 07:44 10/01/21 07:44 Labs: Abnormal Lab Results - Last 24 Hours (Table) 09/30/21 09/30/21 10/01/21 Range/Units 16:29 20:17 07:44 WBC 12.7 H (3.8-10.6) k/uL MCHC 30.7 L (31.0-37.0) g/dL Neutrophils # 11.5 H (1.3-7.7) k/uL Lymphocytes # 0.6 L (1.0-4.8) k/uL Sodium (137-145) mmol/L BUN (7-17) mg/dL POC Glucose (mg/dL) 139 H 192 H (75-99) mg/dL Lactate Dehydrogenase (313-618) U/L C-Reactive Protein (<1.0) mg/dL Albumin (3.5-5.0) g/dL 10/01/21 10/01/21 Range/Units 07:44 11:35 WBC (3.8-10.6) k/uL MCHC (31.0-37.0) g/dL Neutrophils # (1.3-7.7) k/uL Lymphocytes # (1.0-4.8) k/uL Sodium 133 L (137-145) mmol/L BUN 21 H (7-17) mg/dL POC Glucose (mg/dL) 174 H (75-99) mg/dL Lactate Dehydrogenase 892 H (313-618) U/L C-Reactive Protein 3.5 H (<1.0) mg/dL Albumin 3.3 L (3.5-5.0) g/dL Assessment and Plan Plan: Assessment: #1. Acute on chronic hypoxic respiratory failure secondary to acute COVID-19 related pneumonia and history of interstitial lung disease. Patient had interval worsening in her oxygenation. Patient is chronically Immunosuppressed related to a history of taking Humira and Xeljanz on an outpatient basis. She currently remains on Decadron. She is currently on Airvo at 50 L and FiO2 of 50% and a nonrebreather mask #2. 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 History of rheumatoid arthritis #4. 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 History of left lower extremity DVT #6. History of COPD #7. Former history of chronic tobacco dependence #8. Elevated inflammatory markers related to acute COVID-19 related infection, improving Plan: Patient continues to require high flow oxygen, remains on Airvo and nonrebreather mask No worsening dyspnea or cough Clinically she looks and feels the same We'll try to remove the nonrebreather mask and maintaining her O2 saturations at or above 88-90% on Airvo Continue weaning FiO2 No acute events overnight, continue oral anticoagulation, continue same dose Decadron Encouraged the patient to sit up in a chair, deep breathing and cough We'll continue to follow her clinical course I performed a history & physical examination of the patient and discussed their management with my nurse practitioner, Leslie Garza. I reviewed the nurse practitioner's note and agree with the documented findings and plan of care. Lung sounds are positive for throughout the lung hurt. The findings and the impression was discussed with the patient. I attest to the documentation by the nurse practitioner. Time with Patient: Less than 30
--- NOTE | 2021-10-01 14:07 | P.PN ---
Subjective Progress Note Date: 10/01/21 This is a 71-year-old female admitted with acute Covid pneumonia, acute on chronic hypoxic respiratory failure, new onset atrial fibrillation and multiple other medical issues. Patient developed atrial fibrillation with RVR last night transferred to telemetry and converted back to sinus rhythm prior to initiation of Cardizem drip. Anticoagulated with Eliquis. Denies chest pain, palpitations or chest pressure. Maintained on covid cocktail. Continues on 15 L high flow nasal cannula to maintain O2 sats in the 90s. Afebrile. Labs pending. 09/24/2021 maintained on COVID cocktail. Anticoagulated with Eliquis. continues on high flow nasal cannula 15 L/100% facemask maintaining O2 sats in the low 9 0s. Reports nonproductive cough. Denies increased shortness of breath.LDL decreased to 1058, CRP down to 3.7. Maintain sinus rhythm. Denies chest pain, chest pressure or palpitations. Echo pending. 09/25/21 maintaining O2 sats in the low 90s on airflow 55/75 FIO2. Continues on covid cocktail. Sitting up in bed, denies chest pain, chest pressure, or cough. Denies nausea vomiting or diarrhea. Reports she's freezing -room is cold. Afebrile. Limited echo reporting normal LV function, right ventricle mild to moderately enlarged. 09/26/2021 continues on Covid Cocktail. continues to feel well, denies cough. Afebrile, denies any chills. Maintaining O2 sats in the low 90s to high 80s on airvo 55 L/70% Fio2. Denies any chest pain, chest pressure palpitations or increasing shortness of breath. Afebrile, d-dimer 5.2 LDH, CRP improving. Chest x-ray reports unchanged. 09/27/2021 Feels better today ,reports able to deep breath easier. Denies cough.Maintaining O2 sats in the 90s on flow rate 55/ 70 Fio2. Continues on Covid cocktail .Afebrile, WBC 16.1. Anticoagulated on Eliquis. 09/30/2021 maintained on airflow, flow rate 50, FiO2 55%, maintaining O2 sat in the low 90s. Denies any increased shortness of breath.Denies nausea vomiting, denies cough. Afebrile. Complains of constipation. Denies chest pain, palpitations or chest pressure. Denies lightheadedness dizziness or focal deficits. 10/01/2021 reports doing well, asymptomatic on AIRVO 50% plus nonrebreather, maintaining O2 sats in the 90s. Denies shortness of breath. Denies chest pressure. Reports achy joints-reports common with her rheumatoid arthritis;could be covid related. Denies nausea vomiting or diarrhea. Objective - Vital Signs Vital signs: Vital Signs Temp 97.5 F L 10/01/21 08:00 Pulse 85 10/01/21 08:00 Resp 20 10/01/21 08:00 BP 99/68 10/01/21 08:00 Pulse Ox 94 L 10/01/21 08:05 Intake & Output 09/30/21 10/01/21 10/01/21 18:59 06:59 18:59 Intake Total 1140 500 Balance 1140 500 Weight 68.039 kg Intake: Oral 1140 500 Other: Voiding Method Bedside Commode Bedside Commode # Voids 3 1 # Bowel Movements 2 1 - Exam PHYSICAL EXAMINATION: GENERAL: Alert and oriented 3 ,sitting up in bed comfortably. HEENT: Normocephalic. Neck is supple. Pupils reactive. Neck: Supple, no JVD CHEST EXAMINATION: Nonlabored, Symmetrical expansion. Coarse ,Diminished air sounds. CARDIAC: Normal S1, S2 with no gallops. No murmurs. ABDOMEN: Soft. Bowel sounds normal. No organomegaly. No guarding, +BS. Extremities: no edema. No clubbing or cyanosis. Neurological: Cranial nerves II-12 grossly intact .No focal deficits noted Skin: No rash, warm and dry - Labs CBC & Chem 7: 10/01/21 07:44 10/01/21 07:44 Labs: Abnormal Lab Results - Last 24 Hours (Table) 09/30/21 09/30/21 10/01/21 Range/Units 16:29 20:17 07:44 WBC 12.7 H (3.8-10.6) k/uL MCHC 30.7 L (31.0-37.0) g/dL Neutrophils # 11.5 H (1.3-7.7) k/uL Lymphocytes # 0.6 L (1.0-4.8) k/uL Sodium (137-145) mmol/L BUN (7-17) mg/dL POC Glucose (mg/dL) 139 H 192 H (75-99) mg/dL Lactate Dehydrogenase (313-618) U/L C-Reactive Protein (<1.0) mg/dL Albumin (3.5-5.0) g/dL 10/01/21 10/01/21 Range/Units 07:44 11:35 WBC (3.8-10.6) k/uL MCHC (31.0-37.0) g/dL Neutrophils # (1.3-7.7) k/uL Lymphocytes # (1.0-4.8) k/uL Sodium 133 L (137-145) mmol/L BUN 21 H (7-17) mg/dL POC Glucose (mg/dL) 174 H (75-99) mg/dL Lactate Dehydrogenase 892 H (313-618) U/L C-Reactive Protein 3.5 H (<1.0) mg/dL Albumin 3.3 L (3.5-5.0) g/dL Assessment and Plan Assessment: Acute on chronic hypoxemic respiratory failure secondary to COVID-19 pneumonia. Patient is vaccinated X 2 doses. Currently requiring 15 L high flow oxygen via nasal cannula. Atrial fibrillation new onset. Chronic hypoxic respiratory failure secondary to interstitial lung disease due to rheumatoid arthritis on 2 L oxygen via nasal cannula. Lactic acidosis Rheumatoid arthritis Arthralgia, probably related to rheumatoid arthritis, possibly related to Covid. History of subacute massive PE and is currently on lifelong anticoagulation with Eliquis History of DVT left lower extremity COPD,hx Prior history of smoking Plan: Continue on current medication regime ,monitoring and symptomatic treatment. Covid Cocktail,Airvo, anticoagulation with eliquis.Prognosis guarded given multiple complex medical issues. The impression and plan of care has been dictated as directed. : I performed a history and examination of this patient, discussed the same with the dictator. I agree with the dictator's note ,documented as a scribe. Any additional findings or plans will be noted.
[2021-10-01 16:24] LABS: Glucose,Whole Blood 324 mg/dL (75-99)
[2021-10-01 20:08] LABS: Glucose,Whole Blood 358 mg/dL (75-99)
[2021-10-01] MEDS: SENNOSIDES-DOCUSATE SODIUM 1 EACH TAB PO SCH (20:45)
[2021-10-01] MEDS: INSULIN DETEMIR (LEVEMIR) 100 UNIT/ML SYR SQ SCH (20:45)
[2021-10-02 06:10] LABS: Glucose,Whole Blood 200 mg/dL (75-99)
[2021-10-02] MEDS: INSULIN ASPART (NovoLOG) 100 UNIT/ML VIAL SQ SCH ×4 (06:30→20:55)
[2021-10-02] MEDS: ALBUTEROL HFA INHALER INHALATION PRN ×4 (07:23→20:03)
[2021-10-02] MEDS: polyethylene glycoL 3350 17 GM POWD.PACK PO SCH (09:56)
[2021-10-02] MEDS: ZINC SULFATE 220 MG CAP PO SCH (09:56)
[2021-10-02] MEDS: ASCORBIC ACID 500 MG TAB PO SCH (09:56)
[2021-10-02] MEDS: METOPROLOL SUCCINATE (ER) 25 MG TAB.ER.24H PO SCH (09:56)
[2021-10-02] MEDS: CHOLECALCIFEROL 125 MCG (5000 IU) TABLET PO SCH (09:56)
[2021-10-02] MEDS: APIXABAN 5 MG TAB PO SCH ×2 (09:56→20:55)
[2021-10-02] MEDS: DEXAMETHASONE SOD PHOSPHATE 10 MG/ML 1 ML VIAL IVP SCH ×2 (09:57→20:54)
[2021-10-02] MEDS: SODIUM CHLORIDE 0.9% 1,000 ML IV SCH (09:59)
--- NOTE | 2021-10-02 10:27 | P.PN ---
Subjective Progress Note Date: 10/02/21 Principal diagnosis: COVID-19 pneumonia On 10/01/2021 patient seen in follow-up on selective care unit, she currently remains on irritable at 50% FiO2 of 50% and a nonrebreather mask, and her pulse ox is 94%, still continues to require high flow oxygen, however she denies any w orsening dyspnea, patient is able to talk in full sentences, she has been speaking quite extensively on the phone, tolerates it quite well. However she states her chest feels a little tight today and she feels as if she cannot take a deep breath. No fever or chills, vital signs have been stable, no cough, no phlegm production, no hemoptysis. She currently remains on Decadron 6 mg daily, she remains on multivitamins, she is on oral anticoagulation in the form of Eliquis. Sounds reveal diffuse coarse crackles, follow-up chest x-ray today showing interstitial and groundglass opacities persisting within the lungs. No change from prior exam. His labs have been reviewed, her white blood cell count was 12.7, hemoglobin is 12.7, sodium is 133, rest of electrolytes were within normal limits, B1 is 21 creatinine 0.72. Inflammatory markers are improving, LDH is 892, and CRP is 3.5 on today's labs, denies any nausea vomiting or diarrhea, she is tolerating oral intake. On 10/02/2021 patient seen in follow-up on selective care unit, currently she is resting comfortably in bed, has exertional dyspnea but does not appear to be in any acute distress, occasional cough, with mild congestion, no phlegm production, she is working on incentive spirometer, she is achieving 1.5 L on it. Lung sounds revealed mild scattered bibasilar crackles, her Airvo settings today at 45 L and FiO2 of 50% and her pulse ox is ranging between 89-93%. We increased her dose of Decadron to twice daily at 6 mg, she continues on oral intake regulation in the form of Eliquis, she is on multivitamins and a gentle IV hydration with 0.9 normal saline at a rate of 50 ML per hour, she's had no acute events overnight. Yesterday's chest x-ray showed interstitial and groundglass opacities changes persisting within the lungs, similar to prior exam without significant change. Her inflammatory markers were improving and yesterday's labs, today's levels are still pending. Patient is tolerating oral intake, no nausea or vomiting, no diarrhea. No abdominal pain. Objective - Vital Signs Vital signs: Vital Signs Temp 98.1 F 10/02/21 04:00 Pulse 61 10/02/21 04:00 Resp 20 10/02/21 04:00 BP 107/62 10/02/21 04:00 Pulse Ox 89 L 10/02/21 07:24 Intake & Output 10/01/21 10/02/21 10/02/21 18:59 06:59 18:59 Intake Total 2040 400 240 Output Total 3 1500 Balance 2036 -1099 240 Weight 68.039 kg Intake: Intake, IV Titration 400 Amount Sodium Chloride 0.9% 1, 400 000 ml @ 50 mls/hr IV . Q20H [facility] Rx#:[id number] Oral 2039 240 Output: Urine 3 1500 Other: Voiding Method Bedside Commode Bedside Commode # Voids 2 1 # Bowel Movements 1 - Exam GENERAL EXAM: Alert, very pleasant, 71-year-old white female, on Airvo at 45 L and FiO2 of 50% with a pulse ox of 93% comfortable in no apparent distress. HEAD: Normocephalic/atraumatic. EYES: Normal reaction of pupils, equal size. Conjunctiva pink, sclera white. NOSE: Clear with pink turbinates. THROAT: No erythema or exudates. NECK: No masses, no JVD, no thyroid enlargement, no adenopathy. CHEST: No chest wall deformity. Symmetrical expansion. LUNGS: Equal air entry with diffuse coarse crackles bilaterally CVS: Regular rate and rhythm, normal S1 and S2, no gallops, no murmurs, no rubs ABDOMEN: Soft, nontender. No hepatosplenomegaly, normal bowel sounds, no guarding or rigidity. EXTREMITIES: No clubbing, no edema, no cyanosis, 2+ pulses and upper and lower extremities. MUSCULOSKELETAL: Muscle strength and tone normal. SPINE: No scoliosis or deformity SKIN: No rashes CENTRAL NERVOUS SYSTEM: Alert and oriented -3. No focal deficits, tone is n ormal in all 4 extremities. PSYCHIATRIC: Alert and oriented -3. Appropriate affect. Intact judgment and insight. - Labs CBC & Chem 7: 10/01/21 07:44 10/01/21 07:44 Labs: Abnormal Lab Results - Last 24 Hours (Table) 10/01/21 10/01/21 10/01/21 Range/Units 11:35 16:20 20:05 POC Glucose (mg/dL) 174 H 324 H 358 H (75-99) mg/dL 10/02/21 Range/Units 06:08 POC Glucose (mg/dL) 200 H (75-99) mg/dL Assessment and Plan Plan: Assessment: #1. Acute on chronic hypoxic respiratory failure secondary to acute COVID-19 related pneumonia and history of interstitial lung disease. Patient had interval worsening in her oxygenation. Patient is chronically Immunosuppressed related to a history of taking Humira and Xeljanz on an outpatient basis. She currently remains on Decadron. She is currently on Airvo at 45 L and FiO2 of 50% #2. 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 History of rheumatoid arthritis #4. 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 History of left lower extremity DVT #6. History of COPD #7. Former history of chronic tobacco dependence #8. Elevated inflammatory markers related to acute COVID-19 related infection, improving Plan: Oxygenation slightly improved since yesterday, remains on Airvo, currently down to 45 L and FiO2 of 50% without having to use the nonrebreather mask Encourage deep breathing and coughing incentive spirometry use, Continue with Decadron 6 mg twice daily, continue oral anticoagulation and multivitamins Encourage the patient to sit up in the chair No acute events overnight Follow-up labs including inflammatory markers and d-dimer tomorrow Overall seems to be a bit improved We'll continue to follow her clinical course I performed a history & physical examination of the patient and discussed their management with my nurse practitioner, Leslie Garza. I reviewed the nurse practitioner's note and agree with the documented findings and plan of care. Lung sounds are positive for throughout the lung hurt. The findings and the impression was discussed with the patient. I attest to the documentation by the nurse practitioner. Time with Patient: Less than 30
[2021-10-02 11:47] LABS: Glucose,Whole Blood 180 mg/dL (75-99)
[2021-10-02 16:56] LABS: Glucose,Whole Blood 267 mg/dL (75-99)
[2021-10-02 20:11] LABS: Glucose,Whole Blood 299 mg/dL (75-99)
[2021-10-02] MEDS: SENNOSIDES-DOCUSATE SODIUM 1 EACH TAB PO SCH (20:50)
[2021-10-02] MEDS: INSULIN DETEMIR (LEVEMIR) 100 UNIT/ML SYR SQ SCH (20:55)
[2021-10-03 06:08] LABS: Glucose,Whole Blood 174 mg/dL (75-99)
[2021-10-03] MEDS: INSULIN ASPART (NovoLOG) 100 UNIT/ML VIAL SQ SCH ×4 (06:24→21:11)
[2021-10-03 07:46] LABS: Basophils % (A) 0 %; Eosinophils # (A) 0.1 k/uL (0-0.7); Eosinophils % (A) 0 %; HCT 36.9 % (34.0-46.0); HGB 11.3 gm/dL (11.4-16.0); Hypochromasia Moderate; Lymphocytes # (A) 0.6 k/uL (1.0-4.8); Lymphocytes % (A) 2 %; MCHC 30.6 g/dL (31.0-37.0); MCV 94.6 fL (80.0-100.0); Mean Platelet Volume 8.7; Monocytes # (A) 0.6 k/uL (0-1.0); Monocytes % (A) 3 %; Neutrophils # (A) 21.6 k/uL (1.3-7.7); Neutrophils % (A) 94 %; Platelet Count 329 k/uL (150-450); RDW 14.8 % (11.5-15.5); WBC 22.9 k/uL (3.8-10.6)
--- NOTE | 2021-10-03 07:52 | XR ---
EXAMINATION TYPE: XR chest 1V portable DATE OF EXAM: 10/03/2021 Comparison: 10/01/2021 Clinical History: 71-year-old female shortness of breath, COVID Findings: Heart normal size. Diffuse reticular opacities persist. Patchy interstitial infiltrate periphery of t he left mid and lower lung and to a lesser degree on the right. This shows slightly less confluent ap pearance. Impression: Diffuse interstitial infiltrates and patchy peripheral infiltrates, left greater than right persist, but show slight interval improvement on the left.
[2021-10-03 08:37] LABS: African American GFR (CKD) >90 (>60 ml/min/1.73 sqM); Anion Gap 8 mmol/L; Blood Urea Nitrogen 30 mg/dL (7-17); C Reactive Protein 1.5 mg/dL (<1.0); Calcium 8.6 mg/dL (8.4-10.2); Carbon Dioxide 21 mmol/L (22-30); Chloride 106 mmol/L (98-107); Glucose 156 mg/dL (74-99); LDH 954 U/L (313-618); Non-African American GFR(CKD) 81 (>60 ml/min/1.73 sqM); Potassium 4.1 mmol/L (3.5-5.1); Sodium 135 mmol/L (137-145)
[2021-10-03] MEDS: DEXAMETHASONE SOD PHOSPHATE 10 MG/ML 1 ML VIAL IVP SCH ×2 (09:34→20:54)
[2021-10-03] MEDS: SODIUM CHLORIDE 0.9% 1,000 ML IV SCH (09:34)
[2021-10-03] MEDS: polyethylene glycoL 3350 17 GM POWD.PACK PO SCH (09:35)
[2021-10-03] MEDS: APIXABAN 5 MG TAB PO SCH ×2 (09:35→21:11)
[2021-10-03] MEDS: ZINC SULFATE 220 MG CAP PO SCH (09:35)
[2021-10-03] MEDS: ASCORBIC ACID 500 MG TAB PO SCH (09:35)
[2021-10-03] MEDS: CHOLECALCIFEROL 125 MCG (5000 IU) TABLET PO SCH (09:35)
[2021-10-03] MEDS: METOPROLOL SUCCINATE (ER) 25 MG TAB.ER.24H PO SCH (09:35)
--- NOTE | 2021-10-03 09:35 | P.PN ---
Subjective Progress Note Date: 10/03/21 Principal diagnosis: COVID-19 pneumonia On 10/01/2021 patient seen in follow-up on selective care unit, she currently remains on irritable at 50% FiO2 of 50% and a nonrebreather mask, and her pulse ox is 94%, still continues to require high flow oxygen, however she denies any w orsening dyspnea, patient is able to talk in full sentences, she has been speaking quite extensively on the phone, tolerates it quite well. However she states her chest feels a little tight today and she feels as if she cannot take a deep breath. No fever or chills, vital signs have been stable, no cough, no phlegm production, no hemoptysis. She currently remains on Decadron 6 mg daily, she remains on multivitamins, she is on oral anticoagulation in the form of Eliquis. Sounds reveal diffuse coarse crackles, follow-up chest x-ray today showing interstitial and groundglass opacities persisting within the lungs. No change from prior exam. His labs have been reviewed, her white blood cell count was 12.7, hemoglobin is 12.7, sodium is 133, rest of electrolytes were within normal limits, B1 is 21 creatinine 0.72. Inflammatory markers are improving, LDH is 892, and CRP is 3.5 on today's labs, denies any nausea vomiting or diarrhea, she is tolerating oral intake. On 10/02/2021 patient seen in follow-up on selective care unit, currently she is resting comfortably in bed, has exertional dyspnea but does not appear to be in any acute distress, occasional cough, with mild congestion, no phlegm production, she is working on incentive spirometer, she is achieving 1.5 L on it. Lung sounds revealed mild scattered bibasilar crackles, her Airvo settings today at 45 L and FiO2 of 50% and her pulse ox is ranging between 89-93%. We increased her dose of Decadron to twice daily at 6 mg, she continues on oral intake regulation in the form of Eliquis, she is on multivitamins and a gentle IV hydration with 0.9 normal saline at a rate of 50 ML per hour, she's had no acute events overnight. Yesterday's chest x-ray showed interstitial and groundglass opacities changes persisting within the lungs, similar to prior exam without significant change. Her inflammatory markers were improving and yesterday's labs, today's levels are still pending. Patient is tolerating oral intake, no nausea or vomiting, no diarrhea. No abdominal pain. On 10/03/2021 patient seen in follow-up on selective care unit, she remains on Airvo, currently at 45 L and FiO2 of 50%, her pulse ox is ranging between 90- 94%, occasional cough, no phlegm production, still has significant exertional dyspnea, takes a while to recover, however still tolerates activity well, she gets up to the bedside, phone, she participates in her own care including assisting with baths. Lung sounds are relatively clear, but very minimal rhonchi, no complaints of chest discomfort, vital signs have been stable, no fevers overnight. Today's chest x-ray showing diffuse interstitial infiltrates and patchy peripheral infiltrates left greater than right with some slight interval improvement on the left. Patient remains on Decadron 6 mg twice daily, on oral anticoagulation with Eliquis, no nausea vomiting or diarrhea. His labs have been reviewed showing white blood cell count of 22.9, hemoglobin of 11.3, d-dimer is 2.03, sodium is 135, potassium is 4.1, chloride is 106, CO2 is 21, BUN is 30 creatinine 0.75. LDH is 954, a bit increased, and CRP is improving down to 1.5. Objective - Vital Signs Vital signs: Vital Signs Temp 97.9 F 10/03/21 04:00 Pulse 59 L 10/03/21 04:00 Resp 18 10/03/21 04:00 BP 115/69 10/03/21 04:00 Pulse Ox 93 L 10/03/21 08:46 Intake & Output 10/02/21 10/03/21 10/03/21 18:59 06:59 18:59 Intake Total 360 180 Output Total 200 300 Balance 160 -300 180 Intake: Oral 360 180 Output: Urine 200 300 Other: Voiding Method Bedside Commode Bedside Commode # Voids 1 # Bowel Movements 1 - Exam GENERAL EXAM: Alert, very pleasant, 71-year-old white female, on Airvo at 45 L and FiO2 of 50% with a pulse ox of 93% comfortable in no apparent distress. HEAD: Normocephalic/atraumatic. EYES: Normal reaction of pupils, equal size. Conjunctiva pink, sclera white. NOSE: Clear with pink turbinates. THROAT: No erythema or exudates. NECK: No masses, no JVD, no thyroid enlargement, no adenopathy. CHEST: No chest wall deformity. Symmetrical expansion. LUNGS: Equal air entry with diffuse coarse crackles bilaterally CVS: Regular rate and rhythm, normal S1 and S2, no gallops, no murmurs, no rubs ABDOMEN: Soft, nontender. No hepatosplenomegaly, normal bowel sounds, no guarding or rigidity. EXTREMITIES: No clubbing, no edema, no cyanosis, 2+ pulses and upper and lower extremities. MUSCULOSKELETAL: Muscle strength and tone normal. SPINE: No scoliosis or deformity SKIN: No rashes CENTRAL NERVOUS SYSTEM: Alert and oriented -3. No focal deficits, tone is normal in all 4 extremities. PSYCHIATRIC: Alert and oriented -3. Appropriate affect. Intact judgment and insight. - Labs CBC & Chem 7: 10/03/21 07:10 10/03/21 07:10 Labs: Abnormal Lab Results - Last 24 Hours (Table) 10/02/21 10/02/21 10/02/21 Range/Units 11:46 16:55 20:07 WBC (3.8-10.6) k/uL Hgb (11.4-16.0) gm/dL MCHC (31.0-37.0) g/dL Neutrophils # (1.3-7.7) k/uL Lymphocytes # (1.0-4.8) k/uL D-Dimer (<0.60) mg/L FEU Sodium (137-145) mmol/L Carbon Dioxide (22-30) mmol/L BUN (7-17) mg/dL Glucose (74-99) mg/dL POC Glucose (mg/dL) 180 H 267 H 299 H (75-99) mg/dL Lactate Dehydrogenase (313-618) U/L C-Reactive Protein (<1.0) mg/dL 10/03/21 10/03/21 10/03/21 Range/Units 06:05 07:10 07:10 WBC 22.9 H (3.8-10.6) k/uL Hgb 11.3 L (11.4-16.0) gm/dL MCHC 30.6 L (31.0-37.0) g/dL Neutrophils # 21.6 H (1.3-7.7) k/uL Lymphocytes # 0.6 L (1.0-4.8) k/uL D-Dimer 2.03 H (<0.60) mg/L FEU Sodium (137-145) mmol/L Carbon Dioxide (22-30) mmol/L BUN (7-17) mg/dL Glucose (74-99) mg/dL POC Glucose (mg/dL) 174 H (75-99) mg/dL Lactate Dehydrogenase (313-618) U/L C-Reactive Protein (<1.0) mg/dL 10/03/21 Range/Units 07:10 WBC (3.8-10.6) k/uL Hgb (11.4-16.0) gm/dL MCHC (31.0-37.0) g/dL Neutrophils # (1.3-7.7) k/uL Lymphocytes # (1.0-4.8) k/uL D-Dimer (<0.60) mg/L FEU Sodium 135 L (137-145) mmol/L Carbon Dioxide 21 L (22-30) mmol/L BUN 30 H (7-17) mg/dL Glucose 156 H (74-99) mg/dL POC Glucose (mg/dL) (75-99) mg/dL Lactate Dehydrogenase 954 H (313-618) U/L C-Reactive Protein 1.5 H (<1.0) mg/dL Assessment and Plan Plan: Assessment: #1. Acute on chronic hypoxic respiratory failure secondary to acute COVID-19 related pneumonia and history of interstitial lung disease. Patient had interval worsening in her oxygenation. Patient is chronically Immunosuppressed related to a history of taking Humira and Xeljanz on an outpatient basis. She currently remains on Decadron. She is currently on Airvo at 45 L and FiO2 of 50% #2. 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 History of rheumatoid arthritis #4. 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 History of left lower extremity DVT #6. History of COPD #7. Former history of chronic tobacco dependence #8. Elevated inflammatory markers related to acute COVID-19 related infection, improving Plan: Clinically remains stable, Remains on Airvo at 45 L and FiO2 of 50% Today's chest x-ray showing bilateral airspace disease with slight improvement i n the left lung Continue current medical treatment, continue Decadron 6 million twice daily, continue oral anticoagulation Continue multivitamin Encourage deep breathing and coughing incentive spirometry use, No acute events overnight Continue attempting to wean FiO2 to keep O2 sats ration is at or above 90% We'll continue to follow her clinical course I performed a history & physical examination of the patient and discussed their management with my nurse practitioner, Leslie Garza. I reviewed the nurse practitioner's note and agree with the documented findings and plan of care. Lung sounds are positive for throughout the lung hurt. The findings and the impression was discussed with the patient. I attest to the documentation by the nurse practitioner. Time with Patient: Less than 30
[2021-10-03 11:36] LABS: Glucose,Whole Blood 136 mg/dL (75-99)
--- NOTE | 2021-10-03 16:08 | P.PN ---
Subjective Progress Note Date: 10/02/21 This is a 71-year-old female admitted with acute Covid pneumonia, acute on chronic hypoxic respiratory failure, new onset atrial fibrillation and multiple other medical issues. Patient developed atrial fibrillation with RVR last night transferred to telemetry and converted back to sinus rhythm prior to initiation of Cardizem drip. Anticoagulated with Eliquis. Denies chest pain, palpitations or chest pressure. Maintained on covid cocktail. Continues on 15 L high flow nasal cannula to maintain O2 sats in the 90s. Afebrile. Labs pending. 09/24/2021 maintained on COVID cocktail. Anticoagulated with Eliquis. continues on high flow nasal cannula 15 L/100% facemask maintaining O2 sats in the low 9 0s. Reports nonproductive cough. Denies increased shortness of breath.LDL decreased to 1058, CRP down to 3.7. Maintain sinus rhythm. Denies chest pain, chest pressure or palpitations. Echo pending. 09/25/21 maintaining O2 sats in the low 90s on airflow 55/75 FIO2. Continues on covid cocktail. Sitting up in bed, denies chest pain, chest pressure, or cough. Denies nausea vomiting or diarrhea. Reports she's freezing -room is cold. Afebrile. Limited echo reporting normal LV function, right ventricle mild to moderately enlarged. 09/26/2021 continues on Covid Cocktail. continues to feel well, denies cough. Afebrile, denies any chills. Maintaining O2 sats in the low 90s to high 80s on airvo 55 L/70% Fio2. Denies any chest pain, chest pressure palpitations or increasing shortness of breath. Afebrile, d-dimer 5.2 LDH, CRP improving. Chest x-ray reports unchanged. 09/27/2021 Feels better today ,reports able to deep breath easier. Denies cough.Maintaining O2 sats in the 90s on flow rate 55/ 70 Fio2. Continues on Covid cocktail .Afebrile, WBC 16.1. Anticoagulated on Eliquis. 09/30/2021 maintained on airflow, flow rate 50, FiO2 55%, maintaining O2 sat in the low 90s. Denies any increased shortness of breath.Denies nausea vomiting, denies cough. Afebrile. Complains of constipation. Denies chest pain, palpitations or chest pressure. Denies lightheadedness dizziness or focal deficits. 10/01/2021 reports doing well, asymptomatic on AIRVO 50% plus nonrebreather, maintaining O2 sats in the 90s. Denies shortness of breath. Denies chest pressure. Reports achy joints-reports common with her rheumatoid arthritis;could be covid related. Denies nausea vomiting or diarrhea. no overnight events. Decadron increased yesterday .Maintained on AIrvo 45L/Fio2 50%, maintaining O2 sats in the high 80s to low 90s. Denies nausea vomiting or diarrhea. Denies chest pain, palpitations. Reports increased shortness of breath with minimal exertion.LAbs pending. Afebrile. Objective - Vital Signs Vital signs: Vital Signs Temp 97.5 F L 10/02/21 16:15 Pulse 78 10/02/21 16:15 Resp 16 10/02/21 16:15 BP 114/76 10/02/21 16:15 Pulse Ox 88 L 10/02/21 16:15 Intake & Output 10/01/21 10/02/21 10/02/21 18:59 06:59 18:59 Intake Total 2040 400 360 Output Total 3 1500 200 Balance 2036 -1099 160 Weight 68.039 kg Intake: Intake, IV Titration 400 Amount Sodium Chloride 0.9% 1, 400 000 ml @ 50 mls/hr IV . Q20H [facility] Rx#:[id number] Oral 2040 360 Output: Urine 3 1500 200 Other: Voiding Method Bedside Commode Bedside Commode Bedside Commode # Voids 2 1 # Bowel Movements 1 - Exam PHYSICAL EXAMINATION: GENERAL: Alert and oriented 3 ,sitting up in bed comfortably. HEENT: Normocephalic. Neck is supple. Pupils reactive. Neck: Supple, no JVD. CHEST EXAMINATION: Nonlabored, Symmetrical expansion. Coarse ,Diminished air sounds. CARDIAC: Normal S1, S2 with no gallops. No murmurs. ABDOMEN: Soft. Bowel sounds normal.No organomegaly. No guarding, +BS. Extremities: no edema. No clubbing or cyanosis. Neurological: Cranial nerves II-12 grossly intact .No focal deficits noted Skin: No rash, warm and dry - Labs CBC & Chem 7: 10/03/21 07:10 10/03/21 07:10 Labs: Abnormal Lab Results - Last 24 Hours (Table) 10/01/21 10/02/21 10/02/21 Range/Units 20:05 06:08 11:46 POC Glucose (mg/dL) 358 H 200 H 180 H (75-99) mg/dL 10/02/21 Range/Units 16:55 POC Glucose (mg/dL) 267 H (75-99) mg/dL Assessment and Plan Assessment: Acute on chronic hypoxemic respiratory failure secondary to COVID-19 pneumonia. Patient is vaccinated X 2 doses. Atrial fibrillation new onset. Chronic hypoxic respiratory failure secondary to interstitial lung disease due to rheumatoid arthritis on 2 L oxygen via nasal cannula. Lactic acidosis Rheumatoid arthritis Arthralgia, probably related to rheumatoid arthritis, possibly related to Covid. 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 Covid Cocktail,Airvo, anticoagulation with e liquis.Prognosis guarded given multiple complex medical issues. The impression and plan of care has been dictated as directed. : I performed a history and examination of this patient, discussed the same with the dictator. I agree with the dictator's note ,documented as a scribe. Any additional findings or plans will be noted.
[2021-10-03 16:26] LABS: Glucose,Whole Blood 285 mg/dL (75-99)
--- NOTE | 2021-10-03 16:26 | P.PN ---
Subjective Progress Note Date: 10/03/21 This is a 71-year-old female admitted with acute Covid pneumonia, acute on chronic hypoxic respiratory failure, new onset atrial fibrillation and multiple other medical issues. Patient developed atrial fibrillation with RVR last night transferred to telemetry and converted back to sinus rhythm prior to initiation of Cardizem drip. Anticoagulated with Eliquis. Denies chest pain, palpitations or chest pressure. Maintained on covid cocktail. Continues on 15 L high flow nasal cannula to maintain O2 sats in the 90s. Afebrile. Labs pending. 09/24/2021 maintained on COVID cocktail. Anticoagulated with Eliquis. continues on high flow nasal cannula 15 L/100% facemask maintaining O2 sats in the low 9 0s. Reports nonproductive cough. Denies increased shortness of breath.LDL decreased to 1058, CRP down to 3.7. Maintain sinus rhythm. Denies chest pain, chest pressure or palpitations. Echo pending. 09/25/21 maintaining O2 sats in the low 90s on airflow 55/75 FIO2. Continues on covid cocktail. Sitting up in bed, denies chest pain, chest pressure, or cough. Denies nausea vomiting or diarrhea. Reports she's freezing -room is cold. Afebrile. Limited echo reporting normal LV function, right ventricle mild to moderately enlarged. 09/26/2021 continues on Covid Cocktail. continues to feel well, denies cough. Afebrile, denies any chills. Maintaining O2 sats in the low 90s to high 80s on airvo 55 L/70% Fio2. Denies any chest pain, chest pressure palpitations or increasing shortness of breath. Afebrile, d-dimer 5.2 LDH, CRP improving. Chest x-ray reports unchanged. 09/27/2021 Feels better today ,reports able to deep breath easier. Denies cough.Maintaining O2 sats in the 90s on flow rate 55/ 70 Fio2. Continues on Covid cocktail .Afebrile, WBC 16.1. Anticoagulated on Eliquis. 09/30/2021 maintained on airflow, flow rate 50, FiO2 55%, maintaining O2 sat in the low 90s. Denies any increased shortness of breath.Denies nausea vomiting, denies cough. Afebrile. Complains of constipation. Denies chest pain, palpitations or chest pressure. Denies lightheadedness dizziness or focal deficits. 10/01/2021 reports doing well, asymptomatic on AIRVO 50% plus nonrebreather, maintaining O2 sats in the 90s. Denies shortness of breath. Denies chest pressure. Reports achy joints-reports common with her rheumatoid arthritis;could be covid related. Denies nausea vomiting or diarrhea. no overnight events. Decadron increased yesterday .Maintained on AIrvo 45L/Fio2 50%, maintaining O2 sats in the high 80s to low 90s. Denies nausea vomiting or diarrhea. Denies chest pain, palpitations. Reports increased shortness of breath with minimal exertion.LAbs pending. Afebrile. 10/03/2021 Airvo 45L/FIO2 50%, O2 sats in the low 90s. Chest x-ray pending. Afebrile. Labs pending. Reports exertional shortness of breath. Denies chest pain, palpitations. Denies nausea vomiting or diarrhea. Denies lightheadedness, dizziness or focal deficits. Objective - Vital Signs Vital signs: Vital Signs Temp 98.3 F 10/03/21 09:30 Pulse 66 10/03/21 12:10 Resp 16 10/03/21 12:10 BP 153/72 10/03/21 12:10 Pulse Ox 86 L 10/03/21 12:10 Intake & Output 10/02/21 10/03/21 10/03/21 18:59 06:59 18:59 Intake Total 360 360 Output Total 200 300 Balance 160 -300 360 Intake: Oral 360 360 Output: Urine 200 300 Other: Voiding Method Bedside Commode Bedside Commode Bedside Commode # Voids 1 1 # Bowel Movements 1 1 - Exam PHYSICAL EXAMINATION: GENERAL: Alert and oriented 3 ,sitting up in bed comfortably. HEENT: Normocephalic. Neck is supple. Pupils reactive. Oral mucosa moist. Neck: Supple, no JVD. CHEST EXAMINATION: Nonlabored, Symmetrical expansion. Coarse ,Diminished air sounds. CARDIAC: Normal S1, S2 with no gallops. No murmurs. ABDOMEN: Soft. Bowel sounds normal.No organomegaly. No guarding, +BS. Extremities: no edema. No clubbing or cyanosis. Neurological: Cranial nerves II-12 grossly intact .No focal deficits noted Skin: No rash, warm and dry - Labs CBC & Chem 7: 10/03/21 07:10 10/03/21 07:10 Labs: Abnormal Lab Results - Last 24 Hours (Table) 10/02/21 10/02/21 10/03/21 Range/Units 16:55 20:07 06:05 WBC (3.8-10.6) k/uL Hgb (11.4-16.0) gm/dL MCHC (31.0-37.0) g/dL Neutrophils # (1.3-7.7) k/uL Lymphocytes # (1.0-4.8) k/uL D-Dimer (<0.60) mg/L FEU Sodium (137-145) mmol/L Carbon Dioxide (22-30) mmol/L BUN (7-17) mg/dL Glucose (74-99) mg/dL POC Glucose (mg/dL) 267 H 299 H 174 H (75-99) mg/dL Lactate Dehydrogenase (313-618) U/L C-Reactive Protein (<1.0) mg/dL 10/03/21 10/03/21 10/03/21 Range/Units 07:10 07:10 07:10 WBC 22.9 H (3.8-10.6) k/uL Hgb 11.3 L (11.4-16.0) gm/dL MCHC 30.6 L (31.0-37.0) g/dL Neutrophils # 21.6 H (1.3-7.7) k/uL Lymphocytes # 0.6 L (1.0-4.8) k/uL D-Dimer 2.03 H (<0.60) mg/L FEU Sodium 135 L (137-145) mmol/L Carbon Dioxide 21 L (22-30) mmol/L BUN 30 H (7-17) mg/dL Glucose 156 H (74-99) mg/dL POC Glucose (mg/dL) (75-99) mg/dL Lactate Dehydrogenase 954 H (313-618) U/L C-Reactive Protein 1.5 H (<1.0) mg/dL 10/03/21 Range/Units 11:34 WBC (3.8-10.6) k/uL Hgb (11.4-16.0) gm/dL MCHC (31.0-37.0) g/dL Neutrophils # (1.3-7.7) k/uL Lymphocytes # (1.0-4.8) k/uL D-Dimer (<0.60) mg/L FEU Sodium (137-145) mmol/L Carbon Dioxide (22-30) mmol/L BUN (7-17) mg/dL Glucose (74-99) mg/dL POC Glucose (mg/dL) 136 H (75-99) mg/dL Lactate Dehydrogenase (313-618) U/L C-Reactive Protein (<1.0) mg/dL Assessment and Plan Assessment: Acute on chronic hypoxemic respiratory failure secondary to COVID-19 pneumonia. Patient is vaccinated X 2 doses. Atrial fibrillation new onset. Chronic hypoxic respiratory failure secondary to interstitial lung disease due to rheumatoid arthritis on 2 L oxygen via nasal cannula. Lactic acidosis Rheumatoid arthritis Arthralgia, probably related to rheumatoid arthritis, possibly related to Covid. 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 Chest x-ray pending.Covid Cocktail,Airvo.Prognosis guarded given multiple complex medical issues. The impression and plan of care has been dictated as directed. : I performed a history and examination of this patient, discussed the same with the dictator. I agree with the dictator's note ,documented as a scribe. Any additional findings or plans will be noted.
[2021-10-03] MEDS: ALBUTEROL HFA INHALER INHALATION PRN (20:25)
[2021-10-03 20:51] LABS: Glucose,Whole Blood 72 mg/dL (75-99)
[2021-10-03] MEDS: SENNOSIDES-DOCUSATE SODIUM 1 EACH TAB PO SCH (21:11)
[2021-10-03] MEDS: INSULIN DETEMIR (LEVEMIR) 100 UNIT/ML SYR SQ SCH (21:11)
[2021-10-04] MEDS: SODIUM CHLORIDE 0.9% 1,000 ML IV SCH (04:45)
[2021-10-04 06:25] LABS: Glucose,Whole Blood 194 mg/dL (75-99)
[2021-10-04] MEDS: INSULIN ASPART (NovoLOG) 100 UNIT/ML VIAL SQ SCH ×4 (06:30→21:45)
[2021-10-04] MEDS: INSULIN DETEMIR (LEVEMIR) 100 UNIT/ML SYR SQ SCH ×2 (06:30→21:45)
[2021-10-04] MEDS: ZINC SULFATE 220 MG CAP PO SCH (08:55)
[2021-10-04] MEDS: APIXABAN 5 MG TAB PO SCH ×2 (08:55→21:45)
[2021-10-04] MEDS: CHOLECALCIFEROL 125 MCG (5000 IU) TABLET PO SCH (08:55)
[2021-10-04] MEDS: METOPROLOL SUCCINATE (ER) 25 MG TAB.ER.24H PO SCH (08:55)
[2021-10-04] MEDS: polyethylene glycoL 3350 17 GM POWD.PACK PO SCH (08:56)
[2021-10-04] MEDS: DEXAMETHASONE SOD PHOSPHATE 10 MG/ML 1 ML VIAL IVP SCH ×2 (08:56→21:45)
[2021-10-04] MEDS: ASCORBIC ACID 500 MG TAB PO SCH ×2 (08:56→09:01)
--- NOTE | 2021-10-04 11:12 | P.PN ---
Subjective Progress Note Date: 10/04/21 Principal diagnosis: COVID-19 pneumonia The patient is seen today 10/04/2021 in follow-up on the selective care unit. She is currently sitting up in bed. Awake and alert in no acute distress. She is breathing easier today compared to yesterday. She has been transitioned over to 10 L high flow nasal cannula. She's been afebrile. Hemodynamically stable. O2 saturations in the high 80s low 90s. Blood glucose 194. She is maintained on Decadron, Eliquis, vitamin supplements. Sugars controlled with Levemir and NovoLog. Remains on bronchodilators. Objective - Vital Signs Vital signs: Vital Signs Temp 98.2 F 10/04/21 08:00 Pulse 73 10/04/21 08:00 Resp 22 10/04/21 08:00 BP 121/69 10/04/21 08:00 Pulse Ox 85 L 10/04/21 08:00 Intake & Output 10/03/21 10/04/21 10/04/21 18:59 06:59 18:59 Intake Total 360 480 Output Total 400 400 Balance 360 -400 80 Intake: Oral 360 480 Output: Urine 400 400 Other: Voiding Method Bedside Commode Bedside Commode # Voids 1 1 # Bowel Movements 1 1 - Exam GENERAL EXAM: Alert, active, very pleasant 71-year-old female patient, on 10 L high flow nasal cannula, comfortable in no apparent distress. HEAD: Normocephalic. EYES: Normal reaction of pupils, equal size. NOSE: Clear with pink turbinates. THROAT: No erythema or exudates. NECK: No masses, no JVD. CHEST: No chest wall deformity. LUNGS: Equal air entry with crackles in bilateral bases. CVS: S1 and S2 normal with no audible murmur, regular rhythm. ABDOMEN: No hepatosplenomegaly, normal bowel sounds, no guarding or rigidity. SPINE: No scoliosis or deformity SKIN: No rashes CENTRAL NERVOUS SYSTEM: No focal deficits, tone is normal in all 4 extremities. EXTREMITIES: There is no peripheral edema. No clubbing, no cyanosis. Peripheral pulses are intact. - Labs CBC & Chem 7: 10/03/21 07:10 10/03/21 07:10 Labs: Abnormal Lab Results - Last 24 Hours (Table) 10/03/21 10/03/21 10/03/21 Range/Units 11:34 16:25 20:50 POC Glucose (mg/dL) 136 H 285 H 72 L (75-99) mg/dL 10/04/21 Range/Units 06:23 POC Glucose (mg/dL) 194 H (75-99) mg/dL Assessment and Plan Assessment: 1 Acute on chronic hypoxemic respiratory failure secondary to acute COVID-19 pneumonia. The patient had previously been vaccinated. No booster. Unsure as to when her symptoms started. She is a poor historian. Immunocompromised and on Humira Insall chance for RA. Currently on 10 L high flow nasal cannula. 2 Chronic hypoxemic respiratory failure secondary to interstitial lung disease, suspect secondary to rheumatoid arthritis, normally on 2 L nasal cannula 3 Rheumatoid arthritis previously on Xeljanz and Humira 4 History of sub-acute massive pulmonary embolism. Recommended long-term anticoagulation and remains on Eliquis 5 History of left lower extremity DVT, currently on Eliquis 6 Chronic obstructive pulmonary disease 7 Previous history of chronic tobacco dependence Plan: The patient was seen and evaluated Improving on 10 L high flow nasal cannula Continue to titrate the FiO2 as tolerated Continue Decadron, Eliquis, vitamin supplements Encouraged to continue to work with the incentive spirometer Increase her activity as tolerated We will continue to follow I, the cosigning physician, performed a history & physical examination of the patient. Lungs sounds are coarse crackles in the posterior bases. Maintaining O2 saturations in the 90s on 10 L high flow nasal cannula. I discussed the assessment and plan of care with my nurse practitioner, Suzy Donohue. I attest to the above note as dictated by her.
[2021-10-04 11:50] LABS: Glucose,Whole Blood 89 mg/dL (75-99)
--- NOTE | 2021-10-04 13:27 | P.PN ---
Subjective Progress Note Date: 10/04/21 This is a 71-year-old female admitted with acute Covid pneumonia, acute on chronic hypoxic respiratory failure, new onset atrial fibrillation and multiple other medical issues. Patient developed atrial fibrillation with RVR last night transferred to telemetry and converted back to sinus rhythm prior to initiation of Cardizem drip. Anticoagulated with Eliquis. Denies chest pain, palpitations or chest pressure. Maintained on covid cocktail. Continues on 15 L high flow nasal cannula to maintain O2 sats in the 90s. Afebrile. Labs pending. 09/24/2021 maintained on COVID cocktail. Anticoagulated with Eliquis. continues on high flow nasal cannula 15 L/100% facemask maintaining O2 sats in the low 9 0s. Reports nonproductive cough. Denies increased shortness of breath.LDL decreased to 1058, CRP down to 3.7. Maintain sinus rhythm. Denies chest pain, chest pressure or palpitations. Echo pending. 09/25/21 maintaining O2 sats in the low 90s on airflow 55/75 FIO2. Continues on covid cocktail. Sitting up in bed, denies chest pain, chest pressure, or cough. Denies nausea vomiting or diarrhea. Reports she's freezing -room is cold. Afebrile. Limited echo reporting normal LV function, right ventricle mild to moderately enlarged. 09/26/2021 continues on Covid Cocktail. continues to feel well, denies cough. Afebrile, denies any chills. Maintaining O2 sats in the low 90s to high 80s on airvo 55 L/70% Fio2. Denies any chest pain, chest pressure palpitations or increasing shortness of breath. Afebrile, d-dimer 5.2 LDH, CRP improving. Chest x-ray reports unchanged. 09/27/2021 Feels better today ,reports able to deep breath easier. Denies cough.Maintaining O2 sats in the 90s on flow rate 55/ 70 Fio2. Continues on Covid cocktail .Afebrile, WBC 16.1. Anticoagulated on Eliquis. 09/30/2021 maintained on airflow, flow rate 50, FiO2 55%, maintaining O2 sat in the low 90s. Denies any increased shortness of breath.Denies nausea vomiting, denies cough. Afebrile. Complains of constipation. Denies chest pain, palpitations or chest pressure. Denies lightheadedness dizziness or focal deficits. 10/01/2021 reports doing well, asymptomatic on AIRVO 50% plus nonrebreather, maintaining O2 sats in the 90s. Denies shortness of breath. Denies chest pressure. Reports achy joints-reports common with her rheumatoid arthritis;could be covid related. Denies nausea vomiting or diarrhea. no overnight events. Decadron increased yesterday .Maintained on AIrvo 45L/Fio2 50%, maintaining O2 sats in the high 80s to low 90s. Denies nausea vomiting or diarrhea. Denies chest pain, palpitations. Reports increased shortness of breath with minimal exertion.LAbs pending. Afebrile. 10/03/2021 Airvo 45L/FIO2 50%, O2 sats in the low 90s. Chest x-ray pending. Afebrile. Labs pending. Reports exertional shortness of breath. Denies chest pain, palpitations. Denies nausea vomiting or diarrhea. Denies lightheadedness, dizziness or focal deficits. 10/04/2021 continues on Covid Cocktail. maintaining O2 sats in the high 80s to low 90s on 10 L high flow nasal cannula. Occasional nonproductive cough. Reports she had been up in the chair, yesterday. Denies nausea vomiting or diarrhea. Blood sugars controlled. Objective - Vital Signs Vital signs: Vital Signs Temp 98.2 F 10/04/21 08:00 Pulse 73 10/04/21 08:00 Resp 22 10/04/21 08:00 BP 121/69 10/04/21 08:00 Pulse Ox 85 L 10/04/21 08:00 Intake & Output 10/03/21 10/04/21 10/04/21 18:59 06:59 18:59 Intake Total 360 480 Output Total 400 400 Balance 360 -400 80 Intake: Oral 360 480 Output: Urine 400 400 Other: Voiding Method Bedside Commode Bedside Commode # Voids 1 1 # Bowel Movements 1 1 - Exam PHYSICAL EXAMINATION: GENERAL: Alert and oriented 3 ,sitting up in bed comfortably. HEENT: Normocephalic. Neck is supple. Pupils reactive. Oral mucosa moist. Neck: Supple, no JVD. CHEST EXAMINATION: Nonlabored, Symmetrical expansion. Coarse ,Diminished air sounds. CARDIAC: Normal S1, S2 with no gallops. No murmurs. ABDOMEN: Soft. Bowel sounds normal.No organomegaly. No guarding, +BS. Extremities: no edema. No clubbing or cyanosis. Neurological: Cranial nerves II-12 grossly intact .No focal deficits noted Skin: No rash, warm and dry - Labs CBC & Chem 7: 10/03/21 07:10 10/03/21 07:10 Labs: Abnormal Lab Results - Last 24 Hours (Table) 10/03/21 10/03/21 10/04/21 Range/Units 16:25 20:50 06:23 POC Glucose (mg/dL) 285 H 72 L 194 H (75-99) mg/dL Assessment and Plan Assessment: Acute on chronic hypoxemic respiratory failure secondary to COVID-19 pneumonia. Patient is vaccinated X 2 doses. Atrial fibrillation new onset. Chronic hypoxic respiratory failure secondary to interstitial lung disease due to rheumatoid arthritis on 2 L oxygen via nasal cannula. Lactic acidosis Rheumatoid arthritis Arthralgia, probably related to rheumatoid arthritis, possibly related to Covid. 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 Covid Cocktail.Weaning of O2.aggressive pulmonary toileting with incentive spirometer reinforced .Prognosis guarded given multiple complex medical issues. The impression and plan of care has been dictated as directed. : I performed a history and examination of this patient, discussed the same with the dictator. I agree with the dictator's note ,documented as a scribe. Any additional findings or plans will be noted.
[2021-10-04 16:27] LABS: Glucose,Whole Blood 180 mg/dL (75-99)
[2021-10-04] MEDS: ALBUTEROL HFA INHALER INHALATION PRN (17:03)
[2021-10-04 20:30] LABS: Glucose,Whole Blood 145 mg/dL (75-99)
[2021-10-04] MEDS: SENNOSIDES-DOCUSATE SODIUM 1 EACH TAB PO SCH (21:45)
[2021-10-05] MEDS: SODIUM CHLORIDE 0.9% 1,000 ML IV SCH ×2 (01:06→20:26)
[2021-10-05 05:58] LABS: Glucose,Whole Blood 121 mg/dL (75-99)
[2021-10-05] MEDS: INSULIN ASPART (NovoLOG) 100 UNIT/ML VIAL SQ SCH ×4 (06:04→20:28)
[2021-10-05] MEDS: ALBUTEROL HFA INHALER INHALATION PRN (08:34)
[2021-10-05] MEDS: APIXABAN 5 MG TAB PO SCH ×2 (10:03→20:27)
[2021-10-05] MEDS: CHOLECALCIFEROL 125 MCG (5000 IU) TABLET PO SCH (10:04)
[2021-10-05] MEDS: ZINC SULFATE 220 MG CAP PO SCH (10:04)
[2021-10-05] MEDS: DEXAMETHASONE SOD PHOSPHATE 10 MG/ML 1 ML VIAL IVP SCH ×2 (10:04→20:28)
[2021-10-05] MEDS: METOPROLOL SUCCINATE (ER) 25 MG TAB.ER.24H PO SCH (10:04)
[2021-10-05] MEDS: polyethylene glycoL 3350 17 GM POWD.PACK PO SCH (10:05)
--- NOTE | 2021-10-05 10:13 | P.PN ---
Subjective Progress Note Date: 10/05/21 Principal diagnosis: COVID-19 pneumonia The patient is seen today 10/04/2021 in follow-up on the selective care unit. She is currently sitting up in bed. Awake and alert in no acute distress. She is breathing easier today compared to yesterday. She has been transitioned over to 10 L high flow nasal cannula. She's been afebrile. Hemodynamically stable. O2 saturations in the high 80s low 90s. Blood glucose 194. She is maintained on Decadron, Eliquis, vitamin supplements. Sugars controlled with Levemir and NovoLog. Remains on bronchodilators. The patient is seen today 10/05/2021 in follow-up on the selective care unit. She is currently sitting up in bed. Awake and alert in no acute distress. She is feeling stronger each day. Less short of breath. She is still requiring 8 L high flow nasal cannula to maintain O2 saturation the high 80s low 90s. She's been afebrile. Hemodynamically stable. Blood cultures revealed no growth. Blood glucose 121. Currently in a -730 ML balance. Remains on Decadron, Eliquis, vitamin supplements. Levemir and NovoLog for blood glucose control. Objective - Vital Signs Vital signs: Vital Signs Temp 97.7 F 10/05/21 04:00 Pulse 89 10/05/21 04:00 Resp 26 H 10/05/21 04:00 BP 137/75 10/05/21 04:00 Pulse Ox 88 L 10/05/21 04:00 Intake & Output 10/04/21 10/05/21 10/05/21 18:59 06:59 18:59 Intake Total 1380 560 240 Output Total 900 1801 375 Balance 480 -1241 -135 Intake: Oral 1380 560 240 Output: Urine 900 1800 375 Stool 1 Other: # Bowel Movements 1 - Exam GENERAL EXAM: Alert, very pleasant 71-year-old female patient, on 8 L high flow nasal cannula, comfortable in no apparent distress. HEAD: Normocephalic. EYES: Normal reaction of pupils, equal size. NOSE: Clear with pink turbinates. THROAT: No erythema or exudates. NECK: No masses, no JVD. CHEST: No chest wall deformity. LUNGS: Equal air entry with crackles in bilateral bases. CVS: S1 and S2 normal with no audible murmur, regular rhythm. ABDOMEN: No hepatosplenomegaly, normal bowel sounds, no guarding or rigidity. SPINE: No scoliosis or deformity SKIN: No rashes CENTRAL NERVOUS SYSTEM: No focal deficits, tone is normal in all 4 extremities. EXTREMITIES: There is no peripheral edema. No clubbing, no cyanosis. Peripheral pulses are intact. - Labs CBC & Chem 7: 10/03/21 07:10 10/03/21 07:10 Labs: Abnormal Lab Results - Last 24 Hours (Table) 10/04/21 10/04/21 10/05/21 Range/Units 16:23 20:28 05:56 POC Glucose (mg/dL) 180 H 145 H 121 H (75-99) mg/dL Assessment and Plan Assessment: 1 Acute on chronic hypoxemic respiratory failure secondary to acute COVID-19 pneumonia. The patient had previously been vaccinated. No booster. Unsure as to when her symptoms started. She is a poor historian. Currently on 8 L high flow nasal cannula. 2 Chronic hypoxemic respiratory failure secondary to interstitial lung disease, suspect secondary to rheumatoid arthritis, normally on 2 L nasal cannula 3 Rheumatoid arthritis previously on Xeljanz and Humira 4 History of sub-acute massive pulmonary embolism. Recommended long-term anticoagulation and remains on Eliquis 5 History of left lower extremity DVT, currently on Eliquis 6 Chronic obstructive pulmonary disease 7 Previous history of chronic tobacco dependence Plan: The patient was seen and evaluated Improving on 8 L high flow nasal cannula Continue to titrate the FiO2 as tolerated Continue Decadron, Eliquis, vitamin supplements Encouraged to continue to work with the incentive spirometer Increase her activity as tolerated We will continue to follow I, the cosigning physician, performed a history & physical examination of the patient. Lungs sounds are coarse crackles in the posterior bases. Maintaining O2 saturations in the 90s on 8 L high flow nasal cannula. I discussed the assessment and plan of care with my nurse practitioner, Suzy Donohue. I attest to the above note as dictated by her.
[2021-10-05 11:38] LABS: Glucose,Whole Blood 155 mg/dL (75-99)
--- NOTE | 2021-10-05 16:06 | P.PN ---
Subjective his is a 71-year-old female admitted with acute Covid pneumonia, acute on chronic hypoxic respiratory failure, new onset atrial fibrillation and multiple other medical issues. Patient developed atrial fibrillation with RVR last night transferred to telemetry and converted back to sinus rhythm prior to initiation of Cardizem drip. Anticoagulated with Eliquis. Denies chest pain, palpitations or chest pressure. Maintained on covid cocktail. Continues on 15 L high flow nasal cannula to maintain O2 sats in the 90s. Afebrile. Labs pending. Subjective: Start taking care of the patient 10/05/2021 This is a pleasant 71 years old female who presents with respiratory symptoms found to have bilateral Covid pneumonia and hypoxia and currently reports improvement in her breathing pattern and she can talk freely. She is saturating 90s on 82 oxygen via nasal cannula and she is currently being treated with vitamin C, D and zinc as well as Eliquis (started in the hospital), she is also on gentle hydration normal saline at 50 mL per hour and dexamethasone twice daily. Her chest x-ray showing bilateral infiltrate. Seton in his 0.21 and patient does not need antibiotics as there is no evidence of bacterial infection with no fever. Leukocytosis is 22,000 secondary to steroids. D-dimer is improving.2.0. LDH 954 which is elevated as well as C- reactive protein at 1.5. Objective - Vital Signs Vital signs: Vital Signs Temp 96.5 F L 10/05/21 08:00 Pulse 79 10/05/21 08:00 Resp 18 10/05/21 08:00 BP 125/83 10/05/21 08:00 Pulse Ox 88 L 10/05/21 08:00 Intake & Output 10/04/21 10/05/21 10/05/21 18:59 06:59 18:59 Intake Total 1380 560 240 Output Total 900 1801 375 Balance 480 -1241 -135 Intake: Oral 1380 560 240 Output: Urine 900 1800 375 Stool 1 Other: # Bowel Movements 1 - Exam GENERAL: The patient is alert and oriented x3, not in any acute distress. Well developed, well nourished. HEENT: Pupils are round and equally reacting to light. EOMI. No scleral icterus. No conjunctival pallor. Normocephalic, atraumatic. No pharyngeal erythema. No thyromegaly. CARDIOVASCULAR: S1 and S2 present. No murmurs, rubs, or gallops. PULMONARY: Chest is clear to auscultation, no wheezing or crackles. ABDOMEN: Soft, nontender, nondistended, normoactive bowel sounds. No palpable organomegaly. MUSCULOSKELETAL: No joint swelling or deformity. EXTREMITIES: No cyanosis, clubbing, or pedal edema. NEUROLOGICAL: Gross neurological examination did not reveal any focal deficits. SKIN: No rashes. no petechiae. - Labs CBC & Chem 7: 10/03/21 07:10 10/03/21 07:10 Labs: Abnormal Lab Results - Last 24 Hours (Table) 10/04/21 10/04/21 10/05/21 Range/Units 16:23 20:28 05:56 POC Glucose (mg/dL) 180 H 145 H 121 H (75-99) mg/dL 10/05/21 Range/Units 11:32 POC Glucose (mg/dL) 155 H (75-99) mg/dL Assessment and Plan Assessment: Bilateral Covid pneumonia Acute hypoxic respiratory failure Increased inflammatory markers Plan: This is a pleasant 71 years old female who presents with covid pneumonia Continue with dexamethasone Continue with vitamin C, vitamin D and zinc Pulmonary consult Labs and medication were reviewed.. Continue same treatment. Continue with symptomatic treatment. Resume home medication. Monitor lytes and vitals. DVT and GI prophylaxis. Further recommendationsas per clinical course of the patient DVT prophylaxis: Subcutaneous heparin GI Prophylaxis: Pepcid Prognosis is guarded
[2021-10-05 16:47] LABS: Glucose,Whole Blood 156 mg/dL (75-99)
[2021-10-05] MEDS: FAMOTIDINE 20 MG TAB PO SCH (17:23)
[2021-10-05 20:23] LABS: Glucose,Whole Blood 177 mg/dL (75-99)
[2021-10-05] MEDS: SENNOSIDES-DOCUSATE SODIUM 1 EACH TAB PO SCH (20:23)
[2021-10-05] MEDS: INSULIN DETEMIR (LEVEMIR) 100 UNIT/ML SYR SQ SCH (20:28)
[2021-10-06 06:34] LABS: Glucose,Whole Blood 103 mg/dL (75-99)
[2021-10-06] MEDS: INSULIN ASPART (NovoLOG) 100 UNIT/ML VIAL SQ SCH ×4 (06:35→21:42)
[2021-10-06] MEDS: ALBUTEROL HFA INHALER INHALATION PRN ×2 (08:49→11:44)
[2021-10-06] MEDS: polyethylene glycoL 3350 17 GM POWD.PACK PO SCH (09:01)
[2021-10-06] MEDS: CHOLECALCIFEROL 125 MCG (5000 IU) TABLET PO SCH (09:01)
[2021-10-06] MEDS: APIXABAN 5 MG TAB PO SCH ×2 (09:01→21:42)
[2021-10-06] MEDS: ASCORBIC ACID 500 MG TAB PO SCH (09:01)
[2021-10-06] MEDS: METOPROLOL SUCCINATE (ER) 25 MG TAB.ER.24H PO SCH (09:01)
[2021-10-06] MEDS: DEXAMETHASONE SOD PHOSPHATE 10 MG/ML 1 ML VIAL IVP SCH ×2 (09:01→21:42)
[2021-10-06] MEDS: ZINC SULFATE 220 MG CAP PO SCH (09:01)
[2021-10-06] MEDS: FAMOTIDINE 20 MG TAB PO SCH (09:02)
--- NOTE | 2021-10-06 10:31 | P.PN ---
Subjective his is a 71-year-old female admitted with acute Covid pneumonia, acute on chronic hypoxic respiratory failure, new onset atrial fibrillation and multiple other medical issues. Patient developed atrial fibrillation with RVR last night transferred to telemetry and converted back to sinus rhythm prior to initiation of Cardizem drip. Anticoagulated with Eliquis. Denies chest pain, palpitations or chest pressure. Maintained on covid cocktail. Continues on 15 L high flow nasal cannula to maintain O2 sats in the 90s. Afebrile. Labs pending. Subjective: Start taking care of the patient 10/05/2021 This is a pleasant 71 years old female who presents with respiratory symptoms found to have bilateral Covid pneumonia and hypoxia and currently reports improvement in her breathing pattern and she can talk freely. She is saturating 90s on 82 oxygen via nasal cannula and she is currently being treated with vitamin C, D and zinc as well as Eliquis (started in the hospital), she is also on gentle hydration normal saline at 50 mL per hour and dexamethasone twice daily. Her chest x-ray showing bilateral infiltrate. Seton in his 0.21 and patient does not need antibiotics as there is no evidence of bacterial infection with no fever. Leukocytosis is 22,000 secondary to steroids. D-dimer is improving.2.0. LDH 954 which is elevated as well as C- reactive protein at 1.5. 10/06/2021 Patient oxygen requirements went up today to 10 L/m, she does not feel worsening dyspnea but she still tachypneic at rest while sitting on the age of the bed. She denies chest pain she has good appetite with no diarrhea, no abdominal pain. Glucose control Hemodynamically stable. Remains on Eliquis, normal saline 50 mL/h, dexamethasone twice daily and mult iple vitamins Objective - Vital Signs Vital signs: Vital Signs Temp 97.6 F 10/06/21 08:45 Pulse 73 10/06/21 08:45 Resp 18 10/06/21 08:45 BP 118/77 10/06/21 08:45 Pulse Ox 86 L 10/06/21 08:45 Intake & Output 10/05/21 10/06/21 10/06/21 18:59 06:59 18:59 Intake Total 720 240 Output Total 375 325 Balance 345 -85 Intake: Oral 720 240 Output: Urine 375 325 Other: Voiding Method Bedside Commode # Voids 1 - Exam GENERAL: The patient is alert and oriented x3, not in any acute distress. Well developed, well nourished. HEENT: Pupils are round and equally reacting to light. EOMI. No scleral icterus. No conjunctival pallor. Normocephalic, atraumatic. No pharyngeal erythema. No thyromegaly. CARDIOVASCULAR: S1 and S2 present. No murmurs, rubs, or gallops. PULMONARY: Chest is clear to auscultation, no wheezing or crackles. ABDOMEN: Soft, nontender, nondistended, normoactive bowel sounds. No palpable organomegaly. MUSCULOSKELETAL: No joint swelling or deformity. EXTREMITIES: No cyanosis, clubbing, or pedal edema. NEUROLOGICAL: Gross neurological examination did not reveal any focal deficits. SKIN: No rashes. no petechiae. - Labs CBC & Chem 7: 10/03/21 07:10 10/03/21 07:10 Labs: Abnormal Lab Results - Last 24 Hours (Table) 10/05/21 10/05/21 10/05/21 Range/Units 11:32 16:45 20:20 POC Glucose (mg/dL) 155 H 156 H 177 H (75-99) mg/dL 10/06/21 Range/Units 06:32 POC Glucose (mg/dL) 103 H (75-99) mg/dL Assessment and Plan Assessment: Bilateral Covid pneumonia Acute hypoxic respiratory failure Increased inflammatory markers Plan: This is a pleasant 71 years old female who presents with covid pneumonia Continue with dexamethasone Continue with vitamin C, vitamin D and zinc Pulmonary consult Labs and medication were reviewed.. Continue same treatment. Continue with symptomatic treatment. Resume home medication. Monitor lytes and vitals. DVT and GI prophylaxis. Further recommendationsas per clinical course of the patient DVT prophylaxis: Subcutaneous heparin GI Prophylaxis: Pepcid Prognosis is guarded
[2021-10-06 11:32] LABS: Glucose,Whole Blood 127 mg/dL (75-99)
--- NOTE | 2021-10-06 11:54 | P.PN ---
Subjective Progress Note Date: 10/06/21 Principal diagnosis: Acute on chronic hypoxic respiratory failure secondary to COVID-19 pneumonia and underlying interstitial lung disease/rheumatoid lungs. 09/28/2021, the patient is stable. Remains on Airvo 55 L an FiO2 of 70%. No change in her condition in general. She is still in bed. She remains on Decadron 6 g IV every 24 hours. She is also on multivitamins pH is taking Levemir insulin 10 units for blood sugar control and she is also on a sliding scale coverage. No other significant events overnight. Her pulse ox is currently at 90%. She is afebrile. No new labs. Labs from yesterday was noted. LDH wasn't a 53 with a CRP of 0.7. D-dimer was at 5.2. She remains on long-term articulation with Eliquis. Essentially, no major change in her condition. 09/29/2021, the patient is on Airvo 50 L of an FiO2 of 60%. Doing well. No significant shortness of breath and she feels that she is gradually improving. She remains on Decadron 6 mg IV every 24 hours. No new complaints otherwise for now. She remains on long-term articulation with Eliquis. No significant hyperglycemia. No new labs otherwise from today. No altered mentation. No chest pain. No cough or sputum production. Reevaluated today on 09/30/2021, patient remains on high flow oxygen, on airvo and nonrebreather mask. And O2 saturation is 96%. Patient is feeling better today, hardly any cough, but she does have shortness of breath. No labs were noted today. Last chest x-ray was from 09/26 hence a follow-up chest x-ray was ordered to be done tomorrow. Reevaluated today on 10/06/2021, patient is feeling better, she is however on 8 L high flow nasal cannula, she is improving, but not quite ready to be discharged home. No major issues in the last 24 hours, we are hoping to get her on 5 L nasal cannula are less, and then we could consider discharging the patient home. Objective - Vital Signs Vital signs: Vital Signs Temp 97.6 F 10/06/21 08:45 Pulse 73 10/06/21 08:45 Resp 18 10/06/21 08:45 BP 118/77 10/06/21 08:45 Pulse Ox 86 L 10/06/21 08:45 Intake & Output 10/05/21 10/06/21 10/06/21 18:59 06:59 18:59 Intake Total 720 240 Output Total 375 325 Balance 345 -85 Intake: Oral 720 240 Output: Urine 375 325 Other: Voiding Method Bedside Commode # Voids 1 - Exam Physical Exam: Revealed a 71-year-old female in no distress, on 8 L high flow nasal cannula Head: Atraumatic, normocephalic. HEENT:[Neck is supple.] [No neck masses.] [No thyromegaly.] [No JVD.] Chest: [Symmetrical chest expansion, crackles at the bases. No rhonchi and no wheezes. Cardiac Exam: [Normal S1 and S2, no S3 gallop, no murmur.] Abdomen: [Soft, nontender, no megaly, no rebound, no guarding, normal bowel sounds.] Extremities: [No clubbing, no edema, no cyanosis.] Neurological Exam: [No focal neurologic deficit.] Psychiatric: Normal mood affect and normal mental status examination. Skin: No rashes. - Labs CBC & Chem 7: 10/03/21 07:10 10/03/21 07:10 Labs: Abnormal Lab Results - Last 24 Hours (Table) 10/05/21 10/05/21 10/06/21 Range/Units 16:45 20:20 06:32 POC Glucose (mg/dL) 156 H 177 H 103 H (75-99) mg/dL 10/06/21 Range/Units 11:30 POC Glucose (mg/dL) 127 H (75-99) mg/dL Assessment and Plan Assessment: Impression: Acute on chronic hypoxic respiratory failure secondary to COVID-19 pneumonia and underlying interstitial lung disease/rheumatoid lungs. 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 Recommendation: Continue oxygen and titrate accordingly Continue to monitor inflammatory markers. Continue Decadron. Continue Eliquis. Consider discharge planning once her oxygen requirement is less, 5 L or less Time with Patient: Less than 30
[2021-10-06 16:15] LABS: Glucose,Whole Blood 200 mg/dL (75-99)
[2021-10-06] MEDS: SODIUM CHLORIDE 0.9% 1,000 ML IV SCH (18:41)
[2021-10-06 20:05] LABS: Glucose,Whole Blood 186 mg/dL (75-99)
[2021-10-06] MEDS: SENNOSIDES-DOCUSATE SODIUM 1 EACH TAB PO SCH (21:42)
[2021-10-06] MEDS: INSULIN DETEMIR (LEVEMIR) 100 UNIT/ML SYR SQ SCH (21:48)
[2021-10-07 06:20] LABS: Glucose,Whole Blood 114 mg/dL (75-99)
[2021-10-07] MEDS: INSULIN ASPART (NovoLOG) 100 UNIT/ML VIAL SQ SCH ×4 (06:39→22:25)
[2021-10-07] MEDS: ALBUTEROL HFA INHALER INHALATION PRN ×2 (08:06→11:39)
[2021-10-07] MEDS: FAMOTIDINE 20 MG TAB PO SCH (08:12)
[2021-10-07] MEDS: METOPROLOL SUCCINATE (ER) 25 MG TAB.ER.24H PO SCH (08:12)
[2021-10-07] MEDS: APIXABAN 5 MG TAB PO SCH ×2 (08:12→22:25)
[2021-10-07] MEDS: ASCORBIC ACID 500 MG TAB PO SCH (08:12)
[2021-10-07] MEDS: CHOLECALCIFEROL 125 MCG (5000 IU) TABLET PO SCH (08:12)
[2021-10-07] MEDS: DEXAMETHASONE SOD PHOSPHATE 10 MG/ML 1 ML VIAL IVP SCH ×2 (08:12→22:26)
[2021-10-07] MEDS: ZINC SULFATE 220 MG CAP PO SCH (08:12)
[2021-10-07] MEDS: polyethylene glycoL 3350 17 GM POWD.PACK PO SCH (08:12)
[2021-10-07 11:46] LABS: Glucose,Whole Blood 280 mg/dL (75-99)
[2021-10-07] MEDS ORDERED: INSULIN ASPART (NovoLOG) 100 UNIT/ML VIAL SQ ONE (11:56)
[2021-10-07] MEDS: SODIUM CHLORIDE 0.9% 1,000 ML IV SCH (12:03)
--- NOTE | 2021-10-07 15:24 | P.PN ---
Subjective Progress Note Date: 10/07/21 Principal diagnosis: COVID-19 pneumonia On 10/01/2021 patient seen in follow-up on selective care unit, she currently remains on irritable at 50% FiO2 of 50% and a nonrebreather mask, and her pulse ox is 94%, still continues to require high flow oxygen, however she denies any w orsening dyspnea, patient is able to talk in full sentences, she has been speaking quite extensively on the phone, tolerates it quite well. However she states her chest feels a little tight today and she feels as if she cannot take a deep breath. No fever or chills, vital signs have been stable, no cough, no phlegm production, no hemoptysis. She currently remains on Decadron 6 mg daily, she remains on multivitamins, she is on oral anticoagulation in the form of Eliquis. Sounds reveal diffuse coarse crackles, follow-up chest x-ray today showing interstitial and groundglass opacities persisting within the lungs. No change from prior exam. His labs have been reviewed, her white blood cell count was 12.7, hemoglobin is 12.7, sodium is 133, rest of electrolytes were within normal limits, B1 is 21 creatinine 0.72. Inflammatory markers are improving, LDH is 892, and CRP is 3.5 on today's labs, denies any nausea vomiting or diarrhea, she is tolerating oral intake. On 10/02/2021 patient seen in follow-up on selective care unit, currently she is resting comfortably in bed, has exertional dyspnea but does not appear to be in any acute distress, occasional cough, with mild congestion, no phlegm production, she is working on incentive spirometer, she is achieving 1.5 L on it. Lung sounds revealed mild scattered bibasilar crackles, her Airvo settings today at 45 L and FiO2 of 50% and her pulse ox is ranging between 89-93%. We increased her dose of Decadron to twice daily at 6 mg, she continues on oral intake regulation in the form of Eliquis, she is on multivitamins and a gentle IV hydration with 0.9 normal saline at a rate of 50 ML per hour, she's had no acute events overnight. Yesterday's chest x-ray showed interstitial and groundglass opacities changes persisting within the lungs, similar to prior exam without significant change. Her inflammatory markers were improving and yesterday's labs, today's levels are still pending. Patient is tolerating oral intake, no nausea or vomiting, no diarrhea. No abdominal pain. On 10/03/2021 patient seen in follow-up on selective care unit, she remains on Airvo, currently at 45 L and FiO2 of 50%, her pulse ox is ranging between 90- 94%, occasional cough, no phlegm production, still has significant exertional dyspnea, takes a while to recover, however still tolerates activity well, she gets up to the bedside, phone, she participates in her own care including assisting with baths. Lung sounds are relatively clear, but very minimal rhonchi, no complaints of chest discomfort, vital signs have been stable, no fevers overnight. Today's chest x-ray showing diffuse interstitial infiltrates and patchy peripheral infiltrates left greater than right with some slight interval improvement on the left. Patient remains on Decadron 6 mg twice daily, on oral anticoagulation with Eliquis, no nausea vomiting or diarrhea. His labs have been reviewed showing white blood cell count of 22.9, hemoglobin of 11.3, d-dimer is 2.03, sodium is 135, potassium is 4.1, chloride is 106, CO2 is 21, BUN is 30 creatinine 0.75. LDH is 954, a bit increased, and CRP is improving down to 1.5. On 10/07/2021 patient seen in follow-up on the selective care unit. Patient is currently up in the chair, in no acute distress, she is currently on 10 L of oxygen the pulse ox of 89%, breathing comfortably, afebrile, hemodynamically she's been stable, she does desaturate with exertion, and for that reason her oxygen was increased from 7 L to 10 L today. She does recover, currently satting 94% on 10 L, and FiO2 has been dropped back down to 8 L. Currently on Decadron 6 mg twice daily, she is on Eliquis, she is on multivitamins. Her inflammatory markers were improving, her last set was done on 10/03/2021 showing LDH of 954, CRP of 1.5. Objective - Vital Signs Vital signs: Vital Signs Temp 97.7 F 10/07/21 11:26 Pulse 65 10/07/21 14:00 Resp 20 10/07/21 14:00 BP 134/75 02/14/22 11:26 Pulse Ox 89 L 10/07/21 11:27 Intake & Output 10/06/21 10/07/21 10/07/21 18:59 06:59 18:59 Intake Total 720 400 Output Total 325 Balance 395 400 Intake: Intake, IV Titration 400 Amount Sodium Chloride 0.9% 1, 400 000 ml @ 50 mls/hr IV . Q20H [facility] Rx#:[id number] Oral 720 Output: Urine 325 Other: Voiding Method Bedside Commode Bedside Commode Bedside Commode # Voids 1 1 - Exam GENERAL EXAM: Alert, very pleasant, 71-year-old white female, on 10 L per high flow nasal cannula with pulse ox of 89-94%, sitting up in the recliner, comfortable in no apparent distress. HEAD: Normocephalic/atraumatic. EYES: Normal reaction of pupils, equal size. Conjunctiva pink, sclera white. NOSE: Clear with pink turbinates. THROAT: No erythema or exudates. NECK: No masses, no JVD, no thyroid enlargement, no adenopathy. CHEST: No chest wall deformity. Symmetrical expansion. LUNGS: Equal air entry with diffuse coarse crackles bilaterally CVS: Regular rate and rhythm, normal S1 and S2, no gallops, no murmurs, no rubs ABDOMEN: Soft, nontender. No hepatosplenomegaly, normal bowel sounds, no guarding or rigidity. EXTREMITIES: No clubbing, no edema, no cyanosis, 2+ pulses and upper and lower extremities. MUSCULOSKELETAL: Muscle strength and tone normal. SPINE: No scoliosis or deformity SKIN: No rashes CENTRAL NERVOUS SYSTEM: Alert and oriented -3. No focal deficits, tone is normal in all 4 extremities. PSYCHIATRIC: Alert and oriented -3. Appropriate affect. Intact judgment and insight. - Labs CBC & Chem 7: 10/03/21 07:10 10/03/21 07:10 Labs: Abnormal Lab Results - Last 24 Hours (Table) 10/06/21 10/06/21 10/07/21 Range/Units 16:13 20:03 06:19 POC Glucose (mg/dL) 200 H 186 H 114 H (75-99) mg/dL 10/07/21 Range/Units 11:41 POC Glucose (mg/dL) 280 H (75-99) mg/dL Assessment and Plan Plan: Assessment: #1. Acute on chronic hypoxic respiratory failure secondary to acute COVID-19 related pneumonia and history of interstitial lung disease. Patient had interval worsening in her oxygenation. Patient is chronically Immunosuppressed related to a history of taking Humira and Xeljanz on an outpatient basis. She currently remains on Decadron. Her hypoxia has significantly improved, and she is weaned off the Airvo and is currently on high flow nasal cannula at 10 L #2. 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 History of rheumatoid arthritis #4. 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 History of left lower extremity DVT #6. History of COPD #7. Former history of chronic tobacco dependence #8. Elevated inflammatory markers related to acute COVID-19 related infection, improving Plan: Clinically remains stable, Continues to improve, currently on 10 L per high flow nasal cannula Continue to wean FiO2 to keep O2 sats at 90% or above Continue current dose Decadron, multivitamins, continue oral anticoagulation Increase activity as tolerated Obtain follow-up inflammatory markers, basic labs and chest x-ray tomorrow Once the patient is down to 5 L or less may consider discharge home I performed a history & physical examination of the patient and discussed their management with my nurse practitioner, Leslie Garza. I reviewed the nurse practitioner's note and agree with the documented findings and plan of care. Lung sounds are positive for throughout the lung hurt. The findings and the impression was discussed with the patient. I attest to the documentation by the nurse practitioner. Time with Patient: Less than 30
--- NOTE | 2021-10-07 16:37 | P.PN ---
Subjective Progress Note Date: 10/07/21 This is a 71-year-old female admitted with acute Covid pneumonia, acute on chronic hypoxic respiratory failure, new onset atrial fibrillation and multiple other medical issues. Patient developed atrial fibrillation with RVR last night transferred to telemetry and converted back to sinus rhythm prior to initiation of Cardizem drip. Anticoagulated with Eliquis. Denies chest pain, palpitations or chest pressure. Maintained on covid cocktail. Continues on 15 L high flow nasal cannula to maintain O2 sats in the 90s. Afebrile. Labs pending. 09/24/2021 maintained on COVID cocktail. Anticoagulated with Eliquis. continues on high flow nasal cannula 15 L/100% facemask maintaining O2 sats in the low 9 0s. Reports nonproductive cough. Denies increased shortness of breath.LDL decreased to 1058, CRP down to 3.7. Maintain sinus rhythm. Denies chest pain, chest pressure or palpitations. Echo pending. 09/25/21 maintaining O2 sats in the low 90s on airflow 55/75 FIO2. Continues on covid cocktail. Sitting up in bed, denies chest pain, chest pressure, or cough. Denies nausea vomiting or diarrhea. Reports she's freezing -room is cold. Afebrile. Limited echo reporting normal LV function, right ventricle mild to moderately enlarged. 09/26/2021 continues on Covid Cocktail. continues to feel well, denies cough. Afebrile, denies any chills. Maintaining O2 sats in the low 90s to high 80s on airvo 55 L/70% Fio2. Denies any chest pain, chest pressure palpitations or increasing shortness of breath. Afebrile, d-dimer 5.2 LDH, CRP improving. Chest x-ray reports unchanged. 09/27/2021 Feels better today ,reports able to deep breath easier. Denies cough.Maintaining O2 sats in the 90s on flow rate 55/ 70 Fio2. Continues on Covid cocktail .Afebrile, WBC 16.1. Anticoagulated on Eliquis. 09/30/2021 maintained on airflow, flow rate 50, FiO2 55%, maintaining O2 sat in the low 90s. Denies any increased shortness of breath.Denies nausea vomiting, denies cough. Afebrile. Complains of constipation. Denies chest pain, palpitations or chest pressure. Denies lightheadedness dizziness or focal deficits. 10/01/2021 reports doing well, asymptomatic on AIRVO 50% plus nonrebreather, maintaining O2 sats in the 90s. Denies shortness of breath. Denies chest pressure. Reports achy joints-reports common with her rheumatoid arthritis;could be covid related. Denies nausea vomiting or diarrhea. no overnight events. Decadron increased yesterday .Maintained on AIrvo 45L/Fio2 50%, maintaining O2 sats in the high 80s to low 90s. Denies nausea vomiting or diarrhea. Denies chest pain, palpitations. Reports increased shortness of breath with minimal exertion.LAbs pending. Afebrile. 10/03/2021 Airvo 45L/FIO2 50%, O2 sats in the low 90s. Chest x-ray pending. Afebrile. Labs pending. Reports exertional shortness of breath. Denies chest pain, palpitations. Denies nausea vomiting or diarrhea. Denies lightheadedness, dizziness or focal deficits. 10/04/2021 continues on Covid Cocktail. maintaining O2 sats in the high 80s to low 90s on 10 L high flow nasal cannula. Occasional nonproductive cough. Reports she had been up in the chair, yesterday. Denies nausea vomiting or diarrhea. Blood sugars controlled. 10/07/2021 exertional dyspnea, currently sitting up in bed wrapped up in her blankets maintaining O2 sats in the high 80s on 6 L high flow nasal cannula. Reports feeling "chilled", afebrile. This morning oxygen requirements has been up and down between 6-10 L. Continues on covid cocktail. Last bowel movement documented on 10/05/2021. Objective - Vital Signs Vital signs: Vital Signs Temp 98.0 F 10/07/21 16:00 Pulse 79 10/07/21 16:00 Resp 19 10/07/21 16:00 BP 113/66 10/07/21 16:00 Pulse Ox 92 L 10/07/21 16:00 Intake & Output 10/06/21 10/07/21 10/07/21 18:59 06:59 18:59 Intake Total 720 400 Output Total 325 Balance 395 400 Intake: Intake, IV Titration 400 Amount Sodium Chloride 0.9% 1, 400 000 ml @ 50 mls/hr IV . Q20H [facility] Rx#:[id number] Oral 720 Output: Urine 325 Other: Voiding Method Bedside Commode Bedside Commode Bedside Commode # Voids 1 1 - Exam PHYSICAL EXAMINATION: GENERAL: Alert and oriented 3 ,sitting up in bed, no acute distress HEENT: Normocephalic. Neck is supple. Pupils reactive. Oral mucosa moist. Neck: Supple, no JVD. CHEST EXAMINATION: Nonlabored, Symmetrical expansion. Coarse ,Diminished air sounds. CARDIAC: Normal S1, S2 with no gallops. No murmurs. ABDOMEN: Soft. Bowel sounds normal.No organomegaly. No guarding, +BS. Extremities: no edema. No clubbing or cyanosis. Neurological: Cranial nerves II-12 grossly intact .No focal deficits noted Skin: No rash, warm and dry - Labs CBC & Chem 7: 10/03/21 07:10 10/03/21 07:10 Labs: Abnormal Lab Results - Last 24 Hours (Table) 10/06/21 10/07/21 10/07/21 Range/Units 20:03 06:19 11:41 POC Glucose (mg/dL) 186 H 114 H 280 H (75-99) mg/dL Assessment and Plan Assessment: Acute on chronic hypoxemic respiratory failure secondary to COVID-19 pneumonia. Patient is vaccinated X 2 doses. Atrial fibrillation new onset. Chronic hypoxic respiratory failure secondary to interstitial lung disease due to rheumatoid arthritis on 2 L oxygen via nasal cannula. Lactic acidosis Rheumatoid arthritis Arthralgia, probably related to rheumatoid arthritis, possibly related to Covid. 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 Covid Cocktail.Weaning of O2 in progress.aggressive pulmonary toileting with incentive spirometer reinforced .discharge planning soon.Prognosis guarded given multiple complex medical issues. The impression and plan of care has been dictated as directed. : I performed a history and examination of this patient, discussed the same with the dictator. I agree with the dictator's note ,documented as a scribe. Any additional findings or plans will be noted.
[2021-10-07 16:50] LABS: Glucose,Whole Blood 113 mg/dL (75-99)
[2021-10-07 20:55] LABS: Glucose,Whole Blood 286 mg/dL (75-99)
[2021-10-07] MEDS: INSULIN DETEMIR (LEVEMIR) 100 UNIT/ML SYR SQ SCH (22:26)
[2021-10-07] MEDS: SENNOSIDES-DOCUSATE SODIUM 1 EACH TAB PO SCH (22:26)
[2021-10-08 05:57] LABS: Anisocytosis Slight; Basophils % (A) 0 %; Eosinophils # (A) 0.1 k/uL (0-0.7); Eosinophils % (A) 0 %; HCT 35.8 % (34.0-46.0); HGB 11.1 gm/dL (11.4-16.0); Hypochromasia Moderate; Lymphocytes # (A) 0.3 k/uL (1.0-4.8); Lymphocytes % (A) 2 %; MCH 29.1 pg (25.0-35.0); MCHC 30.9 g/dL (31.0-37.0); MCV 94.4 fL (80.0-100.0); Mean Platelet Volume 8.5; Monocytes # (A) 0.4 k/uL (0-1.0); Monocytes % (A) 3 %; Neutrophils # (A) 13.4 k/uL (1.3-7.7); Neutrophils % (A) 94 %; Platelet Count 311 k/uL (150-450); RDW 16.2 % (11.5-15.5); WBC 14.2 k/uL (3.8-10.6)
[2021-10-08 06:09] LABS: ALT 24 U/L (4-34); AST 27 U/L (14-36); African American GFR (CKD) >90 (>60 ml/min/1.73 sqM); Albumin 2.7 g/dL (3.5-5.0); Alkaline Phosphatase 78 U/L (38-126); Anion Gap 1 mmol/L; Blood Urea Nitrogen 20 mg/dL (7-17); Carbon Dioxide 26 mmol/L (22-30); Chloride 108 mmol/L (98-107); Glucose 103 mg/dL (74-99); LDH 1009 U/L (313-618); Magnesium 2.2 mg/dL (1.6-2.3); Non-African American GFR(CKD) 78 (>60 ml/min/1.73 sqM); Potassium 4.3 mmol/L (3.5-5.1); Sodium 135 mmol/L (137-145); Total Bilirubin 0.4 mg/dL (0.2-1.3); Total Protein 5.9 g/dL (6.3-8.2)
[2021-10-08 06:24] LABS: Glucose,Whole Blood 116 mg/dL (75-99)
[2021-10-08] MEDS: INSULIN ASPART (NovoLOG) 100 UNIT/ML VIAL SQ SCH ×4 (06:27→21:00)
[2021-10-08] MEDS: SODIUM CHLORIDE 0.9% 1,000 ML IV SCH (06:27)
--- NOTE | 2021-10-08 07:10 | XR ---
EXAMINATION TYPE: XR chest 1V portable DATE OF EXAM: 10/08/2021 CLINICAL HISTORY: Difficulty breathing and COVID progress study. TECHNIQUE: Single AP portable upright view of the chest is obtained. COMPARISON: Chest x-ray from 5 days earlier and older studies. FINDINGS: Osseous structures remain demineralized. Persistent increased opacities left mid to lower lung thought Stable. Persistent increased reticular markings bilaterally. Cardiac silhouette size sta ble and within normal limits. IMPRESSION: Background chronic parenchymal fibrotic changes bilaterally redemonstrated. Stable left l ower lung opacity could reflect acute infiltrate and/or atelectasis.
[2021-10-08 07:42] LABS: C Reactive Protein 0.7 mg/dL (<1.0)
[2021-10-08] MEDS: APIXABAN 5 MG TAB PO SCH ×2 (07:53→21:00)
[2021-10-08] MEDS: ZINC SULFATE 220 MG CAP PO SCH (07:53)
[2021-10-08] MEDS: CHOLECALCIFEROL 125 MCG (5000 IU) TABLET PO SCH (07:53)
[2021-10-08] MEDS: DEXAMETHASONE SOD PHOSPHATE 10 MG/ML 1 ML VIAL IVP SCH (07:54)
[2021-10-08] MEDS: FAMOTIDINE 20 MG TAB PO SCH (07:54)
[2021-10-08] MEDS: METOPROLOL SUCCINATE (ER) 25 MG TAB.ER.24H PO SCH (07:54)
[2021-10-08] MEDS: ASCORBIC ACID 500 MG TAB PO SCH (07:54)
[2021-10-08] MEDS: polyethylene glycoL 3350 17 GM POWD.PACK PO SCH (07:54)
[2021-10-08] MEDS: ALBUTEROL HFA INHALER INHALATION PRN (10:14)
--- NOTE | 2021-10-08 11:39 | P.PN ---
Subjective Progress Note Date: 10/08/21 Principal diagnosis: COVID-19 pneumonia The patient is seen today 10/04/2021 in follow-up on the selective care unit. She is currently sitting up in bed. Awake and alert in no acute distress. She is breathing easier today compared to yesterday. She has been transitioned over to 10 L high flow nasal cannula. She's been afebrile. Hemodynamically stable. O2 saturations in the high 80s low 90s. Blood glucose 194. She is maintained on Decadron, Eliquis, vitamin supplements. Sugars controlled with Levemir and NovoLog. Remains on bronchodilators. The patient is seen today 10/05/2021 in follow-up on the selective care unit. She is currently sitting up in bed. Awake and alert in no acute distress. She is feeling stronger each day. Less short of breath. She is still requiring 8 L high flow nasal cannula to maintain O2 saturation the high 80s low 90s. She's been afebrile. Hemodynamically stable. Blood cultures revealed no growth. Blood glucose 121. Currently in a -730 ML balance. Remains on Decadron, Eliquis, vitamin supplements. Levemir and NovoLog for blood glucose control. The patient is seen today 10/08/2021 in follow-up on the selective care unit. She is currently awake and alert in no acute distress. Resting fairly comfortably in bed. She did have an episode this morning where staff and just put her on a bedpan and she desaturated to 55% and it took her quite some time to recover. She is still on 6 L high flow nasal cannula. Chest x-ray continues to show persistent increased opacities in the left greater than right lung field s. White count 14.2. Hemoglobin 11.1. Lymphocytes 0.3. Sodium 135. Potassium 4.3. Creatinine 0.77. Glucose 103. LDH 1009. C-reactive protein 0.7. She is continued on Decadron 6 mg twice a day, Eliquis and vitamin supplements. Objective - Vital Signs Vital signs: Vital Signs Temp 98.0 F 10/08/21 07:59 Pulse 75 10/08/21 08:00 Resp 24 10/08/21 10:41 BP 104/71 10/08/21 07:59 Pulse Ox 80 L 10/08/21 10:41 Intake & Output 10/07/21 10/08/21 10/08/21 18:59 06:59 18:59 Intake Total 400 540 480 Output Total 1 Balance 400 540 479 Intake: Intake, IV Titration 400 Amount Sodium Chloride 0.9% 1, 400 000 ml @ 50 mls/hr IV . Q20H [facility] Rx#:[id number] Oral 540 480 Output: Stool 1 Other: Voiding Method Bedside Commode Bedside Commode Bedside Commode # Voids 1 1 - Exam GENERAL EXAM: Alert, very pleasant 71-year-old female patient, on 6 L high flow nasal cannula, comfortable in no apparent distress. HEAD: Normocephalic. EYES: Normal reaction of pupils, equal size. NOSE: Clear with pink turbinates. THROAT: No erythema or exudates. NECK: No masses, no JVD. CHEST: No chest wall deformity. LUNGS: Equal air entry with crackles in bilateral bases. CVS: S1 and S2 normal with no audible murmur, regular rhythm. ABDOMEN: No hepatosplenomegaly, normal bowel sounds, no guarding or rigidity. SPINE: No scoliosis or deformity SKIN: No rashes CENTRAL NERVOUS SYSTEM: No focal deficits, tone is normal in all 4 extremities. EXTREMITIES: There is no peripheral edema. No clubbing, no cyanosis. Per ipheral pulses are intact. - Labs CBC & Chem 7: 10/08/21 05:34 10/08/21 05:34 Labs: Abnormal Lab Results - Last 24 Hours (Table) 10/07/21 10/07/21 10/07/21 Range/Units 11:41 16:42 20:53 WBC (3.8-10.6) k/uL Hgb (11.4-16.0) gm/dL MCHC (31.0-37.0) g/dL RDW (11.5-15.5) % Neutrophils # (1.3-7.7) k/uL Lymphocytes # (1.0-4.8) k/uL Sodium (137-145) mmol/L Chloride (98-107) mmol/L BUN (7-17) mg/dL Glucose (74-99) mg/dL POC Glucose (mg/dL) 280 H 113 H 286 H (75-99) mg/dL Calcium (8.4-10.2) mg/dL Lactate Dehydrogenase (313-618) U/L Total Protein (6.3-8.2) g/dL Albumin (3.5-5.0) g/dL 10/08/21 10/08/21 10/08/21 Range/Units 05:34 05:34 06:22 WBC 14.2 H (3.8-10.6) k/uL Hgb 11.1 L (11.4-16.0) gm/dL MCHC 30.9 L (31.0-37.0) g/dL RDW 16.2 H (11.5-15.5) % Neutrophils # 13.4 H (1.3-7.7) k/uL Lymphocytes # 0.3 L (1.0-4.8) k/uL Sodium 135 L (137-145) mmol/L Chloride 108 H (98-107) mmol/L BUN 20 H (7-17) mg/dL Glucose 103 H (74-99) mg/dL POC Glucose (mg/dL) 116 H (75-99) mg/dL Calcium 8.0 L (8.4-10.2) mg/dL Lactate Dehydrogenase 1009 H (313-618) U/L Total Protein 5.9 L (6.3-8.2) g/dL Albumin 2.7 L (3.5-5.0) g/dL Assessment and Plan Assessment: 1 Acute on chronic hypoxemic respiratory failure secondary to acute COVID-19 pneumonia. The patient had previously been vaccinated. No booster. Unsure as to when her symptoms started. She is a poor historian. Currently on 6 L high flow nasal cannula. Remains on IV Decadron 6 mg twice a day, Eliquis, vitamins. 2 Chronic hypoxemic respiratory failure secondary to interstitial lung disease, suspect secondary to rheumatoid arthritis, normally on 2 L nasal cannula 3 Rheumatoid arthritis previously on Xeljanz and Humira 4 History of sub-acute massive pulmonary embolism. Recommended long-term anticoagulation and remains on Eliquis 5 History of left lower extremity DVT, currently on Eliquis 6 Chronic obstructive pulmonary disease 7 Previous history of chronic tobacco dependence Plan: The patient was seen and evaluated She has been slow to progress Currently on 6 L high flow nasal cannula Continue to titrate the FiO2 as tolerated Continue Decadron, Eliquis, vitamin supplements Encouraged to continue to work with the incentive spirometer Increase her activity as tolerated We will continue to follow I, the cosigning physician, performed a history & physical examination of the patient. Lungs sounds are coarse crackles in the posterior bases. Maintaining O2 saturations in the 90s on 6 L high flow nasal cannula. I discussed the assessment and plan of care with my nurse practitioner, Suzy Donohue. I attest to the above note as dictated by her.
[2021-10-08 12:01] LABS: Glucose,Whole Blood 154 mg/dL (75-99)
--- NOTE | 2021-10-08 13:50 | P.PN ---
Subjective Progress Note Date: 10/08/21 This is a 71-year-old female admitted with acute Covid pneumonia, acute on chronic hypoxic respiratory failure, new onset atrial fibrillation and multiple other medical issues. Patient developed atrial fibrillation with RVR last night transferred to telemetry and converted back to sinus rhythm prior to initiation of Cardizem drip. Anticoagulated with Eliquis. Denies chest pain, palpitations or chest pressure. Maintained on covid cocktail. Continues on 15 L high flow nasal cannula to maintain O2 sats in the 90s. Afebrile. Labs pending. 09/24/2021 maintained on COVID cocktail. Anticoagulated with Eliquis. continues on high flow nasal cannula 15 L/100% facemask maintaining O2 sats in the low 9 0s. Reports nonproductive cough. Denies increased shortness of breath.LDL decreased to 1058, CRP down to 3.7. Maintain sinus rhythm. Denies chest pain, chest pressure or palpitations. Echo pending. 09/25/21 maintaining O2 sats in the low 90s on airflow 55/75 FIO2. Continues on covid cocktail. Sitting up in bed, denies chest pain, chest pressure, or cough. Denies nausea vomiting or diarrhea. Reports she's freezing -room is cold. Afebrile. Limited echo reporting normal LV function, right ventricle mild to moderately enlarged. 09/26/2021 continues on Covid Cocktail. continues to feel well, denies cough. Afebrile, denies any chills. Maintaining O2 sats in the low 90s to high 80s on airvo 55 L/70% Fio2. Denies any chest pain, chest pressure palpitations or increasing shortness of breath. Afebrile, d-dimer 5.2 LDH, CRP improving. Chest x-ray reports unchanged. 09/27/2021 Feels better today ,reports able to deep breath easier. Denies cough.Maintaining O2 sats in the 90s on flow rate 55/ 70 Fio2. Continues on Covid cocktail .Afebrile, WBC 16.1. Anticoagulated on Eliquis. 09/30/2021 maintained on airflow, flow rate 50, FiO2 55%, maintaining O2 sat in the low 90s. Denies any increased shortness of breath.Denies nausea vomiting, denies cough. Afebrile. Complains of constipation. Denies chest pain, palpitations or chest pressure. Denies lightheadedness dizziness or focal deficits. 10/01/2021 reports doing well, asymptomatic on AIRVO 50% plus nonrebreather, maintaining O2 sats in the 90s. Denies shortness of breath. Denies chest pressure. Reports achy joints-reports common with her rheumatoid arthritis;could be covid related. Denies nausea vomiting or diarrhea. no overnight events. Decadron increased yesterday .Maintained on AIrvo 45L/Fio2 50%, maintaining O2 sats in the high 80s to low 90s. Denies nausea vomiting or diarrhea. Denies chest pain, palpitations. Reports increased shortness of breath with minimal exertion.LAbs pending. Afebrile. 10/03/2021 Airvo 45L/FIO2 50%, O2 sats in the low 90s. Chest x-ray pending. Afebrile. Labs pending. Reports exertional shortness of breath. Denies chest pain, palpitations. Denies nausea vomiting or diarrhea. Denies lightheadedness, dizziness or focal deficits. 10/04/2021 continues on Covid Cocktail. maintaining O2 sats in the high 80s to low 90s on 10 L high flow nasal cannula. Occasional nonproductive cough. Reports she had been up in the chair, yesterday. Denies nausea vomiting or diarrhea. Blood sugars controlled. 10/07/2021 exertional dyspnea, currently sitting up in bed wrapped up in her blankets maintaining O2 sats in the high 80s on 6 L high flow nasal cannula. Reports feeling "chilled", afebrile. This morning oxygen requirements has been up and down between 6-10 L. Continues on covid cocktail. Last bowel movement documented on 10/05/2021. 10/08/2021 maintained on Covid cocktail .during the night, desatted, developed sinus tachycardia, spontaneously resolved with increased O2. Later this morning while getting up to bedside commode, desatted to 55% on 6 L high flow nasal cannula-minimal reserve, required approximately 10 minutes before O2 sats were up to 80%. Chest x-ray reporting redemonstrated background chronic small fibrotic changes bilaterally, stable left lower lung opacity. LDH increased, CRP decreased. Reports increased energy. Objective - Vital Signs Vital signs: Vital Signs Temp 98.0 F 10/08/21 12:00 Pulse 80 10/08/21 13:19 Resp 24 10/08/21 13:19 BP 133/84 10/08/21 12:00 Pulse Ox 86 L 10/08/21 12:00 Intake & Output 10/07/21 10/08/21 10/08/21 18:59 06:59 18:59 Intake Total 400 540 720 Output Total 2 Balance 400 540 718 Intake: Intake, IV Titration 400 Amount Sodium Chloride 0.9% 1, 400 000 ml @ 50 mls/hr IV . Q20H [facility] Rx#:[id number] Oral 540 720 Output: Stool 2 Other: Voiding Method Bedside Commode Bedside Commode Bedside Commode # Voids 1 1 2 - Exam PHYSICAL EXAMINATION: GENERAL: Alert and oriented 3 ,sitting up in bed, wrapped up in blankets. HEENT: Normocephalic. Neck is supple. Pupils reactive. Oral mucosa moist. Neck: Supple, no JVD. CHEST EXAMINATION: Nonlabored, Symmetrical expansion. Coarse ,Diminished air sounds. CARDIAC: Normal S1, S2 with no gallops. No murmurs. ABDOMEN: Soft. Bowel sounds normal.No organomegaly. No guarding, +BS. Extremities: no edema. No clubbing or cyanosis. Neurological: Cranial nerves II-12 grossly intact .No focal deficits noted Skin: No rash, warm and dry - Labs CBC & Chem 7: 10/08/21 05:34 10/08/21 05:34 Labs: Abnormal Lab Results - Last 24 Hours (Table) 10/07/21 10/07/21 10/08/21 Range/Units 16:42 20:53 05:34 WBC 14.2 H (3.8-10.6) k/uL Hgb 11.1 L (11.4-16.0) gm/dL MCHC 30.9 L (31.0-37.0) g/dL RDW 16.2 H (11.5-15.5) % Neutrophils # 13.4 H (1.3-7.7) k/uL Lymphocytes # 0.3 L (1.0-4.8) k/uL Sodium (137-145) mmol/L Chloride (98-107) mmol/L BUN (7-17) mg/dL Glucose (74-99) mg/dL POC Glucose (mg/dL) 113 H 286 H (75-99) mg/dL Calcium (8.4-10.2) mg/dL Lactate Dehydrogenase (313-618) U/L Total Protein (6.3-8.2) g/dL Albumin (3.5-5.0) g/dL 10/08/21 10/08/21 10/08/21 Range/Units 05:34 06:22 11:48 WBC (3.8-10.6) k/uL Hgb (11.4-16.0) gm/dL MCHC (31.0-37.0) g/dL RDW (11.5-15.5) % Neutrophils # (1.3-7.7) k/uL Lymphocytes # (1.0-4.8) k/uL Sodium 135 L (137-145) mmol/L Chloride 108 H (98-107) mmol/L BUN 20 H (7-17) mg/dL Glucose 103 H (74-99) mg/dL POC Glucose (mg/dL) 116 H 154 H (75-99) mg/dL Calcium 8.0 L (8.4-10.2) mg/dL Lactate Dehydrogenase 1009 H (313-618) U/L Total Protein 5.9 L (6.3-8.2) g/dL Albumin 2.7 L (3.5-5.0) g/dL Assessment and Plan Assessment: Acute on chronic hypoxemic respiratory failure secondary to COVID-19 pneumonia. Patient is vaccinated X 2 doses. Atrial fibrillation new onset. Chronic hypoxic respiratory failure secondary to interstitial lung disease due to rheumatoid arthritis on 2 L oxygen via nasal cannula. Lactic acidosis Rheumatoid arthritis Arthralgia, probably related to rheumatoid arthritis, possibly related to Covid. 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 Covid Cocktail.Weaning of O2 in progress.aggressive pulmonary toileting with incentive spirometer reinforced .discharge planning soon.Prognosis guarded given multiple complex medical issues. The impression and plan of care has been dictated as directed. : I performed a history and examination of this patient, discussed the same with the dictator. I agree with the dictator's note ,documented as a scribe. Any additional findings or plans will be noted.
[2021-10-08 16:32] LABS: Glucose,Whole Blood 226 mg/dL (75-99)
[2021-10-08 20:16] LABS: Glucose,Whole Blood 236 mg/dL (75-99)
[2021-10-09] MEDS: DEXAMETHASONE SOD PHOSPHATE 10 MG/ML 1 ML VIAL IVP SCH ×3 (07:04→20:46)
[2021-10-09 07:06] LABS: Glucose,Whole Blood 148 mg/dL (75-99)
[2021-10-09] MEDS: INSULIN ASPART (NovoLOG) 100 UNIT/ML VIAL SQ SCH ×4 (07:07→20:47)
[2021-10-09] MEDS: SENNOSIDES-DOCUSATE SODIUM 1 EACH TAB PO SCH ×2 (07:07→20:47)
[2021-10-09] MEDS: INSULIN DETEMIR (LEVEMIR) 100 UNIT/ML SYR SQ SCH ×2 (07:07→20:46)
[2021-10-09] MEDS: polyethylene glycoL 3350 17 GM POWD.PACK PO SCH (07:55)
[2021-10-09] MEDS: METOPROLOL SUCCINATE (ER) 25 MG TAB.ER.24H PO SCH (08:32)
[2021-10-09] MEDS: ZINC SULFATE 220 MG CAP PO SCH (08:32)
[2021-10-09] MEDS: CHOLECALCIFEROL 125 MCG (5000 IU) TABLET PO SCH (08:32)
[2021-10-09] MEDS: APIXABAN 5 MG TAB PO SCH ×2 (08:32→20:47)
[2021-10-09] MEDS: FAMOTIDINE 20 MG TAB PO SCH (08:32)
[2021-10-09] MEDS: ASCORBIC ACID 500 MG TAB PO SCH (08:33)
[2021-10-09] MEDS: SODIUM CHLORIDE 0.9% 1,000 ML IV SCH ×2 (08:33→22:27)
--- NOTE | 2021-10-09 11:49 | P.PN ---
Subjective Progress Note Date: 10/09/21 This is a 71-year-old female admitted with acute Covid pneumonia, acute on chronic hypoxic respiratory failure, new onset atrial fibrillation and multiple other medical issues. Patient developed atrial fibrillation with RVR last night transferred to telemetry and converted back to sinus rhythm prior to initiation of Cardizem drip. Anticoagulated with Eliquis. Denies chest pain, palpitations or chest pressure. Maintained on covid cocktail. Continues on 15 L high flow nasal cannula to maintain O2 sats in the 90s. Afebrile. Labs pending. 09/24/2021 maintained on COVID cocktail. Anticoagulated with Eliquis. continues on high flow nasal cannula 15 L/100% facemask maintaining O2 sats in the low 9 0s. Reports nonproductive cough. Denies increased shortness of breath.LDL decreased to 1058, CRP down to 3.7. Maintain sinus rhythm. Denies chest pain, chest pressure or palpitations. Echo pending. 09/25/21 maintaining O2 sats in the low 90s on airflow 55/75 FIO2. Continues on covid cocktail. Sitting up in bed, denies chest pain, chest pressure, or cough. Denies nausea vomiting or diarrhea. Reports she's freezing -room is cold. Afebrile. Limited echo reporting normal LV function, right ventricle mild to moderately enlarged. 09/26/2021 continues on Covid Cocktail. continues to feel well, denies cough. Afebrile, denies any chills. Maintaining O2 sats in the low 90s to high 80s on airvo 55 L/70% Fio2. Denies any chest pain, chest pressure palpitations or increasing shortness of breath. Afebrile, d-dimer 5.2 LDH, CRP improving. Chest x-ray reports unchanged. 09/27/2021 Feels better today ,reports able to deep breath easier. Denies cough.Maintaining O2 sats in the 90s on flow rate 55/ 70 Fio2. Continues on Covid cocktail .Afebrile, WBC 16.1. Anticoagulated on Eliquis. 09/30/2021 maintained on airflow, flow rate 50, FiO2 55%, maintaining O2 sat in the low 90s. Denies any increased shortness of breath.Denies nausea vomiting, denies cough. Afebrile. Complains of constipation. Denies chest pain, palpitations or chest pressure. Denies lightheadedness dizziness or focal deficits. 10/01/2021 reports doing well, asymptomatic on AIRVO 50% plus nonrebreather, maintaining O2 sats in the 90s. Denies shortness of breath. Denies chest pressure. Reports achy joints-reports common with her rheumatoid arthritis;could be covid related. Denies nausea vomiting or diarrhea. no overnight events. Decadron increased yesterday .Maintained on AIrvo 45L/Fio2 50%, maintaining O2 sats in the high 80s to low 90s. Denies nausea vomiting or diarrhea. Denies chest pain, palpitations. Reports increased shortness of breath with minimal exertion.LAbs pending. Afebrile. 10/03/2021 Airvo 45L/FIO2 50%, O2 sats in the low 90s. Chest x-ray pending. Afebrile. Labs pending. Reports exertional shortness of breath. Denies chest pain, palpitations. Denies nausea vomiting or diarrhea. Denies lightheadedness, dizziness or focal deficits. 10/04/2021 continues on Covid Cocktail. maintaining O2 sats in the high 80s to low 90s on 10 L high flow nasal cannula. Occasional nonproductive cough. Reports she had been up in the chair, yesterday. Denies nausea vomiting or diarrhea. Blood sugars controlled. 10/07/2021 exertional dyspnea, currently sitting up in bed wrapped up in her blankets maintaining O2 sats in the high 80s on 6 L high flow nasal cannula. Reports feeling "chilled", afebrile. This morning oxygen requirements has been up and down between 6-10 L. Continues on covid cocktail. Last bowel movement documented on 10/05/2021. 10/08/2021 maintained on Covid cocktail .during the night, desatted, developed sinus tachycardia, spontaneously resolved with increased O2. Later this morning while getting up to bedside commode, desatted to 55% on 6 L high flow nasal cannula-minimal reserve, required approximately 10 minutes before O2 sats were up to 80%. Chest x-ray reporting redemonstrated background chronic small fibrotic changes bilaterally, stable left lower lung opacity. LDH increased, CRP decreased. Reports increased energy. 10/09/2021 sitting up at side of bed, short of breath, maintaining O2 sats of high 80s to low 90s on 6 L high flow nasal cannula. Throughout yesterday patient significantly dropped O2 sat with minimal exertion, slow regaining adequate oxygen saturation. Discussed goal of discharge dependent upon m aintaining steady oxygenation. Afebrile. Objective - Vital Signs Vital signs: Vital Signs Temp 98.2 F 10/09/21 04:00 Pulse 65 10/09/21 04:00 Resp 18 10/09/21 04:00 BP 146/87 10/09/21 04:00 Pulse Ox 92 L 10/09/21 04:00 Intake & Output 10/08/21 10/09/21 10/09/21 18:59 06:59 18:59 Intake Total 720 Output Total 2 302 Balance 718 -302 Intake: Oral 720 Output: Urine 300 Stool 2 2 Other: Voiding Method Bedside Commode Bedside Commode # Voids 2 - Exam PHYSICAL EXAMINATION: GENERAL: Alert and oriented 3.sitting up at bedside, mild increase respiratory effort HEENT: Normocephalic. Neck is supple. Pupils reactive. Oral mucosa moist. Neck: Supple, no JVD. CHEST EXAMINATION: Nonlabored, Symmetrical expansion. Coarse ,Diminished air sounds. CARDIAC: Normal S1, S2 with no gallops. No murmurs. ABDOMEN: Soft. Bowel sounds normal.No organomegaly. No guarding, +BS. Extremities: no edema. No clubbing or cyanosis. Neurological: Cranial nerves II-12 grossly intact .No focal deficits noted Skin: No rash, warm and dry. - Labs CBC & Chem 7: 10/08/21 05:34 10/08/21 05:34 Labs: Abnormal Lab Results - Last 24 Hours (Table) 10/08/21 10/08/21 10/08/21 Range/Units 11:48 16:27 20:15 POC Glucose (mg/dL) 154 H 226 H 236 H (75-99) mg/dL 10/09/21 Range/Units 07:05 POC Glucose (mg/dL) 148 H (75-99) mg/dL Assessment and Plan Assessment: Acute on chronic hypoxemic respiratory failure secondary to COVID-19 pneumonia. Patient is vaccinated X 2 doses. Atrial fibrillation new onset. Chronic hypoxic respiratory failure secondary to interstitial lung disease due to rheumatoid arthritis on 2 L oxygen via nasal cannula. Lactic acidosis Rheumatoid arthritis Arthralgia, probably related to rheumatoid arthritis, possibly related to Covid. History of subacute massive PE and is currently on lifelong anticoagulation with Eliquis History of DVT left lower extremity COPD,hx Prior history of smoking Plan: Continue on current medication regime ,monitoring and symptomatic treatm ent.labs pending. Slow progression , has not been able to maintain steady oxygenation with minimal exertion-minimal reserve. Covid Cocktail.maintain aggressive pulmonary toileting with incentive spirometer reinforced .Prognosis guarded given multiple complex medical issues. The impression and plan of care has been dictated as directed. : I performed a history and examination of this patient, discussed the same with the dictator. I agree with the dictator's note ,documented as a scribe. Any additional findings or plans will be noted.
--- NOTE | 2021-10-09 12:05 | P.PN ---
Subjective Progress Note Date: 10/09/21 Principal diagnosis: COVID-19 pneumonia The patient is seen today 10/04/2021 in follow-up on the selective care unit. She is currently sitting up in bed. Awake and alert in no acute distress. She is breathing easier today compared to yesterday. She has been transitioned over to 10 L high flow nasal cannula. She's been afebrile. Hemodynamically stable. O2 saturations in the high 80s low 90s. Blood glucose 194. She is maintained on Decadron, Eliquis, vitamin supplements. Sugars controlled with Levemir and NovoLog. Remains on bronchodilators. The patient is seen today 10/05/2021 in follow-up on the selective care unit. She is currently sitting up in bed. Awake and alert in no acute distress. She is feeling stronger each day. Less short of breath. She is still requiring 8 L high flow nasal cannula to maintain O2 saturation the high 80s low 90s. She's been afebrile. Hemodynamically stable. Blood cultures revealed no growth. Blood glucose 121. Currently in a -730 ML balance. Remains on Decadron, Eliquis, vitamin supplements. Levemir and NovoLog for blood glucose control. The patient is seen today 10/08/2021 in follow-up on the selective care unit. She is currently awake and alert in no acute distress. Resting fairly comfortably in bed. She did have an episode this morning where staff and just put her on a bedpan and she desaturated to 55% and it took her quite some time to recover. She is still on 6 L high flow nasal cannula. Chest x-ray continues to show persistent increased opacities in the left greater than right lung field s. White count 14.2. Hemoglobin 11.1. Lymphocytes 0.3. Sodium 135. Potassium 4.3. Creatinine 0.77. Glucose 103. LDH 1009. C-reactive protein 0.7. She is continued on Decadron 6 mg twice a day, Eliquis and vitamin supplements. The patient is seen today 10/09/2021 in follow-up on [facility] care unit. Currently sitting up in bed. Awake and alert in no acute distress. Currently maintaining O2 saturations in the high 80s low 90s on 6 L high flow nasal cannula. She's been afebrile. Blood glucose 148. Continued on Decadron, Eliquis, vitamin supplements Objective - Vital Signs Vital signs: Vital Signs Temp 98.0 F 10/09/21 08:32 Pulse 103 H 10/09/21 08:32 Resp 26 H 10/09/21 08:32 BP 110/73 10/09/21 08:32 Pulse Ox 89 L 10/09/21 08:32 Intake & Output 10/08/21 10/09/21 10/09/21 18:59 06:59 18:59 Intake Total 720 260 Output Total 2 302 600 Balance 718 -302 -340 Intake: Oral 720 260 Output: Urine 300 600 Stool 2 2 Other: Voiding Method Bedside Commode Bedside Commode Bedside Commode # Voids 2 - Exam GENERAL EXAM: Alert, very pleasant 71-year-old female patient, on 6 L high flow nasal cannula, comfortable in no apparent distress. HEAD: Normocephalic. EYES: Normal reaction of pupils, equal size. NOSE: Clear with pink turbinates. THROAT: No erythema or exudates. NECK: No masses, no JVD. CHEST: No chest wall deformity. LUNGS: Equal air entry with crackles in bilateral bases. CVS: S1 and S2 normal with no audible murmur, regular rhythm. ABDOMEN: No hepatosplenomegaly, normal bowel sounds, no guarding or rigidity. SPINE: No scoliosis or deformity SKIN: No rashes CENTRAL NERVOUS SYSTEM: No focal deficits, tone is normal in all 4 extremities. EXTREMITIES: There is no peripheral edema. No clubbing, no cyanosis. Peripheral pulses are intact. - Labs CBC & Chem 7: 10/08/21 05:34 10/08/21 05:34 Labs: Abnormal Lab Results - Last 24 Hours (Table) 10/08/21 10/08/21 10/08/21 Range/Units 11:48 16:27 20:15 POC Glucose (mg/dL) 154 H 226 H 236 H (75-99) mg/dL 10/09/21 Range/Units 07:05 POC Glucose (mg/dL) 148 H (75-99) mg/dL Assessment and Plan Assessment: 1 Acute on chronic hypoxemic respiratory failure secondary to acute COVID-19 pneumonia. The patient had previously been vaccinated. No booster. Unsure as to when her symptoms started. She is a poor historian. Currently on 6 L high flow nasal cannula. Remains on IV Decadron 6 mg twice a day, Eliquis, vitamins. 2 Chronic hypoxemic respiratory failure secondary to interstitial lung disease, suspect secondary to rheumatoid arthritis, normally on 2 L nasal cannula 3 Rheumatoid arthritis previously on Xeljanz and Humira 4 History of sub-acute massive pulmonary embolism. Recommended long-term anticoagulation and remains on Eliquis 5 History of left lower extremity DVT, currently on Eliquis 6 Chronic obstructive pulmonary disease 7 Previous history of chronic tobacco dependence Plan: The patient was seen and evaluated Currently on 6 L high flow nasal cannula Continue to titrate the FiO2 as tolerated Continue Decadron for a total of 10 days Continue Eliquis, vitamin supplements Encouraged to continue to work with the incentive spirometer Increase her activity as tolerated Plan is for home with home care I, the cosigning physician, performed a history & physical examination of the patient. Lungs sounds are coarse crackles in the posterior bases. Maintaining O2 saturations in the 90s on 6 L high flow nasal cannula. I discussed the assessment and plan of care with my nurse practitioner, Suzy Donohue. I attest to the above note as dictated by her.
[2021-10-09 12:15] LABS: Glucose,Whole Blood 156 mg/dL (75-99)
[2021-10-09 16:26] LABS: Glucose,Whole Blood 232 mg/dL (75-99)
[2021-10-09 19:41] LABS: Glucose,Whole Blood 149 mg/dL (75-99)
[2021-10-10 06:06] LABS: Glucose,Whole Blood 125 mg/dL (75-99)
[2021-10-10] MEDS: INSULIN ASPART (NovoLOG) 100 UNIT/ML VIAL SQ SCH ×3 (06:07→16:30)
[2021-10-10] MEDS: ZINC SULFATE 220 MG CAP PO SCH (09:06)
[2021-10-10] MEDS: FAMOTIDINE 20 MG TAB PO SCH (09:06)
[2021-10-10] MEDS: APIXABAN 5 MG TAB PO SCH (09:06)
[2021-10-10] MEDS: DEXAMETHASONE SOD PHOSPHATE 10 MG/ML 1 ML VIAL IVP SCH (09:06)
[2021-10-10] MEDS: METOPROLOL SUCCINATE (ER) 25 MG TAB.ER.24H PO SCH (09:06)
[2021-10-10] MEDS: ASCORBIC ACID 500 MG TAB PO SCH (09:06)
[2021-10-10] MEDS: CHOLECALCIFEROL 125 MCG (5000 IU) TABLET PO SCH (09:06)
[2021-10-10] MEDS: polyethylene glycoL 3350 17 GM POWD.PACK PO SCH (09:07)
[2021-10-10 11:30] LABS: Glucose,Whole Blood 201 mg/dL (75-99)
--- NOTE | 2021-10-10 11:31 | P.PN ---
Subjective Progress Note Date: 10/10/21 Principal diagnosis: COVID-19 pneumonia The patient is seen today 10/04/2021 in follow-up on the selective care unit. She is currently sitting up in bed. Awake and alert in no acute distress. She is breathing easier today compared to yesterday. She has been transitioned over to 10 L high flow nasal cannula. She's been afebrile. Hemodynamically stable. O2 saturations in the high 80s low 90s. Blood glucose 194. She is maintained on Decadron, Eliquis, vitamin supplements. Sugars controlled with Levemir and NovoLog. Remains on bronchodilators. The patient is seen today 10/05/2021 in follow-up on the selective care unit. She is currently sitting up in bed. Awake and alert in no acute distress. She is feeling stronger each day. Less short of breath. She is still requiring 8 L high flow nasal cannula to maintain O2 saturation the high 80s low 90s. She's been afebrile. Hemodynamically stable. Blood cultures revealed no growth. Blood glucose 121. Currently in a -730 ML balance. Remains on Decadron, Eliquis, vitamin supplements. Levemir and NovoLog for blood glucose control. The patient is seen today 10/08/2021 in follow-up on the selective care unit. She is currently awake and alert in no acute distress. Resting fairly comfortably in bed. She did have an episode this morning where staff and just put her on a bedpan and she desaturated to 55% and it took her quite some time to recover. She is still on 6 L high flow nasal cannula. Chest x-ray continues to show persistent increased opacities in the left greater than right lung field s. White count 14.2. Hemoglobin 11.1. Lymphocytes 0.3. Sodium 135. Potassium 4.3. Creatinine 0.77. Glucose 103. LDH 1009. C-reactive protein 0.7. She is continued on Decadron 6 mg twice a day, Eliquis and vitamin supplements. The patient is seen today 10/09/2021 in follow-up on [facility] care unit. Currently sitting up in bed. Awake and alert in no acute distress. Currently maintaining O2 saturations in the high 80s low 90s on 6 L high flow nasal cannula. She's been afebrile. Blood glucose 148. Continued on Decadron, Eliquis, vitamin supplements. The patient is seen today 10/10/2021 in follow-up on the selective care unit. She is currently sitting up in a chair at the bedside. Awake and alert in no acute distress. Currently on 6 L high flow nasal cannula. She's been afebrile. Blood cultures reveal no growth. Blood glucose 125. She is continued on Eliquis, Decadron, vitamin supplements. Objective - Vital Signs Vital signs: Vital Signs Temp 97.9 F 10/10/21 08:10 Pulse 110 H 10/10/21 08:10 Resp 18 10/10/21 08:13 BP 98/68 10/10/21 08:10 Pulse Ox 80 L 10/10/21 08:10 Intake & Output 10/09/21 10/10/21 10/10/21 18:59 06:59 18:59 Intake Total 790 10 260 Output Total 1800 1602 Balance -1010 -1592 260 Weight 68.039 kg Intake: IV 10 10 0.9 10 Invasive Line 10 10 Oral 780 260 Output: Urine 1800 1600 Stool 2 Other: Voiding Method Bedside Commode Bedside Commode # Voids 1 1 # Bowel Movements 1 1 - Exam GENERAL EXAM: Alert, very pleasant 71-year-old female patient, up in a chair at the bedside, on 6 L high flow nasal cannula, comfortable in no apparent di stress. HEAD: Normocephalic. EYES: Normal reaction of pupils, equal size. NOSE: Clear with pink turbinates. THROAT: No erythema or exudates. NECK: No masses, no JVD. CHEST: No chest wall deformity. LUNGS: Equal air entry with crackles in bilateral bases. CVS: S1 and S2 normal with no audible murmur, regular rhythm. ABDOMEN: No hepatosplenomegaly, normal bowel sounds, no guarding or rigidity. SPINE: No scoliosis or deformity SKIN: No rashes CENTRAL NERVOUS SYSTEM: No focal deficits, tone is normal in all 4 extremities. EXTREMITIES: There is no peripheral edema. No clubbing, no cyanosis. Perip heral pulses are intact. - Labs CBC & Chem 7: 10/08/21 05:34 10/08/21 05:34 Labs: Abnormal Lab Results - Last 24 Hours (Table) 10/09/21 10/09/21 10/09/21 Range/Units 12:11 16:22 19:36 POC Glucose (mg/dL) 156 H 232 H 149 H (75-99) mg/dL 10/10/21 Range/Units 06:04 POC Glucose (mg/dL) 125 H (75-99) mg/dL Assessment and Plan Assessment: 1 Acute on chronic hypoxemic respiratory failure secondary to acute COVID-19 pneumonia. The patient had previously been vaccinated. No booster. Unsure as to when her symptoms started. She is a poor historian. Currently on 6 L high flow nasal cannula. Remains on IV Decadron 6 mg twice a day, Eliquis, vitamins. 2 Chronic hypoxemic respiratory failure secondary to interstitial lung disease, suspect secondary to rheumatoid arthritis, normally on 2 L nasal cannula 3 Rheumatoid arthritis previously on Xeljanz and Humira 4 History of sub-acute massive pulmonary embolism. Recommended long-term anticoagulation and remains on Eliquis 5 History of left lower extremity DVT, currently on Eliquis 6 Chronic obstructive pulmonary disease 7 Previous history of chronic tobacco dependence Plan: The patient was seen and evaluated Currently on 6 L high flow nasal cannula Continue to titrate the FiO2 as tolerated Decrease Decadron to once a day Continue Eliquis, vitamin supplements Plan is for home with home care I, the cosigning physician, performed a history & physical examination of the patient. Lungs sounds are coarse crackles in the posterior bases. Maintaining O2 saturations in the 90s on 6 L high flow nasal cannula. I discussed the assessment and plan of care with my nurse practitioner, Suzy Donohue. I attest to the above note as dictated by her.
--- NOTE | 2021-10-10 11:47 | P.DS ---
Providers Date of admission: 09/20/21 15:54 Expected date of discharge: 10/10/21 Attending physician: Lamont Granados MD Consults: 09/20/21 14:31 Consult Physician Routine Consulting Provider: Alexis Avalos Consult Reason/Comments: Covid 19 pneumonia, hypoxic respiratory failure Do you want consulting provider notified?: Yes Primary care physician: Lamont Granados MD Hospital Course: Final Diagnoses: Acute on chronic hypoxemic respiratory failure secondary to COVID-19 pneumonia. Patient is vaccinated X 2 doses. Atrial fibrillation new onset. Chronic hypoxic respiratory failure secondary to interstitial lung disease due to rheumatoid arthritis on 2 L oxygen via nasal cannula. Lactic acidosis Rheumatoid arthritis Arthralgia, probably related to rheumatoid arthritis, possibly related to Covid. History of subacute massive PE and is currently on lifelong anticoagulation with Eliquis History of DVT left lower extremity COPD,hx Prior history of smoking Hospital course:This is a 71-year-old female admitted with acute Covid pneumonia, acute on chronic hypoxic respiratory failure, new onset atrial fibrillation and multiple other medical issues. Patient developed atrial fibrillation with RVR last night transferred to telemetry and converted back to sinus rhythm prior to initiation of Cardizem drip. Anticoagulated with Eliquis. Denies chest pain, palpitations or chest pressure. Maintained on covid cocktail. Continues on 15 L high flow nasal cannula to maintain O2 sats in the 90s. Afebrile. Labs pending. 09/24/2021 maintained on COVID cocktail. Anticoagulated with Eliquis. continues on high flow nasal cannula 15 L/100% facemask maintaining O2 sats in the low 90s. Reports nonproductive cough. Denies increased shortness of breath.LDL decreased to 1058, CRP down to 3.7. Maintain sinus rhythm. Denies chest pain, chest pressure or palpitations. Echo pending. 09/25/21 maintaining O2 sats in the low 90s on airflow 55/75 FIO2. Continues on covid cocktail. Sitting up in bed, denies chest pain, chest pressure, or cough. Denies nausea vomiting or diarrhea. Reports she's freezing -room is cold. Afebrile. Limited echo reporting normal LV function, right ventricle mild to moderately enlarged. 09/26/2021 continues on Covid Cocktail. continues to feel well, denies cough. Afebrile, denies any chills. Maintaining O2 sats in the low 90s to high 80s on airvo 55 L/70% Fio2. Denies any chest pain, chest pressure palpitations or increasing shortness of breath. Afebrile, d-dimer 5.2 LDH, CRP improving. Chest x-ray reports unchanged. 09/27/2021 Feels better today ,reports able to deep breath easier. Denies cough.Maintaining O2 sats in the 90s on flow rate 55/ 70 Fio2. Continues on Covid cocktail .Afebrile, WBC 16.1. Anticoagulated on Eliquis. 09/30/2021 maintained on airflow, flow rate 50, FiO2 55%, maintaining O2 sat in the low 90s. Denies any increased shortness of breath.Denies nausea vomiting, denies cough. Afebrile. Complains of constipation. Denies chest pain, palpitations or chest pressure. Denies lightheadedness dizziness or focal deficits. 10/01/2021 reports doing well, asymptomatic on AIRVO 50% plus nonrebreather, maintaining O2 sats in the 90s. Denies shortness of breath. Denies chest pressure. Reports achy joints-reports common with her rheumatoid arthritis;could be covid related. Denies nausea vomiting or diarrhea. no overnight events. Decadron increased yesterday .Maintained on AIrvo 45L/Fio2 50%, maintaining O2 sats in the high 80s to low 90s. Denies nausea vomiting or diarrhea. Denies chest pain, palpitations. Reports increased shortness of breath with minimal exertion.LAbs pending. Afebrile. 10/03/2021 Airvo 45L/FIO2 50%, O2 sats in the low 90s. Chest x-ray pending. Afebrile. Labs pending. Reports exertional shortness of breath. Denies chest pain, palpitations. Denies nausea vomiting or diarrhea. Denies lightheadedness, dizziness or focal deficits. 10/04/2021 continues on Covid Cocktail. maintaining O2 sats in the high 80s to low 90s on 10 L high flow nasal cannula. Occasional nonproductive cough. Reports she had been up in the chair, yesterday. Denies nausea vomiting or diarrhea. Blood sugars controlled. 10/07/2021 exertional dyspnea, currently sitting up in bed wrapped up in her blankets maintaining O2 sats in the high 80s on 6 L high flow nasal cannula. Reports feeling "chilled", afebrile. This morning oxygen requirements has been up and down between 6-10 L. Continues on covid cocktail. Last bowel movement documented on 10/05/2021. 10/08/2021 maintained on Covid cocktail .during the night, desatted, developed sinus tachycardia, spontaneously resolved with increased O2. Later this morning while getting up to bedside commode, desatted to 55% on 6 L high flow nasal cannula-minimal reserve, required approximately 10 minutes before O2 sats were up to 80%. Chest x-ray reporting redemonstrated background chronic small fibrotic changes bilaterally, stable left lower lung opacity. LDH increased, CRP decreased. Reports increased energy. 10/09/2021 sitting up at side of bed, short of breath, maintaining O2 sats of high 80s to low 90s on 6 L high flow nasal cannula. Throughout yesterday patient significantly dropped O2 sat with minimal exertion, slow regaining adequate oxygen saturation. Discussed goal of discharge dependent upon maintaining steady oxygenation. Afebrile. Significant clinical improvement. Continues on Decadron, vitamin supplements, Eliquis. Maintaining O2 sats in the high 80s to low 90s on 6 L high flow nasal cannula. Patient is currently sitting up in chair, maintaining O2 sats of 94%. Conversing without shortness of breath. Denies chest pain, palpitations .no acute distress.Patient will be discharged home today pending final [facility] recommendations and clearance per pulmonary. Patient has been on Decadron and will resume prednisone at [facility]. The impression and plan of care has been dictated as directed. : I performed a history and examination of this patient, discussed the same with the dictator. I agree with the dictator's note ,documented as a scribe. Any additional findings or plans will be noted. Patient Condition at Discharge: Stable Plan - Discharge Summary New Discharge Prescriptions: New Zinc Sulfate [Orazinc] 220 mg PO DAILY #30 cap Famotidine [Pepcid] 40 mg PO DAILY #60 tab Sennosides-Docusate Sodium [Senokot-S] 2 each PO HS tab Calcium Carbonate [Tums] 500 mg PO TID PRN PRN Reason: Heartburn Cholecalciferol [Vitamin D3 (125 Mcg = 5000 Iu)] 125 mcg PO DAILY tablet Albuterol Inhaler [Ventolin Hfa Inhaler] 2 puff INHALATION RT-Q6H PRN gm PRN Reason: Shortness Of Breath Or Wheezing Ascorbic Acid [Vitamin C] 1,000 mg PO DAILY tab Continue predniSONE 10 mg PO BID #0 Budesonide [Pulmicort] 0.5 mg INHALATION RT-BID Apixaban [Eliquis] 5 mg PO BID Discharge Medication List Apixaban [Eliquis] 5 mg PO BID 09/20/21 [History] Budesonide [Pulmicort] 0.5 mg INHALATION RT-BID 09/20/21 [History] Albuterol Inhaler [Ventolin Hfa Inhaler] 2 puff INHALATION RT-Q6H PRN gm 10/10/21 [Rx] Ascorbic Acid [Vitamin C] 1,000 mg PO DAILY tab 10/10/21 [Rx] Calcium Carbonate [Tums] 500 mg PO TID PRN 10/10/21 [Rx] Cholecalciferol [Vitamin D3 (125 Mcg = 5000 Iu)] 125 mcg PO DAILY tablet 10/10/21 [Rx] Famotidine [Pepcid] 40 mg PO DAILY #60 tab 10/10/21 [Rx] Sennosides-Docusate Sodium [Senokot-S] 2 each PO HS tab 10/10/21 [Rx] Zinc Sulfate [Orazinc] 220 mg PO DAILY #30 cap 10/10/21 [Rx] predniSONE 10 mg PO BID #0 10/10/21 [Rx] Follow up Appointment(s)/Referral(s): Lamont Granados MD [Primary Care Provider] - 1 Week [facility] [NON-STAFF] - 1-2 Days
[2021-10-10 12:48] VITALS: BP 109/71; PULSE 71; RESP 26; TEMP 97.6
[2021-10-10 16:01] LABS: Glucose,Whole Blood 217 mg/dL (75-99)
[2021-10-11] MEDS ORDERED: DEXAMETHASONE SOD PHOSPHATE 10 MG/ML 1 ML VIAL PO SCH (09:00)
== END 2021-10-10 18:50 | disposition home health service (06) | DRG 177 ==
LOC: EC 12:46 → 4SSUR 15:54 → 3SCARD 09-23 02:21
PROVIDERS: ADMIT Family Medicine; ATTEND Family Medicine
PROC: 5A0955A Assistance with Respiratory Ventilation, Greater than 96 Consecutive Hours, High Flow/Velocity Cannula (ICD-10-PCS; principal; 2021-09-20)
PROC: 5A0945A Assistance with Respiratory Ventilation, 24-96 Consecutive Hours, High Flow/Velocity Cannula (ICD-10-PCS; 2021-10-07)
PROC: 5A0935A Assistance with Respiratory Ventilation, Less than 24 Consecutive Hours, High Flow/Velocity Cannula (ICD-10-PCS; 2021-10-09)
DX: U07.1 COVID-19 (principal); J12.82 Pneumonia due to coronavirus disease 2019; J96.21 Acute and chronic respiratory failure with hypoxia; J44.0 Chronic obstructive pulmonary disease with (acute) lower respiratory infection; D84.821 Immunodeficiency due to drugs; E87.2 Acidosis; I48.0 Paroxysmal atrial fibrillation; J84.10 Pulmonary fibrosis, unspecified; Z86.711 Personal history of pulmonary embolism; Z79.01 Long term (current) use of anticoagulants; Z86.718 Personal history of other venous thrombosis and embolism; K44.9 Diaphragmatic hernia without obstruction or gangrene; K59.00 Constipation, unspecified; M05.10 Rheumatoid lung disease with rheumatoid arthritis of unspecified site; T38.0X5A Adverse effect of glucocorticoids and synthetic analogues, initial encounter; Z59.9 Problem related to housing and economic circumstances, unspecified; Z79.899 Other long term (current) drug therapy; Z87.891 Personal history of nicotine dependence; Z99.81 Dependence on supplemental oxygen; Z98.890 Other specified postprocedural states; Z79.51 Long term (current) use of inhaled steroids; Z79.52 Long term (current) use of systemic steroids
CPT/HCPCS: 36415; 71045; 71046; 71275; 80048; 80053; 82728; 83605; 83615; 83735; 83880; 84145; 84439; 84443; 84484; 85025; 85027; 85379; 85610; 85730; 86140; 87040; 87502; 87635; 93005; 93308; 94640; 94760; 96374; 99291